=== PATIENT | female | born 1950 | race Caucasian/White ===

== ENCOUNTER → 2017-01-11 06:00 | Outpatient (REF) | payer MEDICARE, SELFPAY ==
[2017-01-11 07:57] LABS: Hematocrit 34.4 % (37-47); Hemoglobin 11.1 g/dl (12.0-15.0); Mean Corp Hgb Conc 32.3 g/gl (32-36); Mean Corpuscular Volume 89.8 fL (81-99); Mean Platelet Vol. 10.2 fl (6.2-12.0); Platelet Count 218 K/mm3 (150-450); RBC Distribution Width CV 13.3 % (11.6-14.6); RBC Distribution Width SD 43.1 fl (35.1-43.9); Red Blood Count 3.83 M/mm3 (4.2-5.4); White Blood Count 16.2 K/mm3 (4.4-11.0)
[2017-01-11 07:59] LABS: Scan Indicated on CBC? Y/N NO
[2017-01-11 08:04] LABS: Anion Gap 11 (5-15); BUN 20 mg/dL (7-18); BUN/Creat Ratio 58.8 RATIO (10-20); Calcium,Total 8.8 mg/dL (8.5-10.1); Chloride 100 mmol/L (98-107); Creatinine, Serum 0.34 mg/dL (0.55-1.02); EST Glomerular Filtration Rate 205 mL/min (>60); Est Glom Filt Rate - Afr Amer 249 mL/min (>60); Glucose 108 mg/dL (70-110); Potassium 3.4 mmol/L (3.5-5.1); Sodium Level 136 mmol/L (136-145)
== END ==
LOC: OLS.ACH 06:00
PROVIDERS: Visit Provider Family Medicine
DX: N39.0 Urinary tract infection, site not specified (principal)
CPT/HCPCS: 36415; 80048; 85027

== ENCOUNTER → 2017-02-21 05:00 | Outpatient (REF) | payer MEDICARE, SELFPAY ==
[2017-02-21 08:27] LABS: Hemoglobin 10.1 g/dl (12.0-15.0); Mean Corp Hgb Conc 32.6 g/gl (32-36); Mean Corpuscular Hgb 29.1 pg (27.0-32.0); Mean Corpuscular Volume 89.3 fL (81-99); Mean Platelet Vol. 10.5 fl (6.2-12.0); Platelet Count 227 K/mm3 (150-450); RBC Distribution Width CV 14.2 % (11.6-14.6); RBC Distribution Width SD 45.5 fl (35.1-43.9); Red Blood Count 3.47 M/mm3 (4.2-5.4); Scan Indicated on CBC? Y/N NO; White Blood Count 16.3 K/mm3 (4.4-11.0)
[2017-02-21 08:48] LABS: Anion Gap 11 (5-15); BUN 17 mg/dL (7-18); BUN/Creat Ratio 72.3 RATIO (10-20); Calcium,Total 8.4 mg/dL (8.5-10.1); Chloride 102 mmol/L (98-107); Creatinine, Serum 0.24 mg/dL (0.55-1.02); EST Glomerular Filtration Rate 315 mL/min (>60); Est Glom Filt Rate - Afr Amer 381 mL/min (>60); Glucose 119 mg/dL (70-110); Potassium 3.2 mmol/L (3.5-5.1); Sodium Level 137 mmol/L (136-145)
== END ==
LOC: OLS.ACH 05:00
PROVIDERS: Visit Provider Family Medicine
DX: N39.0 Urinary tract infection, site not specified (principal); A41.9 Sepsis, unspecified organism
CPT/HCPCS: 36415; 80048; 85027; 87804

== ENCOUNTER → 2017-02-26 16:00 | Outpatient (REF) | payer MEDICARE, SELFPAY | LOC: OLS.ACH 16:00 | PROVIDERS: Visit Provider Family Medicine | DX: J30.9 Allergic rhinitis, unspecified (principal) | CPT/HCPCS: 87804 ==

== ENCOUNTER → 2017-03-19 05:00 | Outpatient (REF) | payer MEDICARE, SELFPAY ==
[2017-03-19 08:04] LABS: Absolute Lymphocyte Count 0.95 X10^3/ul (0.83-4.51); Basophil# 0.02 X10^3/uL; Basophil% 0.3 % (0-1); Eosinophil# 0.35 X10^3/uL; Eosinophils% 5.7 % (0-5); Hematocrit 33.7 % (37-47); Hemoglobin 10.9 g/dl (12.0-15.0); Lymphocyte # 0.95 X10^3/ul (4.0); Lymphocyte % 15.4 % (19-41); Mean Corp Hgb Conc 32.3 g/gl (32-36); Mean Corpuscular Hgb 28.9 pg (27.0-32.0); Mean Corpuscular Volume 89.4 fL (81-99); Mean Platelet Vol. 10.3 fl (6.2-12.0); Monocyte# 0.81 X10^3/uL; Monocyte% 13.1 % (0-10); Neutrophil % 64.7 % (47-70); Platelet Count 216 K/mm3 (150-450); RBC Distribution Width CV 14.2 % (11.6-14.6); RBC Distribution Width SD 45.1 fl (35.1-43.9); Red Blood Count 3.77 M/mm3 (4.2-5.4); White Blood Count 6.2 K/mm3 (4.4-11.0)
[2017-03-19 08:34] LABS: AST(SGOT) 12 U/L (15-37); Alanine Aminotransfer ALT/SGPT 15 U/L (12-78); Albumin, Serum 3.2 g/dL (3.4-5.0); Alkaline Phosphatase 73 U/L (45-117); Anion Gap 8 (5-15); BUN 17 mg/dL (7-18); BUN/Creat Ratio 73.9 RATIO (10-20); Calcium,Total 8.4 mg/dL (8.5-10.1); Chloride 107 mmol/L (98-107); Creatinine, Serum 0.23 mg/dL (0.55-1.02); EST Glomerular Filtration Rate 322 mL/min (>60); Est Glom Filt Rate - Afr Amer 390 mL/min (>60); Globulin 3.3 g/dL (2.2-4.2); Glucose 83 mg/dL (70-110); Potassium 4.6 mmol/L (3.5-5.1); Protein, Total 6.5 g/dL (6.4-8.2); Sodium Level 140 mmol/L (136-145)
[2017-03-19 08:37] LABS: POSITIVE COUNT NO; POSITIVE DIFFERENTIAL NO; POSITIVE MORPHOLOGY NO
[2017-03-19 08:43] LABS: Vitamin D,25 Hydroxy 32.2 ng/mL
== END ==
LOC: OLS.ACH 05:00
PROVIDERS: Visit Provider Family Medicine
DX: I35.1 Nonrheumatic aortic (valve) insufficiency (principal); Z87.311 Personal history of (healed) other pathological fracture
CPT/HCPCS: 36415; 80053; 82306; 85025

== ENCOUNTER → 2017-05-30 16:31 | Outpatient (REF) | payer MEDICARE, SELFPAY ==
[2017-05-30 17:12] LABS: Color, Urine Yellow (Yellow); Glucose, Dipstick Normal (Normal); Ketone-Dipstick Negative (Negative); Leukocyte Esterase-Dipstick Negative /ul (Negative); Nitrite-Dipstick Negative (Negative); Occult Blood-Urine 10 /ul (Negative); Protein-Dipstick Negative (Negative); Urine Bilirubin Dipstick Negative (Negative); Urine Clarity Clear (Clear); Urine Urobilinogen Normal (Normal)
[2017-05-30 17:13] LABS: Hematocrit 36.2 % (37-47); Hemoglobin 11.5 g/dl (12.0-15.0); Mean Corp Hgb Conc 31.8 g/gl (32-36); Mean Corpuscular Volume 88.1 fL (81-99); Mean Platelet Vol. 10.1 fl (6.2-12.0); Platelet Count 228 K/mm3 (150-450); RBC Distribution Width CV 13.7 % (11.6-14.6); RBC Distribution Width SD 43.7 fl (35.1-43.9); Red Blood Count 4.11 M/mm3 (4.2-5.4); White Blood Count 5.7 K/mm3 (4.4-11.0)
[2017-05-30 17:15] LABS: Scan Indicated on CBC? Y/N NO
[2017-05-30 17:42] LABS: Anion Gap 7 (5-15); BUN 20 mg/dL (7-18); BUN/Creat Ratio 64.7 RATIO (10-20); Calcium,Total 8.7 mg/dL (8.5-10.1); Chloride 102 mmol/L (98-107); Creatinine, Serum 0.31 mg/dL (0.55-1.02); EST Glomerular Filtration Rate 229 mL/min (>60); Est Glom Filt Rate - Afr Amer 277 mL/min (>60); Glucose 112 mg/dL (74-106); Potassium 4.8 mmol/L (3.5-5.1); Sodium Level 136 mmol/L (136-145)
== END ==
LOC: OLS.ACH 16:31
PROVIDERS: Visit Provider Family Medicine
DX: N39.0 Urinary tract infection, site not specified (principal)
CPT/HCPCS: 36415; 80048; 81002; 85027; 87086

== ENCOUNTER → 2017-06-18 05:00 | Outpatient (REF) | payer MEDICARE, SELFPAY ==
[2017-06-18 08:10] LABS: Absolute Lymphocyte Count 0.83 X10^3/ul (0.83-4.51); Basophil# 0.01 X10^3/uL; Basophil% 0.1 % (0-1); Eosinophil# 0.08 X10^3/uL; Eosinophils% 1.2 % (0-5); Hematocrit 33.9 % (37-47); Hemoglobin 10.9 g/dl (12.0-15.0); Lymphocyte # 0.83 X10^3/ul (4.0); Lymphocyte % 12.4 % (19-41); Mean Corp Hgb Conc 32.2 g/gl (32-36); Mean Corpuscular Hgb 28.6 pg (27.0-32.0); Mean Platelet Vol. 10.4 fl (6.2-12.0); Monocyte# 0.71 X10^3/uL; Monocyte% 10.6 % (0-10); Neutrophil # 5.03 X10^3/uL (2.7-7.7); Neutrophil % 75.3 % (47-70); Platelet Count 197 K/mm3 (150-450); RBC Distribution Width CV 13.6 % (11.6-14.6); RBC Distribution Width SD 43.9 fl (35.1-43.9); Red Blood Count 3.81 M/mm3 (4.2-5.4); White Blood Count 6.7 K/mm3 (4.4-11.0)
[2017-06-18 08:11] LABS: Differential Indicated SCAN CRITERIA MET; POSITIVE COUNT YES; POSITIVE DIFFERENTIAL NO; POSITIVE MORPHOLOGY NO
[2017-06-18 08:30] LABS: Differential Comment SCANNED; Platelet Estimate ADEQUATE (ADEQ)
[2017-06-18 08:32] LABS: BUN 16 mg/dL (7-18); Glucose 82 mg/dL (74-106)
[2017-06-18 08:33] LABS: Anion Gap 11 (5-15); BUN/Creat Ratio 55.2 RATIO (10-20); Calcium,Total 7.9 mg/dL (8.5-10.1); Chloride 107 mmol/L (98-107); Creatinine, Serum 0.29 mg/dL (0.55-1.02); EST Glomerular Filtration Rate 247 mL/min (>60); Est Glom Filt Rate - Afr Amer 299 mL/min (>60); Potassium 4.7 mmol/L (3.5-5.1); Sodium Level 141 mmol/L (136-145)
== END ==
LOC: OLS.ACH 05:00
PROVIDERS: Visit Provider Family Medicine
DX: I35.1 Nonrheumatic aortic (valve) insufficiency (principal)
CPT/HCPCS: 36415; 80048; 85025

== ENCOUNTER → 2017-08-24 18:15 | Outpatient (REF) | payer MEDICARE, SELFPAY ==
[2017-08-24 19:06] LABS: Hematocrit 32.7 % (37-47); Hemoglobin 10.8 g/dl (12.0-15.0); Mean Corpuscular Volume 87.9 fL (81-99); Mean Platelet Vol. 9.7 fl (6.2-12.0); Platelet Count 197 K/mm3 (150-450); RBC Distribution Width CV 13.4 % (11.6-14.6); RBC Distribution Width SD 43.3 fl (35.1-43.9); Red Blood Count 3.72 M/mm3 (4.2-5.4); Scan Indicated on CBC? Y/N NO; White Blood Count 21.3 K/mm3 (4.4-11.0)
[2017-08-24 23:54] LABS: Color, Urine Yellow (Yellow); Glucose, Dipstick Normal (Normal); Ketone-Dipstick 15 mg/dl (Negative); Leukocyte Esterase-Dipstick 500 /ul (Negative); Nitrite-Dipstick Negative (Negative); Occult Blood-Urine 250 /ul (Negative); Protein-Dipstick 30 mg/dl (Negative); Specific Gravity, Urine 1.015 (1.002-1.030); Urine Bilirubin Dipstick Negative (Negative); Urine Clarity Sl. Cloudy (Clear); Urine Urobilinogen Normal (Normal)
== END ==
LOC: OLS.ACH 18:15
PROVIDERS: Visit Provider Family Medicine
DX: I70.203 Unspecified atherosclerosis of native arteries of extremities, bilateral legs (principal); N31.9 Neuromuscular dysfunction of bladder, unspecified
CPT/HCPCS: 36415; 81002; 85027; 87086; 87088; 87186

== ENCOUNTER → 2017-09-17 05:00 | Outpatient (REF) | payer MEDICARE, SELFPAY ==
[2017-09-17 08:27] LABS: Absolute Lymphocyte Count 0.93 X10^3/ul (0.83-4.51); Absolute Neutrophil Count 4.4 X10^3/uL (2.0-7.7); Basophil# 0.01 X10^3/uL; Basophil% 0.2 % (0-1); Eosinophil# 0.17 X10^3/uL; Eosinophils% 2.7 % (0-5); Hemoglobin 10.7 g/dl (12.0-15.0); Lymphocyte # 0.93 X10^3/ul (4.0); Mean Corp Hgb Conc 32.4 g/gl (32-36); Mean Corpuscular Hgb 29.1 pg (27.0-32.0); Mean Corpuscular Volume 89.7 fL (81-99); Mean Platelet Vol. 10.3 fl (6.2-12.0); Monocyte% 11.3 % (0-10); Neutrophil # 4.39 X10^3/uL (2.7-7.7); Neutrophil % 70.6 % (47-70); Platelet Count 220 K/mm3 (150-450); RBC Distribution Width CV 13.3 % (11.6-14.6); RBC Distribution Width SD 42.9 fl (35.1-43.9); Red Blood Count 3.68 M/mm3 (4.2-5.4); White Blood Count 6.2 K/mm3 (4.4-11.0)
[2017-09-17 08:31] LABS: POSITIVE COUNT NO; POSITIVE DIFFERENTIAL NO; POSITIVE MORPHOLOGY NO
[2017-09-17 09:07] LABS: ALB/GLOB Ratio 1.1 RATIO (0.9-2.4); AST(SGOT) 15 U/L (15-37); Alanine Aminotransfer ALT/SGPT 16 U/L (13-56); Albumin, Serum 3.4 g/dL (3.2-5.0); Alkaline Phosphatase 63 U/L (45-117); Anion Gap 10 (5-15); BUN 20 mg/dL (7-18); BUN/Creat Ratio 56.3 RATIO (10-20); Calcium,Total 8.3 mg/dL (8.5-10.1); Chloride 104 mmol/L (98-107); Creatinine, Serum 0.36 mg/dL (0.55-1.02); EST Glomerular Filtration Rate 195 mL/min (>60); Est Glom Filt Rate - Afr Amer 236 mL/min (>60); Globulin 3.1 g/dL (2.2-4.2); Glucose 80 mg/dL (74-106); Protein, Total 6.5 g/dL (6.4-8.2); Sodium Level 142 mmol/L (136-145)
== END ==
LOC: OLS.ACH 05:00
PROVIDERS: Visit Provider Family Medicine
DX: I35.1 Nonrheumatic aortic (valve) insufficiency (principal)
CPT/HCPCS: 36415; 80053; 85025

== ENCOUNTER → 2017-09-19 19:00 | Outpatient (REF) | payer MEDICARE, SELFPAY ==
[2017-09-19 21:15] LABS: Bacteria 0 SEEN /hpf (None Seen); Mucous, Urine 0 SEEN /hpf (<or=2+); Red Blood Cells-Urine 0 SEEN /hpf (0-5); White Blood Cells 0 SEEN /hpf (0-5)
[2017-09-19 21:20] LABS: Color, Urine Yellow (Yellow); Glucose, Dipstick Normal (Normal); Ketone-Dipstick Negative (Negative); Leukocyte Esterase-Dipstick Negative /ul (Negative); Nitrite-Dipstick Negative (Negative); Occult Blood-Urine Negative /ul (Negative); Protein-Dipstick Negative (Negative); Urine Bilirubin Dipstick Negative (Negative); Urine Clarity Clear (Clear); Urine Urobilinogen Normal (Normal)
[2017-09-19 21:30] LABS: Squamous Epithelial Cells - UA 0-5 SEEN /hpf (5-10)
== END ==
LOC: OLS.ACH 19:00
PROVIDERS: Visit Provider Family Medicine
DX: N31.9 Neuromuscular dysfunction of bladder, unspecified (principal); R32 Unspecified urinary incontinence
CPT/HCPCS: 81001; 87086

== ENCOUNTER → 2017-12-17 05:00 | Outpatient (REF) | payer MEDICARE, SELFPAY ==
[2017-12-17 07:54] LABS: Absolute Neutrophil Count 4.5 X10^3/uL (2.0-7.7); Basophil# 0.02 X10^3/uL; Basophil% 0.3 % (0-1); Eosinophil# 0.24 X10^3/uL; Eosinophils% 3.8 % (0-5); Hematocrit 32.9 % (37-47); Hemoglobin 10.6 g/dl (12.0-15.0); Lymphocyte % 12.7 % (19-41); Mean Corp Hgb Conc 32.2 g/gl (32-36); Mean Corpuscular Hgb 28.9 pg (27.0-32.0); Mean Corpuscular Volume 89.6 fL (81-99); Monocyte# 0.72 X10^3/uL; Monocyte% 11.4 % (0-10); Neutrophil % 71.3 % (47-70); Platelet Count 211 K/mm3 (150-450); RBC Distribution Width CV 12.9 % (11.6-14.6); RBC Distribution Width SD 41.2 fl (35.1-43.9); Red Blood Count 3.67 M/mm3 (4.2-5.4); White Blood Count 6.3 K/mm3 (4.4-11.0)
[2017-12-17 07:57] LABS: POSITIVE COUNT NO; POSITIVE DIFFERENTIAL NO; POSITIVE MORPHOLOGY NO
[2017-12-17 08:10] LABS: ALB/GLOB Ratio 0.8 RATIO (0.9-2.4); AST(SGOT) 10 U/L (15-37); Alanine Aminotransfer ALT/SGPT 17 U/L (13-56); Alkaline Phosphatase 69 U/L (45-117); Anion Gap 8 (5-15); BUN 16 mg/dL (7-18); BUN/Creat Ratio 49.4 RATIO (10-20); Calcium,Total 8.5 mg/dL (8.5-10.1); Chloride 105 mmol/L (98-107); Creatinine, Serum 0.32 mg/dL (0.55-1.02); EST Glomerular Filtration Rate 217 mL/min (>60); Est Glom Filt Rate - Afr Amer 262 mL/min (>60); Globulin 3.8 g/dL (2.2-4.2); Glucose 91 mg/dL (74-106); Potassium 4.3 mmol/L (3.5-5.1); Protein, Total 6.8 g/dL (6.4-8.2); Sodium Level 140 mmol/L (136-145)
== END ==
LOC: OLS.ACH 05:00
PROVIDERS: Visit Provider Family Medicine
DX: I35.1 Nonrheumatic aortic (valve) insufficiency (principal)
CPT/HCPCS: 36415; 80053; 85025

== ENCOUNTER → 2018-02-26 17:00 | Outpatient (REF) | payer MEDICARE, SELFPAY ==
--- OUTSIDE RECORDS SUMMARY | 2018-05-31 07:59 | XMS RPT_ITS ---
:1950 Author Organization OHIP Care Team Providers Name Role Phone Rogelio Jason Attending Unavailable Petrilla, Rogelio Attending Unavailable Petrilla, Rogelio Attending Unavailable PETRILLA, ROGELIO Attending Unavailable Petrilla, Rogelio Attending Unavailable Petrilla, Rogelio Attending Unavailable Petrilla, Rogelio Attending Unavailable Petrilla, Rogelio Attending Unavailable Petrilla, Rogelio Attending Unavailable Petrilla, Rogelio Attending Unavailable UNKNOWN, PROVIDER Referring Unavailable Rogelio Jason Primary Care Unavailable Edgar Jansen Attending Unavailable DEANN TIMMONS Admitting Unavailable DEANN TIMMONS Attending Unavailable Deann Timmons Attending Unavailable DMITRY WEST Primary Care Unavailable DILIA CHAPIN Admitting Unavailable Rogelio Jason Referring Unavailable PROBLEMS PROBLEMS DATE TYPE CONDITION / CODE ATTENDING STATUS SOURCE 03/20/2018 Unknown R32 - Unspecified Petrilla, Active [place] urinary incontinence [facility] / R32(ICD-10) Hospital Repository 01/16/2018 Unknown 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, bilateral legs / I70.203(ICD-10) 05/30/2017 Admitting Tachycardia, Edgar Jansen Active [facility] Diagnosis unspecified / System R00.0(ICD-10) Repository 05/30/2017 Admitting Cerebral palsy, Edgar Jansen [employer] [facility] Diagnosis unspecified / System G80.9(ICD-10) Repository 05/30/2017 Admitting Multiple sclerosis / Edgar Jansen [employer] [facility] Diagnosis G35(ICD-10) System Repository 05/30/2017 Admitting Major depressive Edgar Jansen [employer] [facility] Diagnosis disorder, single System episode, unspecified Repository / F32.9(ICD-10) 05/30/2017 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 / Repository Z90.710(ICD-10) 05/30/2017 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 [employer] [facility] Diagnosis use of aspirin / System Z79.82(ICD-10) Repository 05/30/2017 Admitting Allergy status to Edgar Jansen [employer] [facility] Diagnosis other antibiotic System agents status / Repository Z88.1(ICD-10) 05/30/2017 Admitting Allergy status to Edgar Jansen [employer] [facility] Diagnosis penicillin / System Z88.0(ICD-10) Repository 05/30/2017 Admitting Allergy status to Edgar Jansen [employer] [facility] Diagnosis oth drug/meds/biol System subst status / Repository Z88.8(ICD-10) 05/30/2017 Admitting Palpitations / Edgar Jansen [employer] [facility] Diagnosis R00.2(ICD-10) System Repository 09/04/2017 Unknown N39.0 - Urinary Petrilla, Active [place] tract infection, [facility] site not specified / Hospital N39.0(ICD-10) Repository PROCEDURES PROCEDURES No Procedure Records FoundRESULTS RESULTS CBC W/DIFF, AUTOMATED Collected: 03/25/2018 Status: F Source: [place] 5:01 AM [facility] REPOSITORY Order Comment: 211/1 TYPE CODE TESTS RESULT OUT OF RANGE REFERENCE UNITS LAB L100.1000 4.4-11.0 K/mm3 Normal WBC 4.4 LAB L100.1200 4.2-5.4 M/mm3 Low RBC 3.64 LAB L100.1300 12.0-15.0 g/dl Low HGB 10.3 LAB L100.1400 37-47 % Low HCT 32.4 LAB L100.1500 81-99 fL Normal MCV 89.0 LAB L100.1600 27.0-32.0 pg Normal MCH 28.3 LAB L100.1700 32-36 g/gl Low MCHC 31.8 LAB L100.1810 11.6-14.6 % Normal RDW CV 14.1 LAB L100.1820 35.1-43.9 fl High RDW SD 44.8 LAB L100.1900 150-450 K/mm3 Normal PLT 173 LAB L100.2000 6.2-12.0 fl Normal MPV 9.8 LAB L100.2100 47-70 % Normal NEUT% 64.3 LAB L100.2200 19-41 % Low LY% 17.5 LAB L100.2300 0-10 % High MONO% 14.7 LAB L100.2400 0-5 % Normal EO% 2.5 LAB L100.2500 0-1 % Normal BASO% 0.5 LAB L100.2550 0.0-0.9 % Normal IM GRAN % 0.500 Result Comment: IG% - Immature Granulocytes (promyelocytes, myelocytes and metamyelocytes) > 1% indicates that a LEFT SHIFT is Present. LAB L100.2620 2.0-7.7 X10 3/uL Normal Absolute Neut 2.8 LAB L100.2720 0.83-4.51 X10 3/ul Low Absolute Lymph 0.77 Performed By: #### L100.0100 #### [facility] [address] [place] [address]. [place], [place], [address] COMPREHENSIVE METABOLIC Collected: 03/25/2018 Status: F Source: [place] 5:01 AM [facility] REPOSITORY Order Comment: TYPE CODE TESTS RESULT OUT OF RANGE REFERENCE UNITS LAB L501.0100 74-106 mg/dL Normal GLU 86 Result Comment: Please note revised GLUCOSE reference range effective 2017. LAB L501.1000 7-18 mg/dL Normal BUN 15 LAB L501.1100 0.55-1.02 mg/dL Low CREAT,SERUM 0.31 Result Comment: The validity of the calculated GFR AND GFRAA in patients over 70 years has not been determined. Clinical correlation is essential. LAB L501.1110 >60 mL/min Normal EST GFR 229 Result Comment: Non- GFR Calc LAB L501.1115 >60 mL/min Normal EST GFR - AA 278 Result Comment: GFR Calc LAB L501.1300 10-20 RATIO High BUN/CRE 48.7 LAB L501.1500 6.4-8.2 g/dL Low T PROT 6.3 LAB L501.1800 3.2-5.0 g/dL Normal ALB 3.2 LAB L501.1950 2.2-4.2 g/dL Normal GLOB 3.1 LAB L501.2000 0.9-2.4 RATIO Normal A/G 1.0 LAB L501.2200 8.5-10.1 mg/dL Low CA 8.4 LAB L501.4100 15-37 U/L Low AST 13 LAB L501.4305 45-117 U/L Normal ALK P 60 LAB L501.4405 13-56 U/L Normal ALT 17 LAB L501.4600 0.20-1.00 mg/dL T Normal BILI 0.30 LAB L501.5300 136-145 mmol/L NA Normal 137 LAB L501.5600 3.5-5.1 mmol/L K Normal 4.3 LAB L501.5900 98-107 mmol/L CL Normal 103 LAB L501.6100 21.0-32.0 mmol/L Normal CO2 25.0 LAB L501.6200 5-15 Normal GAP 9 Performed By: #### L500.4050 #### [facility] Laboratory [facility] [place], [address] Observed: 02/26/2018 Status: F Source: [place] CULTURE, URINE 5:00 PM [facility] REPOSITORY Urine Culture ORGANISM 1: Pseudomonas aeroginosa [place] Count >100,000 Pseudomonas aeroginosa: REACTION Cefepime $ 2 S Ceftazidime *NF 4 S Ciprofloxacin $ <=0.25 S Gentamicin $ 2 S Imipenem *NF 2 S Levofloxacin $ 0.5 S Piperacillin/Tazobactam $$ <=4 S Tobramycin $ <=1 S (NF) indicates non-formulary drug at [facility]. Approval by Infectious Disease Specialist required before non-formulary drugs may be ordered and/or dispensed. Performed By: #### M100.0650 #### [facility] [address] [place], [address] Observed: 01/16/2018 Status: F Source: [place] CULTURE, URINE 2:45 AM [facility] REPOSITORY Urine Culture ORGANISM 1: Enterobacter cloacae complex [place] Count 50,000-80,000 Enterobacter cloacae complex: REACTION Amoxacillin/Clavulanic Acid $ >=32 R Cefazolin $ >=64 R Cefepime $ <=1 S Ceftriaxone $ >=64 R Ciprofloxacin $ <=0.25 S Ertapenim $$$ <=0.5 S Gentamicin $ <=1 S Imipenem *NF 1 S Levofloxacin $ <=0.12 S Nitrofurantoin $ 64 I Piperacillin/Tazobactam $$ >=128 R Tobramycin $ <=1 S Trimethoprim/Sulfametho $ 40 S (NF) indicates non-formulary drug at [facility]. Approval by Infectious Disease Specialist required before non-formulary drugs may be ordered and/or dispensed. Performed By: #### M100.0650 #### [facility] [address] [place], [address] CBC W/DIFF, AUTOMATED Collected: 12/17/2017 Status: F Source: [place] 5:20 AM [facility] REPOSITORY Order Comment: 211/1 TYPE CODE TESTS RESULT OUT OF RANGE REFERENCE UNITS LAB L100.1000 4.4-11.0 K/mm3 Normal WBC 6.3 LAB L100.1200 4.2-5.4 M/mm3 Low RBC 3.67 LAB L100.1300 12.0-15.0 g/dl Low HGB 10.6 LAB L100.1400 37-47 % Low HCT 32.9 LAB L100.1500 81-99 fL Normal MCV 89.6 LAB L100.1600 27.0-32.0 pg Normal MCH 28.9 LAB L100.1700 32-36 g/gl Normal MCHC 32.2 LAB L100.1810 11.6-14.6 % Normal RDW CV 12.9 LAB L100.1820 35.1-43.9 fl Normal RDW SD 41.2 LAB L100.1900 150-450 K/mm3 Normal PLT 211 LAB L100.2000 6.2-12.0 fl Normal MPV 10.0 LAB L100.2100 47-70 % High NEUT% 71.3 LAB L100.2200 19-41 % Low LY% 12.7 LAB L100.2300 0-10 % High MONO% 11.4 LAB L100.2400 0-5 % Normal EO% 3.8 LAB L100.2500 0-1 % Normal BASO% 0.3 LAB L100.2550 0.0-0.9 % Normal IM GRAN % 0.500 Result Comment: IG% - Immature Granulocytes (promyelocytes, myelocytes and metamyelocytes) > 1% indicates that a LEFT SHIFT is Present. LAB L100.2620 2.0-7.7 X10 3/uL Normal Absolute Neut 4.5 LAB L100.2720 0.83-4.51 X10 3/ul Low Absolute Lymph 0.80 Performed By: #### L100.0100 #### [facility] [address] [place], [place], [address] COMPREHENSIVE METABOLIC Collected: 12/17/2017 Status: F Source: [facility] 5:20 AM [facility] REPOSITORY Order Comment: TYPE CODE TESTS RESULT OUT OF RANGE REFERENCE UNITS LAB L501.0100 74-106 mg/dL Normal GLU 91 Result Comment: Please note revised GLUCOSE reference range effective 2017. LAB L501.1000 7-18 mg/dL Normal BUN 16 LAB L501.1100 0.55-1.02 mg/dL Low CREAT,SERUM 0.32 Result Comment: The validity of the calculated GFR AND GFRAA in patients over 70 years has not been determined. Clinical correlation is essential. LAB L501.1110 >60 mL/min Normal EST GFR 217 Result Comment: Non- GFR Calc LAB L501.1115 >60 mL/min Normal EST GFR - AA 262 Result Comment: GFR Calc LAB L501.1300 10-20 RATIO High BUN/CRE 49.4 LAB L501.1500 6.4-8.2 g/dL T Normal PROT 6.8 LAB L501.1800 3.2-5.0 g/dL Low ALB 3.0 LAB L501.1950 2.2-4.2 g/dL Normal GLOB 3.8 LAB L501.2000 0.9-2.4 RATIO Low A/G 0.8 LAB L501.2200 8.5-10.1 mg/dL CA Normal 8.5 LAB L501.4100 15-37 U/L Low AST 10 LAB L501.4305 45-117 U/L Normal ALK P 69 LAB L501.4405 13-56 U/L Normal ALT 17 LAB L501.4600 0.20-1.00 mg/dL T Normal BILI 0.30 LAB L501.5300 136-145 mmol/L NA Normal 140 LAB L501.5600 3.5-5.1 mmol/L K Normal 4.3 LAB L501.5900 98-107 mmol/L CL Normal 105 LAB L501.6100 21.0-32.0 mmol/L Normal CO2 27.0 LAB L501.6200 5-15 Normal GAP 8 Performed By: #### L500.4050 #### [facility] [place], [address] CT ASPIRATION BLADDER Observed: 12/13/2017 Status: F Source: [facility] INSERTION SUBERPUBIC 12:18 PM [facility] CAT[facility] REPOSITORY Performed at [facility] APPROVED BY: Dilia Chapin MD PROCEDURE(S): 1. Ultrasound fluoroscopic guided central venous catheter placement via right common femoral vein 2. Ultrasound and fluoroscopic guided suprapubic catheter placement CLINICAL HISTORY: 67-year-old female with urinary retention and multiple urinary tract infections. Image guided suprapubic catheter placement requested. IV access could not be obtained after multiple attempts and preprocedural antibiotics and sedation were required, therefore a central line was also required. COMPARISON: None TECHNICAL DETAILS: Interventional Radiologist: Dilia Chapin M.D. Sedation: Moderate sedation with IV fentanyl and Versed administered by the radiology nurse under the direct supervision of the interventional radiologist for approximately 30 minutes. Contrast: 15 mL Omnipaque 300 Fluoroscopy time: 24 seconds. Estimated radiation dose: 2 mGy Equipment: Bard suprapubic catheter set with 14 Armenian introducer needle and 12 Armenian Dillon catheter, micropuncture set PROCEDURE/FINDINGS: Informed consent was obtained from the patient and consent form was signed by her brother at her request. This included an explanation of procedure details, risks, benefits, and alternative treatment o ptions. The patient was brought to the interventional radiology suite and positioned supine on the table. A pre-procedure timeout was conducted. The suprapubic region and left groin were prepped and draped in the usual sterile fashion. Following administration of local anesthetic, the right common femoral artery was accessed under direct ultras ound guidance. A guidewire was placed and the needle and the needle was removed. A micropuncture catheter was advanced over the microguidewire and guidewire removed. This was utilized for intravenous access for the duration of the procedure. After which, antibiotics were administered and sedation was induced. The bladder was evaluated with ultrasound and noted to be moderately distended. An appropriate needle entry site and trajectory were determined and 2% lidocaine was injected and the skin and and subcut aneous tissues along the tract under ultrasound guidance. A 22-gauge spinal needle was advanced into the bladder with ultrasound guidance. Contrast was injected into the bladder, confirming position and further distending the bladder. The introducer needle with indwelling Dillon catheter were then inserted into the bladder. The introducer was then removed. Contrast was injected to confirm appropriate position. The retention balloon on the Dillon was then inflated with sterile saline. The catheter was then sterilely dressed utilizing drain sponge, gauze, and Tegaderm. The patient tolerated the procedure well and no immediate complications were encountered. IMPRESSION: 1. Technically successful, ultrasound and fluoroscopic guided placement of a nontunneled central venous catheter via right common femoral vein. 2. Technically successful, ultrasound and fluoroscopic guided placement of a suprapubic 12 Armenian Dillon catheter. HOSP Observed: 12/04/2017 Status: COMPLETED Source: [place] 12:00 AM CLINIC OTHER CAMPUS REPOSITORY Patient:Aditi Manuel MRN: <[id number]> Height:No patient height recorded for this patient. Weight:No patient weight recorded within the last 30 days. Outpatient Medications as of 12/13/17: aspirin 81 mg chewable tablet MODAFINIL 100 MG TAB FLAXSEED OIL 1,000 MG CAP THERAPEUTIC MULTIVITAMIN TAB oxybutynin chloride(DITROPAN 5 MG TAB) AVONEX 30 MCG/VIAL IM KIT Admission/Clinic Administered Medications as of 12/13/17: cefTRIAXone iv piggyback 1 g in dextrose (iso-osmotic) 50 mL (ROCEPHIN) Problem List: No problem list on file for this patient. Allergies: Ciprofloxacin Codeine Fluoxetine Hcl Penicillins Solumedrol [Methylprednisolone Sodium Succ] Date Verified: 12/13/17 Lab Values No results within the last 30 days for the following basenames: K,HCT No progress notes entered within the past 30 days URINALYSIS, COMPLETE Collected: 09/19/2017 Status: F Source: [place] 7:00 PM [facility] REPOSITORY Order Comment: How was Urine Obtained? CLEAN CATCH TYPE CODE TESTS RESULT OUT OF RANGE REFERENCE UNITS LAB L400.3000 Yellow COLOR Normal Yellow LAB L400.3050 Clear Normal CLARITY Clear LAB L400.3200 Normal mg/dl Normal GLUCOSE, UR Normal LAB L400.3300 Negative mg/dL Normal BILIRUBIN URINE Negative LAB L400.3400 Negative mg/dl Normal KETONE UR Negative LAB L400.3465 1.002-1.030 Normal SP.GR. DIPSTX 1.010 LAB L400.3550 5.0 - 8.0 pH UR Normal 7.0 LAB L400.3600 Negative mg/dl PROT Normal DIPSTX Negative LAB L400.3700 Normal mg/dl Normal UROBILI Normal LAB L400.3750 Negative Normal NITRITE UR Negative LAB L400.3780 Negative /ul Normal OCCULT BLOOD-UR Negative LAB L400.3800 Negative /ul LEUK Normal ESTERASE Negative LAB L400.4050 0-5 /hpf WBC 0 Normal SEEN LAB L400.4100 0-5 /hpf 0 Normal RBC-UA SEEN LAB L400.4150 5-10 /hpf SQUAM Normal EPI 0-5 SEEN LAB L400.4300 None Seen /hpf 0 Normal BACTERIA SEEN LAB L400.4350 <or=2+ /hpf 0 Normal MUCUS, URINE SEEN Performed By: #### L400.0001 #### [facility] Laboratory [address] [place], [place], [id number] Observed: 09/19/2017 Status: F Source: [place] CULTURE, URINE 7:00 PM [facility] REPOSITORY Urine Culture Culture exhibits no growth. Performed By: #### M100.0650 #### [facility] Laboratory [address] [facility] [address] [place], [place], [id number] CBC W/DIFF, AUTOMATED Collected: 09/17/2017 Status: F Source: [place] 5:55 AM [facility] REPOSITORY TYPE CODE TESTS RESULT OUT OF RANGE REFERENCE UNITS LAB L100.1000 4.4-11.0 K/mm3 Normal WBC 6.2 LAB L100.1200 4.2-5.4 M/mm3 Low RBC 3.68 LAB L100.1300 12.0-15.0 g/dl Low HGB 10.7 LAB L100.1400 37-47 % Low HCT 33.0 LAB L100.1500 81-99 fL Normal MCV 89.7 LAB L100.1600 27.0-32.0 pg Normal MCH 29.1 LAB L100.1700 32-36 g/gl Normal MCHC 32.4 LAB L100.1810 11.6-14.6 % Normal RDW CV 13.3 LAB L100.1820 35.1-43.9 fl Normal RDW SD 42.9 LAB L100.1900 150-450 K/mm3 Normal PLT 220 LAB L100.2000 6.2-12.0 fl Normal MPV 10.3 LAB L100.2100 47-70 % High NEUT% 70.6 LAB L100.2200 19-41 % Low LY% 15.0 LAB L100.2300 0-10 % High MONO% 11.3 LAB L100.2400 0-5 % Normal EO% 2.7 LAB L100.2500 0-1 % Normal BASO% 0.2 LAB L100.2550 0.0-0.9 % Normal IM GRAN % 0.200 Result Comment: IG% - Immature Granulocytes (promyelocytes, myelocytes and metamyelocytes) > 1% indicates that a LEFT SHIFT is Present. LAB L100.2620 2.0-7.7 X10 3/uL Normal Absolute Neut 4.4 LAB L100.2720 0.83-4.51 X10 3/ul Normal Absolute Lymph 0.93 Performed By: #### L100.0100 #### [facility] [address] [place], [address] COMPREHENSIVE METABOLIC Collected: 09/17/2017 Status: F Source: [place] [facility] 5:55 AM [facility] REPOSITORY TYPE CODE TESTS RESULT OUT OF RANGE REFERENCE UNITS LAB L501.0100 74-106 mg/dL Normal GLU 80 Result Comment: Please note revised GLUCOSE reference range effective 2017. LAB L501.1000 7-18 mg/dL High BUN 20 LAB L501.1100 0.55-1.02 mg/dL Low CREAT,SERUM 0.36 Result Comment: The validity of the calculated GFR AND GFRAA in patients over 70 years has not been determined. Clinical correlation is essential. LAB L501.1110 >60 mL/min Normal EST GFR 195 Result Comment: Non- GFR Calc LAB L501.1115 >60 mL/min Normal EST GFR - AA 236 Result Comment: GFR Calc LAB L501.1300 10-20 RATIO High BUN/CRE 56.3 LAB L501.1500 6.4-8.2 g/dL T Normal PROT 6.5 LAB L501.1800 3.2-5.0 g/dL Normal ALB 3.4 LAB L501.1950 2.2-4.2 g/dL Normal GLOB 3.1 LAB L501.2000 0.9-2.4 RATIO Normal A/G 1.1 LAB L501.2200 8.5-10.1 mg/dL Low CA 8.3 LAB L501.4100 15-37 U/L Normal AST 15 LAB L501.4305 45-117 U/L Normal ALK P 63 LAB L501.4405 13-56 U/L Normal ALT 16 LAB L501.4600 0.20-1.00 mg/dL T Normal BILI 0.30 LAB L501.5300 136-145 mmol/L NA Normal 142 LAB L501.5600 3.5-5.1 mmol/L K Normal 4.0 LAB L501.5900 98-107 mmol/L CL Normal 104 LAB L501.6100 21.0-32.0 mmol/L Normal CO2 28.0 LAB L501.6200 5-15 Normal GAP 10 Performed By: #### L500.4050 #### [facility] [place], [address] URINALYSIS, ROUTINE Collected: 08/24/2017 Status: F Source: [place] (DIPSTICK) 7:45 PM [facility] REPOSITORY Order Comment: How was Urine Obtained? CLEAN CATCH TYPE CODE TESTS RESULT OUT OF RANGE REFERENCE UNITS LAB L400.3000 Yellow COLOR Normal Yellow LAB L400.3050 Clear Normal CLARITY Sl. Cloudy LAB L400.3200 Normal mg/dl Normal GLUCOSE, UR Normal LAB L400.3300 Negative mg/dL Normal BILIRUBIN URINE Negative LAB L400.3400 Negative mg/dl High 15 KETONE UR LAB L400.3465 1.002-1.030 Normal SP.GR. DIPSTX 1.015 LAB L400.3550 5.0 - 8.0 pH UR Normal 6.0 LAB L400.3600 Negative mg/dl High PROT 30 DIPSTX LAB L400.3700 Normal mg/dl Normal UROBILI Normal LAB L400.3750 Negative Normal NITRITE UR Negative LAB L400.3780 Negative /ul High OCCULT BLOOD-UR 250 LAB L400.3800 Negative /ul High [place] ESTERASE 500 Performed By: #### L400.2010 #### [facility] Laboratory [address] [facility] [place], [place], [id number] Observed: 08/24/2017 Status: F Source: [place] CULTURE, URINE 7:45 PM [facility] REPOSITORY Urine Culture ORGANISM 1: Presumptive E. coli [place] Count >100,000 Presumptive E. coli: REACTION Amoxacillin/Clavulanic Acid $ <=2 S Ampicillin $ 4 S Ampicillin/Sulbactam $ <=2 S Cefazolin $ <=4 S Cefepime $ <=1 S Ceftriaxone $ <=1 S Ciprofloxacin $ >=4 R ESBL - Ertapenim $$$ <=0.5 S Gentamicin $ <=1 S Imipenem *NF <=0.25 S Levofloxacin $ >=8 R Nitrofurantoin $ 64 I Piperacillin/Tazobactam $$ <=4 S Tobramycin $ <=1 S Trimethoprim/Sulfametho $ >=320 R (NF) indicates non-formulary drug at [facility]. Approval by Infectious Disease Specialist required before non-formulary drugs may be ordered and/or dispensed. Performed By: #### M100.0650 #### [facility] [address] [facility] [place], [place], [address] CBC-COMPLETE BLOOD CNT Collected: 08/24/2017 Status: F Source: [place] NO DIFF 6:15 PM [facility] REPOSITORY TYPE CODE TESTS RESULT OUT OF RANGE REFERENCE UNITS LAB L100.1000 4.4-11.0 K/mm3 High WBC 21.3 LAB L100.1200 4.2-5.4 M/mm3 Low RBC 3.72 LAB L100.1300 12.0-15.0 g/dl Low HGB 10.8 LAB L100.1400 37-47 % Low HCT 32.7 LAB L100.1500 81-99 fL Normal MCV 87.9 LAB L100.1600 27.0-32.0 pg Normal MCH 29.0 LAB L100.1700 32-36 g/gl Normal MCHC 33.0 LAB L100.1810 11.6-14.6 % Normal RDW CV 13.4 LAB L100.1820 35.1-43.9 fl Normal RDW SD 43.3 LAB L100.1900 150-450 K/mm3 Normal PLT 197 LAB L100.2000 6.2-12.0 fl Normal MPV 9.7 Performed By: #### L100.0500 #### [facility] Laboratory [facility] [place], [address] CBC W/DIFF, AUTOMATED Collected: 06/18/2017 Status: F Source: [place] 6:49 AM [facility] REPOSITORY TYPE CODE TESTS RESULT OUT OF RANGE REFERENCE UNITS LAB L100.1000 4.4-11.0 K/mm3 Normal WBC 6.7 LAB L100.1200 4.2-5.4 M/mm3 Low RBC 3.81 LAB L100.1300 12.0-15.0 g/dl Low HGB 10.9 LAB L100.1400 37-47 % Low HCT 33.9 LAB L100.1500 81-99 fL Normal MCV 89.0 LAB L100.1600 27.0-32.0 pg Normal MCH 28.6 LAB L100.1700 32-36 g/gl Normal MCHC 32.2 LAB L100.1810 11.6-14.6 % Normal RDW CV 13.6 LAB L100.1820 35.1-43.9 fl Normal RDW SD 43.9 LAB L100.1900 150-450 K/mm3 Normal PLT 197 LAB L100.2000 6.2-12.0 fl Normal MPV 10.4 LAB L100.2100 47-70 % High NEUT% 75.3 LAB L100.2200 19-41 % Low LY% 12.4 LAB L100.2300 0-10 % High MONO% 10.6 LAB L100.2400 0-5 % Normal EO% 1.2 LAB L100.2500 0-1 % Normal BASO% 0.1 LAB L100.2550 0.0-0.9 % Normal IM GRAN % 0.400 Result Comment: IG% - Immature Granulocytes (promyelocytes, myelocytes and metamyelocytes) > 1% indicates that a LEFT SHIFT is Present. LAB L100.2620 2.0-7.7 X10 3/uL Normal Absolute Neut 5.0 LAB L100.2720 0.83-4.51 X10 3/ul Normal Absolute Lymph 0.83 LAB L100.4500 Normal SMEAR COMMENT SCANNED Result Comment: RARE LARGE AND GIANT PLATETS NOTED RARE MICRO CLOTS NOTED. LAB L100.5500 ADEQ Normal PLT ADEQUATE EST Performed By: #### L100.0100 #### [facility] [address] [place], [address] BASIC METABOLIC Collected: 06/18/2017 Status: F Source: [place] PROFILE (BMP) 6:49 AM [facility] REPOSITORY Order Comment: SPECIMEN WAS QNS TO RUN A CMP. PER YUNG THE NURSE (VENU) AT [facility] SAID IT WAS OK TO DO A BMP. THEY WILL HAVE HER REDRAWN FOR A CMP IF NEEDED. TYPE CODE TESTS RESULT OUT OF RANGE REFERENCE UNITS LAB L501.0100 74-106 mg/dL Normal GLU 82 Result Comment: Please note revised GLUCOSE reference range effective 2017. LAB L501.1000 7-18 mg/dL Normal BUN 16 LAB L501.1100 0.55-1.02 mg/dL Low CREAT,SERUM 0.29 Result Comment: The validity of the calculated GFR AND GFRAA in patients over 70 years has not been determined. Clinical correlation is essential. LAB L501.1110 >60 mL/min Normal EST GFR 247 LAB L501.1115 >60 mL/min Normal EST GFR - AA 299 LAB L501.1300 10-20 RATIO High BUN/CRE 55.2 LAB L501.2200 8.5-10.1 mg/dL Low CA 7.9 LAB L501.5300 136-145 mmol/L Normal NA 141 LAB L501.5600 3.5-5.1 mmol/L Normal K 4.7 LAB L501.5900 98-107 mmol/L Normal CL 107 LAB L501.6100 21.0-32.0 mmol/L Normal CO2 23.0 LAB L501.6200 5-15 Normal GAP 11 Performed By: #### L500.2500 #### [facility] [address] [place], [address] CR CHEST PORTABLE Observed: 05/30/2017 Status: F Source: [employer] 9:11 PM SYSTEM REPOSITORY Patient Name: ADITI MANUEL Diagnostic Radiology Exam Date/Time 05/30/2017 20:59:15 EDT Exam CR Chest Portable Ordering Physician FRAN BISWAS PETER J Accession Number [id number] CPT4 Codes 38315 () Reason For Exam palpitations Report PORTABLE CHEST: INDICATION: Cardiac arrhythmia COMPARISON: 08/13/2016 Obtained at 2043 hours. A single portable AP radiograph of the chest was obtained. The heart is normal in size. The mediastinal silhouette is normal. The lungs are clear. There are no effusions or infiltrates. There is no pleural thickening. Arthritic changes of the spine and shoulders are present. IMPRESSION: No acute process. Report Dictated on Final Dictating Physician: DO ARIZMENDI ALFRED Signed Date and Time: 05/30/2017 9:11 pm Signed by: DO ARIZMENDI ALFRED Transcribed Date and Time: 05/30/2017 9:12 URINALYSIS, ROUTINE Collected: 05/30/2017 Status: F Source: MARCIO (DIPSTICK) 4:31 PM [facility] REPOSITORY Order Comment: How was Urine Obtained? CLEAN CATCH TYPE CODE TESTS RESULT OUT OF RANGE REFERENCE UNITS LAB L400.3000 Yellow COLOR Normal Yellow LAB L400.3050 Clear Normal CLARITY Clear LAB L400.3200 Normal mg/dl Normal GLUCOSE, UR Normal LAB L400.3300 Negative mg/dL Normal BILIRUBIN URINE Negative LAB L400.3400 Negative mg/dl Normal KETONE UR Negative LAB L400.3465 1.002-1.030 Normal SP.GR. DIPSTX 1.010 LAB L400.3550 5.0 - 8.0 pH UR Normal 7.0 LAB L400.3600 Negative mg/dl PROT Normal DIPSTX Negative LAB L400.3700 Normal mg/dl Normal UROBILI Normal LAB L400.3750 Negative Normal NITRITE UR Negative LAB L400.3780 Negative /ul High 10 OCCULT BLOOD-UR LAB L400.3800 Negative /ul LEUK Normal ESTERASE Negative Performed By: #### L400.2010 #### [facility] Laboratory [address] [place], [place], [address] CBC-COMPLETE BLOOD CNT Collected: 05/30/2017 Status: F Source: MARCIO NO DIFF 4:31 PM [facility] REPOSITORY TYPE CODE TESTS RESULT OUT OF RANGE REFERENCE UNITS LAB L100.1000 4.4-11.0 K/mm3 Normal WBC 5.7 LAB L100.1200 4.2-5.4 M/mm3 Low RBC 4.11 LAB L100.1300 12.0-15.0 g/dl Low HGB 11.5 LAB L100.1400 37-47 % Low HCT 36.2 LAB L100.1500 81-99 fL Normal MCV 88.1 LAB L100.1600 27.0-32.0 pg Normal MCH 28.0 LAB L100.1700 32-36 g/gl Low MCHC 31.8 LAB L100.1810 11.6-14.6 % Normal RDW CV 13.7 LAB L100.1820 35.1-43.9 fl Normal RDW SD 43.7 LAB L100.1900 150-450 K/mm3 Normal PLT 228 LAB L100.2000 6.2-12.0 fl Normal MPV 10.1 Performed By: #### L100.0500 #### [facility] [address] [facility] [address] [place], [place], [address] BASIC METABOLIC Collected: 05/30/2017 Status: F Source: MARCIO PROFILE (BMP) 4:31 PM [facility] REPOSITORY TYPE CODE TESTS RESULT OUT OF RANGE REFERENCE UNITS LAB L501.0100 74-106 mg/dL High GLU 112 Result Comment: Fasting Glucose result from 100 to 125 mg/dL suggests IMPAIRED HOMEOSTASIS per A.D.A. criteria. Please note revised GLUCOSE reference range effective 2017. LAB L501.1000 7-18 mg/dL High BUN 20 LAB L501.1100 0.55-1.02 mg/dL Low CREAT,SERUM 0.31 Result Comment: The validity of the calculated GFR AND GFRAA in patients over 70 years has not been determined. Clinical correlation is essential. LAB L501.1110 >60 mL/min Normal EST GFR 229 Result Comment: Non- GFR Calc LAB L501.1115 >60 mL/min Normal EST GFR - AA 277 Result Comment: GFR Calc LAB L501.1300 10-20 RATIO High BUN/CRE 64.7 LAB L501.2200 8.5-10.1 mg/dL CA Normal 8.7 LAB L501.5300 136-145 mmol/L NA Normal 136 LAB L501.5600 3.5-5.1 mmol/L K Normal 4.8 LAB L501.5900 98-107 mmol/L CL Normal 102 LAB L501.6100 21.0-32.0 mmol/L Normal CO2 27.0 LAB L501.6200 5-15 Normal GAP 7 Performed By: #### L500.2500 #### [facility] [address] [place], [place], [address] Observed: 05/30/2017 Status: F Source: MARCIO CULTURE, URINE 4:31 PM [facility] REPOSITORY Urine Culture Culture exhibits no growth. Performed By: #### M100.0650 #### [facility] [address] [place], [address] Observed: 05/05/2017 Status: F Source: MARCIO CULTURE, URINE 1:30 AM [facility] REPOSITORY Urine Culture ORGANISM 1: Presumptive E. coli [place] Count >100,000 Presumptive E. coli: REACTION Amoxacillin/Clavulanic Acid $ <=2 S Ampicillin $ 4 S Ampicillin/Sulbactam $ 4 S Cefazolin $ <=4 S Cefepime $ <=1 S Ceftriaxone $ <=1 S Ciprofloxacin $ >=4 R ESBL - Ertapenim $$$ <=0.5 S Gentamicin $ <=1 S Imipenem *NF <=0.25 S Levofloxacin $ >=8 R Nitrofurantoin $ 64 I Piperacillin/Tazobactam $$ <=4 S Tobramycin $ <=1 S Trimethoprim/Sulfametho $ >=320 R (NF) indicates non-formulary drug at [facility]. Approval by Infectious Disease Specialist required before non-formulary drugs may be ordered and/or dispensed. Performed By: #### M100.0650 #### [facility] [address] [place], [address] ALLERGIES ALLERGIES DATE TYPE / NAME / CODE REACTION SEVERITY SOURCE CODE 06/13/2016 DRUG CIPROFLOXACIN GI UPSET [facility]41 Clinic Other [id number]([facility] O[facility] CT) Repository 06/13/2016 [facility]UG [facility] [address] Other [id number]([facility]) Repository 01/13/2008 DRUG/86954 METHYLPREDNISOLONE [facility] 1003(SNOME SODIUM SUCC Clinic Other D CT) [place] Repository 02/10/2005 DRUG CODEINE [place] [address] Clinic Other [id number]([facility] O[facility] CT) Repository 02/10/2005 Drug PENICILLINS [place] Class/4195 Clinic Other [address]([facility] [place] ED CT) Repository NG/5394519 CIPROFLOXACIN [facility] 06([facility]) Repository NG/8244504 CODEINE [facility] 06([facility]) Repository NG/5224414 FLUOXETINE HCL [facility] 06([facility]OM[facility]) Repository NG/8394211 PENICILLINS [facility] 06(SNOMED [facility]) Repository NG/0344705 METHYLPREDNISOLONE [facility] 06(SNOMED SODIUM SUCC Health System CT) Repository ENCOUNTERS ENCOUNTERS ADMIT/DISCHARGE ACCOUNT NUMBER ADMITTING ENCOUNTER LOCATION SOURCE CLASS 03/25/2018 [id number] [facility] ding:OLS.ACH Repository 02/26/2018 [id number] [facility] ding:OLS.ACH Repository 01/16/2018 [id number] [facility] ding:OLS.ACH Repository 12/17/2017 [id number] [facility] ding:OLS.ACH Repository 12/13/2017/12/14/19 [id number] WHITE, Ambulatory [place] 18 DEANN A Clinic Other [place] Repository 12/13/2017/12/14/19 [id number] CHAPIN, Inpatient [facility] 18 DILIA D Encounter [facility] MEDICAL Repository CENTERBuildi ng:AKIRRoom: POOLBed: 05 09/19/2017 [id number] [facility] ding:OLS.ACH Repository 09/17/2017 [id number] [facility] ding:OLS.ACH Repository 08/24/2017 [id number] [facility] ding:OLS.ACH Repository 06/18/2017 [id number] [facility] ding:OLS.ACH Repository 05/30/2017 [id number] [place] [address] EDRoom: System 444Bed: Repository [id number] 05/30/2017 [id number] [facility] ding:OLS.ACH Repository 05/05/2017 [id number] [facility] ding:OLS.ACH Repository PAYERS PAYERS ENCOUNTER GUARANTOR PAYER SUBSCRIBER SOURCE 03/25/2018 Aditi A Primary Insurance:SELF NOT GIVENUNK [place] [id number] PAY [facility] Number: Effective Hospital RDAPOSTOLIC Date:2018-03-25 Repository [place], [place] [address]Pyu: () 02/26/2018 Aditi A Primary Aditi A Marcio [id number] Insurance:[facility] SefluthDOB: [facility] *IN [facility] [id number] Hospital RDAPOSTOLIC Number: Repository [id number] Date:5577-00-04NM [address] [address]Mow: [phone] [address], [place] [phone] () [phone]: 02/26/2018 Secondary NOT GIVENUNK [place] Insurance:SELF PAY [facility] Number: Effective Repository Date:2018-02-26 01/16/2018 Aditi A Primary Insurance:SELF NOT GIVENUNK [place] [id number] PAY [facility] Number: Effective Hospital RDAPOSTOLIC Date:2018-01-16 Repository [place], [place] [address]Yfv: (HP) 12/17/2017 Aditi A Primary Aditi A [place] [id number] Insurance:[facility] SefluthDOB: Community VIC *IN [facility] [id number] Hospital RDAPOSTOLIC Number: Repository [place] [id number] Date:5312-90-78IQ [address] [address]Hnj: [phone] [address], [place] [phone] () [phone]: 12/17/2017 Secondary NOT GIVENUNK [place] Insurance:SELF PAY [facility] Number: Effective Repository Date:2017-12-17 12/13/2017 ADITI A Primary ADITI A [facility] SEFLUTHDOB: Insurance:[facility] SEFLUTHDOB: [facility] System [id number] MEDICAREPolicy Number: [id number] Repository VIC [id number] [place] Date: [address]Lqz: () 12/13/2017 Secondary ADITI A [facility] Insurance:[facility] SEFLUTHDOB: Health System MEDICAIDPolicy Number: [id number] Repository [id number] Date: 09/19/2017 Aditi A Primary Aditi A [place] [id number] Insurance:[facility] SefluthDOB: [facility] [id number] Hospital RDAPOSTOLIC Number: Repository [place] [id number], [place] Date:6470-77-78NK [address] [address]Pbe: [phone] [address], [place] [phone] () [phone]: 09/19/2017 Secondary NOT GIVENUNK [place] Insurance:SELF PAY [facility] Number: Effective Repository Date:2017-09-19 09/17/2017 Aditi A Primary Aditi A Marcio [id number] Insurance:[facility] SefluthDOB: Community [facility] *IN [facility] [id number] Hospital RDAPOSTOLIC Number: Repository [place] [id number] [facility] [place] Date:2393-07-29WB [address] [address]Zvx: [phone] [address], [place] [phone] () [phone]: 09/17/2017 Secondary NOT GIVENUNK Marcio Insurance:SELF PAY [facility] Number: Effective Repository Date:2017-09-17 08/24/2017 Aditi A Primary Aditi A [place] [id number] Insurance:[facility] SefluthDOB: Community [facility] *IN [facility] [id number] Hospital RDAPOSTOLIC Number: Repository [place] [id number] [place] Date:4558-93-49KO [address] [address]Ooi: [phone]) [address], [place] [phone] () [phone]: 08/24/2017 Secondary NOT GIVENUNK Marcio Insurance:SELF PAY [facility] Number: Effective Repository Date:2017-08-24 06/18/2017 Aditi A Primary Aditi A [place] [id number] Insurance:[facility] SefluthDOB: Community [facility]IC *IN [facility] [id number] Hospital RDAPOSTOLIC Number: Repository [place] [id number] Date:3741-81-75KR [address] [address]Dpe: [phone]) [address], [place] [phone] () [phone]: 06/18/2017 Secondary NOT GIVENUNK Marcio Insurance:SELF PAY [facility] Number: Effective Repository Date:2017-06-18 05/30/2017 Aditi A Primary Aditi A [facility] SefluthDOB: Insurance:[facility] SefluthDOB: System [id number] [facility] [id number] Repository Vic Number: Effective [place], [place] Date: [address]Yaa: () 05/30/2017 Secondary Aditi A [facility] Insurance:[facility] SefluthDOB: [facility] [id number] Repository Number: Effective Date: 05/30/2017 Aditi A Primary Aditi A Marcio [id number] Insurance:[facility] SefluthDOB: [facility] [id number] Hospital RDAPOSTOLIC Number: Repository [place]TH[place] [id number] [place] Date:0477-25-26VK [address] [address]Nuu: [phone]) [address], [place] [phone] () [phone]: 05/30/2017 Secondary NOT GIVENUNK [place] Insurance:SELF PAY [facility] Number: Effective Repository Date:2017-05-30 05/05/2017 Aditi A Primary Insurance:SELF NOT GIVENUNK Marcio [id number] [facility] Number: Effective Hospital RDAPOSTOLIC Date:2017-05-05 Repository [address] [place], [place] [address]Gex: ()
== END ==
LOC: OLS.ACH 17:00
PROVIDERS: Visit Provider Family Medicine
DX: R32 Unspecified urinary incontinence (principal)
CPT/HCPCS: 87077; 87086; 87088; 87186

== ENCOUNTER → 2018-03-25 04:00 | Outpatient (REF) | payer MEDICARE, SELFPAY ==
[2018-03-25 08:12] LABS: Absolute Lymphocyte Count 0.77 X10^3/ul (0.83-4.51); Absolute Neutrophil Count 2.8 X10^3/uL (2.0-7.7); Basophil# 0.02 X10^3/uL; Basophil% 0.5 % (0-1); Eosinophil# 0.11 X10^3/uL; Eosinophils% 2.5 % (0-5); Hematocrit 32.4 % (37-47); Hemoglobin 10.3 g/dl (12.0-15.0); Lymphocyte # 0.77 X10^3/ul (4.0); Lymphocyte % 17.5 % (19-41); Mean Corp Hgb Conc 31.8 g/gl (32-36); Mean Corpuscular Hgb 28.3 pg (27.0-32.0); Mean Platelet Vol. 9.8 fl (6.2-12.0); Monocyte# 0.65 X10^3/uL; Monocyte% 14.7 % (0-10); Neutrophil # 2.84 X10^3/uL (2.7-7.7); Neutrophil % 64.3 % (47-70); Platelet Count 173 K/mm3 (150-450); RBC Distribution Width CV 14.1 % (11.6-14.6); RBC Distribution Width SD 44.8 fl (35.1-43.9); Red Blood Count 3.64 M/mm3 (4.2-5.4); White Blood Count 4.4 K/mm3 (4.4-11.0)
[2018-03-25 08:19] LABS: POSITIVE COUNT NO; POSITIVE DIFFERENTIAL NO; POSITIVE MORPHOLOGY NO
[2018-03-25 08:24] LABS: AST(SGOT) 13 U/L (15-37); Alanine Aminotransfer ALT/SGPT 17 U/L (13-56); Albumin, Serum 3.2 g/dL (3.2-5.0); Alkaline Phosphatase 60 U/L (45-117); Anion Gap 9 (5-15); BUN 15 mg/dL (7-18); BUN/Creat Ratio 48.7 RATIO (10-20); Calcium,Total 8.4 mg/dL (8.5-10.1); Chloride 103 mmol/L (98-107); Creatinine, Serum 0.31 mg/dL (0.55-1.02); EST Glomerular Filtration Rate 229 mL/min (>60); Est Glom Filt Rate - Afr Amer 278 mL/min (>60); Globulin 3.1 g/dL (2.2-4.2); Glucose 86 mg/dL (74-106); Potassium 4.3 mmol/L (3.5-5.1); Protein, Total 6.3 g/dL (6.4-8.2); Sodium Level 137 mmol/L (136-145)
== END ==
LOC: OLS.ACH 04:00
PROVIDERS: Visit Provider Family Medicine
DX: I35.1 Nonrheumatic aortic (valve) insufficiency (principal)
CPT/HCPCS: 36415; 80053; 85025

== ENCOUNTER → 2018-04-30 11:55 | Outpatient (REF) | payer MEDICARE, SELFPAY ==
[2018-04-30 12:35] LABS: Hematocrit 34.9 % (37-47); Hemoglobin 11.3 g/dl (12.0-15.0); Mean Corp Hgb Conc 32.4 g/gl (32-36); Mean Corpuscular Hgb 28.8 pg (27.0-32.0); Mean Corpuscular Volume 88.8 fL (81-99); Mean Platelet Vol. 9.9 fl (6.2-12.0); Platelet Count 182 K/mm3 (150-450); RBC Distribution Width CV 13.7 % (11.6-14.6); RBC Distribution Width SD 44.9 fl (35.1-43.9); Red Blood Count 3.93 M/mm3 (4.2-5.4); White Blood Count 13.9 K/mm3 (4.4-11.0)
[2018-04-30 12:36] LABS: Scan Indicated on CBC? Y/N NO
[2018-04-30 12:59] LABS: Anion Gap 11 (5-15); BUN 13 mg/dL (7-18); BUN/Creat Ratio 33.1 RATIO (10-20); Calcium,Total 8.8 mg/dL (8.5-10.1); Chloride 98 mmol/L (98-107); Creatinine, Serum 0.39 mg/dL (0.55-1.02); EST Glomerular Filtration Rate 173 mL/min (>60); Est Glom Filt Rate - Afr Amer 210 mL/min (>60); Glucose 94 mg/dL (74-106); Potassium 4.1 mmol/L (3.5-5.1); Sodium Level 134 mmol/L (136-145)
== END ==
LOC: OLS.ACH 11:55
PROVIDERS: Visit Provider Family Medicine
DX: M62.81 Muscle weakness (generalized) (principal); R00.0 Tachycardia, unspecified; R53.83 Other fatigue
CPT/HCPCS: 36415; 80048; 85027; 87804

== ENCOUNTER → 2018-06-17 04:00 | Outpatient (REF) | payer MEDICARE, SELFPAY ==
[2018-06-17 06:36] LABS: Absolute Neutrophil Count 4.8 X10^3/uL (2.0-7.7); Basophil# 0.02 X10^3/uL; Basophil% 0.3 % (0-1); Eosinophils% 2.9 % (0-5); Hematocrit 33.4 % (37-47); Hemoglobin 10.9 g/dl (12.0-15.0); Mean Corp Hgb Conc 32.6 g/gl (32-36); Mean Corpuscular Hgb 28.8 pg (27.0-32.0); Mean Corpuscular Volume 88.4 fL (81-99); Mean Platelet Vol. 9.3 fl (6.2-12.0); Monocyte# 0.68 X10^3/uL; Monocyte% 9.9 % (0-10); Neutrophil # 4.84 X10^3/uL (2.7-7.7); Neutrophil % 70.6 % (47-70); Platelet Count 188 K/mm3 (150-450); RBC Distribution Width CV 13.3 % (11.6-14.6); RBC Distribution Width SD 42.8 fl (35.1-43.9); Red Blood Count 3.78 M/mm3 (4.2-5.4); White Blood Count 6.9 K/mm3 (4.4-11.0)
[2018-06-17 06:45] LABS: POSITIVE COUNT NO; POSITIVE DIFFERENTIAL NO; POSITIVE MORPHOLOGY NO
[2018-06-17 06:51] LABS: ALB/GLOB Ratio 0.9 RATIO (0.9-2.4); AST(SGOT) 13 U/L (15-37); Alanine Aminotransfer ALT/SGPT 16 U/L (13-56); Albumin, Serum 3.3 g/dL (3.2-5.0); Alkaline Phosphatase 81 U/L (45-117); Anion Gap 8 (5-15); BUN 17 mg/dL (7-18); BUN/Creat Ratio 37.1 RATIO (10-20); Calcium,Total 8.5 mg/dL (8.5-10.1); Chloride 103 mmol/L (98-107); Creatinine, Serum 0.46 mg/dL (0.55-1.02); EST Glomerular Filtration Rate 145 mL/min (>60); Est Glom Filt Rate - Afr Amer 176 mL/min (>60); Globulin 3.5 g/dL (2.2-4.2); Glucose 89 mg/dL (74-106); Potassium 4.4 mmol/L (3.5-5.1); Protein, Total 6.8 g/dL (6.4-8.2); Sodium Level 136 mmol/L (136-145)
== END ==
LOC: OLS.ACH 04:00
PROVIDERS: Visit Provider Family Medicine
DX: I35.1 Nonrheumatic aortic (valve) insufficiency (principal)
CPT/HCPCS: 36415; 80053; 85025

== ENCOUNTER → 2018-08-16 | Outpatient (REF) | payer MEDICARE, SELFPAY ==
[2018-08-16 07:45] LABS: Erythrocyte Sedimentation Rate 8 mm/hr (0-30)
[2018-08-16 07:46] LABS: ALB/GLOB Ratio 0.9 RATIO (0.9-2.4); AST(SGOT) 10 U/L (15-37); Absolute Lymphocyte Count 1.03 X10^3/ul (0.83-4.51); Absolute Neutrophil Count 4.1 X10^3/uL (2.0-7.7); Alanine Aminotransfer ALT/SGPT 14 U/L (13-56); Albumin, Serum 3.2 g/dL (3.2-5.0); Alkaline Phosphatase 122 U/L (45-117); Anion Gap 3 (5-15); BUN 14 mg/dL (7-18); BUN/Creat Ratio 34.6 RATIO (10-20); Basophil# 0.02 X10^3/uL; Basophil% 0.3 % (0-1); Calcium,Total 8.5 mg/dL (8.5-10.1); Chloride 99 mmol/L (98-107); EST Glomerular Filtration Rate 167 mL/min (>60); Eosinophil# 0.22 X10^3/uL; Eosinophils% 3.6 % (0-5); Est Glom Filt Rate - Afr Amer 202 mL/min (>60); Globulin 3.5 g/dL (2.2-4.2); Glucose 87 mg/dL (74-106); Hematocrit 32.8 % (37-47); Hemoglobin 10.8 g/dl (12.0-15.0); Lymphocyte # 1.03 X10^3/ul (4.0); Mean Corp Hgb Conc 32.9 g/gl (32-36); Mean Corpuscular Hgb 28.7 pg (27.0-32.0); Mean Corpuscular Volume 87.2 fL (81-99); Mean Platelet Vol. 9.1 fl (6.2-12.0); Monocyte# 0.63 X10^3/uL; Monocyte% 10.4 % (0-10); Neutrophil # 4.14 X10^3/uL (2.7-7.7); Neutrophil % 68.4 % (47-70); Platelet Count 190 K/mm3 (150-450); Potassium 4.3 mmol/L (3.5-5.1); Protein, Total 6.7 g/dL (6.4-8.2); RBC Distribution Width CV 12.8 % (11.6-14.6); RBC Distribution Width SD 39.7 fl (35.1-43.9); Red Blood Count 3.76 M/mm3 (4.2-5.4); Sodium Level 130 mmol/L (136-145); White Blood Count 6.1 K/mm3 (4.4-11.0)
[2018-08-16 07:54] LABS: POSITIVE COUNT NO; POSITIVE DIFFERENTIAL NO; POSITIVE MORPHOLOGY NO
== END | disposition home or self-care (01) ==
LOC: OLS.ACH 06:46
PROVIDERS: Visit Provider Family Medicine
DX: I35.1 Nonrheumatic aortic (valve) insufficiency (principal)
CPT/HCPCS: 36415; 80053; 85025; 85652

== ENCOUNTER → 2018-08-20 | Outpatient (REF) | payer MEDICARE, SELFPAY ==
[2018-08-20 07:24] LABS: Anion Gap 4 (5-15); BUN 17 mg/dL (7-18); BUN/Creat Ratio 42.7 RATIO (10-20); Calcium,Total 8.3 mg/dL (8.5-10.1); Chloride 100 mmol/L (98-107); EST Glomerular Filtration Rate 171 mL/min (>60); Est Glom Filt Rate - Afr Amer 206 mL/min (>60); Glucose 93 mg/dL (74-106); Potassium 4.3 mmol/L (3.5-5.1); Sodium Level 130 mmol/L (136-145)
== END | disposition home or self-care (01) ==
LOC: OLS.ACH 05:00
PROVIDERS: Visit Provider Family Medicine
DX: G35 Multiple sclerosis (principal)
CPT/HCPCS: 36415; 80048

== ENCOUNTER → 2018-09-16 04:00 | Outpatient (REF) | payer MEDICARE, SELFPAY ==
[2018-09-16 07:49] LABS: Absolute Lymphocyte Count 1.26 X10^3/ul (0.83-4.51); Absolute Neutrophil Count 7.3 X10^3/uL (2.0-7.7); Basophil# 0.02 X10^3/uL; Basophil% 0.2 % (0-1); Eosinophil# 0.18 X10^3/uL; Eosinophils% 1.9 % (0-5); Hematocrit 31.5 % (37-47); Hemoglobin 10.1 g/dl (12.0-15.0); Lymphocyte # 1.26 X10^3/ul (4.0); Lymphocyte % 13.2 % (19-41); Mean Corp Hgb Conc 32.1 g/gl (32-36); Mean Corpuscular Hgb 28.5 pg (27.0-32.0); Mean Corpuscular Volume 88.7 fL (81-99); Mean Platelet Vol. 9.4 fl (6.2-12.0); Monocyte# 0.73 X10^3/uL; Monocyte% 7.7 % (0-10); Neutrophil # 7.29 X10^3/uL (2.7-7.7); Neutrophil % 76.6 % (47-70); Platelet Count 226 K/mm3 (150-450); RBC Distribution Width SD 41.8 fl (35.1-43.9); Red Blood Count 3.55 M/mm3 (4.2-5.4); White Blood Count 9.5 K/mm3 (4.4-11.0)
[2018-09-16 07:52] LABS: ALB/GLOB Ratio 0.9 RATIO (0.9-2.4); AST(SGOT) 10 U/L (15-37); Alanine Aminotransfer ALT/SGPT 14 U/L (13-56); Alkaline Phosphatase 85 U/L (45-117); Anion Gap 5 (5-15); BUN 13 mg/dL (7-18); BUN/Creat Ratio 31.1 RATIO (10-20); Calcium,Total 8.4 mg/dL (8.5-10.1); Chloride 102 mmol/L (98-107); Creatinine, Serum 0.42 mg/dL (0.55-1.02); EST Glomerular Filtration Rate 161 mL/min (>60); Est Glom Filt Rate - Afr Amer 195 mL/min (>60); Globulin 3.3 g/dL (2.2-4.2); Glucose 87 mg/dL (74-106); Potassium 4.3 mmol/L (3.5-5.1); Protein, Total 6.3 g/dL (6.4-8.2); Sodium Level 134 mmol/L (136-145)
[2018-09-16 08:04] LABS: POSITIVE COUNT NO; POSITIVE DIFFERENTIAL NO; POSITIVE MORPHOLOGY NO
== END ==
LOC: OLS.ACH 04:00
PROVIDERS: Visit Provider Family Medicine
DX: I35.1 Nonrheumatic aortic (valve) insufficiency (principal)
CPT/HCPCS: 36415; 80053; 85025

== ENCOUNTER → 2018-09-18 05:00 | Outpatient (REF) | payer MEDICARE, SELFPAY ==
[2018-09-18 09:19] LABS: Vitamin B12 1022 pg/mL (211-911)
[2018-09-18 09:42] LABS: Ferritin 18 ng/mL (8-252); Iron 44 ug/dL (50-170); Iron Binding Capacity,Total 269 ug/dL (250-450); PERCENT IRON SATURATION 16.4 % (15.0-55.0)
[2018-09-19 17:16] LABS: PROEL- A/G Ratio 1.1 (0.7-1.7); PROEL- Albumin 3.3 g/dL (2.9-4.4); PROEL- Alpha-1 Globulin 0.2 g/dL (0.0-0.4); PROEL- Alpha-2 Globulin 0.7 g/dL (0.4-1.0); PROEL- TOTAL PROTEIN 6.3 g/dL (6.0-8.5)
== END ==
LOC: OLS.ACH 05:00
PROVIDERS: Visit Provider Family Medicine
DX: D64.9 Anemia, unspecified (principal)
CPT/HCPCS: 36415; 82607; 82728; 82746; 83540; 83550; 84165

== ENCOUNTER → 2018-10-30 05:00 | Outpatient (REF) | payer MEDICARE, SELFPAY ==
[2018-10-30 09:01] LABS: Absolute Lymphocyte Count 1.37 X10^3/uL (0.83-4.51); Absolute Neutrophil Count 5.8 X10^3/uL (2.0-7.7); Basophil# 0.02 X10^3/uL; Basophil% 0.2 % (0-1); Eosinophils% 2.5 % (0-5); Hematocrit 33.5 % (37-47); Hemoglobin 10.9 g/dL (12.0-15.0); Lymphocyte # 1.37 X10^3/ul (4.0); Mean Corp Hgb Conc 32.5 g/dL (32-36); Mean Corpuscular Hgb 28.5 pg (27.0-32.0); Mean Corpuscular Volume 87.7 fL (81-99); Mean Platelet Vol. 9.4 fl (6.2-12.0); Monocyte# 0.65 X10^3/uL; Monocyte% 8.1 % (0-10); NRBC Flagged by Analyzer 0 % (0-5); Neutrophil # 5.79 X10^3/uL (2.7-7.7); Neutrophil % 71.7 % (47-70); Platelet Count 245 K/mm3 (150-450); RBC Distribution Width CV 12.6 % (11.6-14.6); RBC Distribution Width SD 40.2 fl (35.1-43.9); Red Blood Count 3.82 M/mm3 (4.2-5.4); White Blood Count 8.1 K/mm3 (4.4-11.0)
[2018-10-30 09:20] LABS: Vitamin B12 1373 pg/mL (211-911)
[2018-10-30 09:50] LABS: ALB/GLOB Ratio 0.9 RATIO (0.9-2.4); AST(SGOT) 9 U/L (15-37); Alanine Aminotransfer ALT/SGPT 14 U/L (13-56); Albumin, Serum 3.3 g/dL (3.2-5.0); Alkaline Phosphatase 92 U/L (45-117); Anion Gap 8 (5-15); BUN 11 mg/dL (7-18); BUN/Creat Ratio 30.6 RATIO (10-20); Calcium,Total 8.7 mg/dL (8.5-10.1); Chloride 97 mmol/L (98-107); Cholesterol 174 mg/dL (200); Creatinine, Serum 0.36 mg/dL (0.55-1.02); EST Glomerular Filtration Rate 192 mL/min (>60); Est Glom Filt Rate - Afr Amer 232 mL/min (>60); Ferritin 26 ng/mL (8-252); Globulin 3.5 g/dL (2.2-4.2); Glucose 81 mg/dL (74-106); High Density Lipoprotein 45 mg/dL; Iron 46 ug/dL (50-170); Iron Binding Capacity,Total 275 ug/dL (250-450); PERCENT IRON SATURATION 16.7 % (15.0-55.0); Potassium 4.3 mmol/L (3.5-5.1); Protein, Total 6.8 g/dL (6.4-8.2); Sodium Level 132 mmol/L (136-145); Triglycerides 104 mg/dL; Very Low Density Lipoprotein 21 mg/dL (5-40)
== END ==
LOC: OLS.ACH 05:00
PROVIDERS: Visit Provider Family Medicine
DX: D64.9 Anemia, unspecified (principal); K59.2 Neurogenic bowel, not elsewhere classified; R53.83 Other fatigue; Z79.899 Other long term (current) drug therapy; Z87.311 Personal history of (healed) other pathological fracture
CPT/HCPCS: 36415; 80053; 80061; 82607; 82728; 82746; 83540; 83550; 85025

== ENCOUNTER → 2018-12-23 04:00 | Outpatient (REF) | payer MEDICARE, SELFPAY ==
[2018-12-23 08:11] LABS: Absolute Lymphocyte Count 1.07 X10^3/uL (0.83-4.51); Absolute Neutrophil Count 8.6 X10^3/uL (2.0-7.7); Basophil# 0.03 X10^3/uL; Basophil% 0.3 % (0-1); Eosinophil# 0.14 X10^3/uL; Eosinophils% 1.3 % (0-5); Hematocrit 35.3 % (37-47); Hemoglobin 11.4 g/dL (12.0-15.0); Lymphocyte # 1.07 X10^3/ul (4.0); Lymphocyte % 10.1 % (19-41); Mean Corp Hgb Conc 32.3 g/dL (32-36); Mean Corpuscular Hgb 28.7 pg (27.0-32.0); Mean Corpuscular Volume 88.9 fL (81-99); Mean Platelet Vol. 9.5 fl (6.2-12.0); Monocyte% 7.5 % (0-10); NRBC Flagged by Analyzer 0 % (0-5); Neutrophil # 8.55 X10^3/uL (2.7-7.7); Neutrophil % 80.3 % (47-70); Platelet Count 234 K/mm3 (150-450); RBC Distribution Width CV 13.3 % (11.6-14.6); RBC Distribution Width SD 43.3 fl (35.1-43.9); Red Blood Count 3.97 M/mm3 (4.2-5.4); White Blood Count 10.6 K/mm3 (4.4-11.0)
[2018-12-23 08:32] LABS: ALB/GLOB Ratio 1.1 RATIO (0.9-2.4); AST(SGOT) 11 U/L (15-37); Alanine Aminotransfer ALT/SGPT 14 U/L (13-56); Albumin, Serum 3.4 g/dL (3.2-5.0); Alkaline Phosphatase 104 U/L (45-117); Anion Gap 8 (5-15); BUN 11 mg/dL (7-18); BUN/Creat Ratio 34.1 RATIO (10-20); Calcium,Total 8.6 mg/dL (8.5-10.1); Chloride 99 mmol/L (98-107); Creatinine, Serum 0.32 mg/dL (0.55-1.02); EST Glomerular Filtration Rate 217 mL/min (>60); Est Glom Filt Rate - Afr Amer 262 mL/min (>60); Globulin 3.1 g/dL (2.2-4.2); Glucose 78 mg/dL (74-106); Potassium 4.4 mmol/L (3.5-5.1); Protein, Total 6.5 g/dL (6.4-8.2); Sodium Level 135 mmol/L (136-145)
== END ==
LOC: OLS.ACH 04:00
PROVIDERS: Visit Provider Family Medicine
DX: I35.1 Nonrheumatic aortic (valve) insufficiency (principal)
CPT/HCPCS: 36415; 80053; 85025

== ENCOUNTER → 2019-01-06 05:00 | Outpatient (REF) | payer MEDICARE, SELFPAY ==
[2019-01-06 07:52] LABS: Hematocrit 37.1 % (37-47); Hemoglobin 11.9 g/dL (12.0-15.0); Mean Corp Hgb Conc 32.1 g/dL (32-36); Mean Corpuscular Hgb 28.6 pg (27.0-32.0); Mean Corpuscular Volume 89.2 fL (81-99); Mean Platelet Vol. 9.5 fl (6.2-12.0); Platelet Count 281 K/mm3 (150-450); RBC Distribution Width CV 13.2 % (11.6-14.6); RBC Distribution Width SD 43.2 fl (35.1-43.9); Red Blood Count 4.16 M/mm3 (4.2-5.4); White Blood Count 7.6 K/mm3 (4.4-11.0)
[2019-01-06 08:18] LABS: Ferritin 41 ng/mL (8-252); Iron 50 ug/dL (50-170)
== END ==
LOC: OLS.ACH 05:00
PROVIDERS: Visit Provider Family Medicine
DX: R53.81 Other malaise (principal); Z86.718 Personal history of other venous thrombosis and embolism; D50.9 Iron deficiency anemia, unspecified
CPT/HCPCS: 36415; 82728; 83540; 85027

== ENCOUNTER → 2019-02-03 05:00 | Outpatient (REF) | payer MEDICARE, SELFPAY ==
[2019-02-03 07:22] LABS: Absolute Neutrophil Count 6.3 X10^3/uL (2.0-7.7); Basophil# 0.03 X10^3/uL; Basophil% 0.3 % (0-1); Eosinophil# 0.18 X10^3/uL; Hematocrit 35.2 % (37-47); Hemoglobin 11.4 g/dL (12.0-15.0); Lymphocyte % 16.9 % (19-41); Mean Corp Hgb Conc 32.4 g/dL (32-36); Mean Corpuscular Hgb 28.9 pg (27.0-32.0); Mean Corpuscular Volume 89.3 fL (81-99); Mean Platelet Vol. 9.1 fl (6.2-12.0); Monocyte# 0.79 X10^3/uL; Monocyte% 8.9 % (0-10); NRBC Flagged by Analyzer 0 % (0-5); Neutrophil # 6.31 X10^3/uL (2.7-7.7); Neutrophil % 71.2 % (47-70); Platelet Count 284 K/mm3 (150-450); RBC Distribution Width CV 12.6 % (11.6-14.6); RBC Distribution Width SD 41.2 fl (35.1-43.9); Red Blood Count 3.94 M/mm3 (4.2-5.4); White Blood Count 8.9 K/mm3 (4.4-11.0)
[2019-02-03 07:40] LABS: Ferritin 44 ng/mL (8-252); Iron 47 ug/dL (50-170)
== END ==
LOC: OLS.ACH 05:00
PROVIDERS: Visit Provider Family Medicine
DX: D64.9 Anemia, unspecified (principal)
CPT/HCPCS: 36415; 82728; 83540; 85025

== ENCOUNTER → 2019-03-24 05:00 | Outpatient (REF) | payer MEDICARE, MEDICAID, SELFPAY ==
[2019-03-24 07:29] LABS: Absolute Lymphocyte Count 1.65 X10^3/uL (0.83-4.51); Absolute Neutrophil Count 6.3 X10^3/uL (2.0-7.7); Basophil# 0.03 X10^3/uL; Basophil% 0.3 % (0-1); Eosinophil# 0.19 X10^3/uL; Eosinophils% 2.1 % (0-5); Hematocrit 33.8 % (37-47); Hemoglobin 11.2 g/dL (12.0-15.0); Lymphocyte # 1.65 X10^3/ul (4.0); Lymphocyte % 18.3 % (19-41); Mean Corp Hgb Conc 33.1 g/dL (32-36); Mean Corpuscular Hgb 29.1 pg (27.0-32.0); Mean Corpuscular Volume 87.8 fL (81-99); Mean Platelet Vol. 9.3 fl (6.2-12.0); Monocyte# 0.75 X10^3/uL; Monocyte% 8.3 % (0-10); NRBC Flagged by Analyzer 0 % (0-5); Neutrophil # 6.34 X10^3/uL (2.7-7.7); Neutrophil % 70.2 % (47-70); Platelet Count 318 K/mm3 (150-450); RBC Distribution Width CV 12.6 % (11.6-14.6); RBC Distribution Width SD 39.8 fl (35.1-43.9); Red Blood Count 3.85 M/mm3 (4.2-5.4)
[2019-03-24 07:37] LABS: AST(SGOT) 12 U/L (15-37); Alanine Aminotransfer ALT/SGPT 16 U/L (13-56); Albumin, Serum 3.2 g/dL (3.2-5.0); Alkaline Phosphatase 93 U/L (45-117); Anion Gap 7 (5-15); BUN 11 mg/dL (7-18); BUN/Creat Ratio 34.8 RATIO (10-20); Calcium,Total 8.6 mg/dL (8.5-10.1); Chloride 99 mmol/L (98-107); Creatinine, Serum 0.32 mg/dL (0.55-1.02); EST Glomerular Filtration Rate 222 mL/min (>60); Est Glom Filt Rate - Afr Amer 269 mL/min (>60); Globulin 3.2 g/dL (2.2-4.2); Glucose 85 mg/dL (74-106); Potassium 4.5 mmol/L (3.5-5.1); Protein, Total 6.4 g/dL (6.4-8.2); Sodium Level 131 mmol/L (136-145)
== END ==
LOC: OLS.ACH 05:00
PROVIDERS: Visit Provider Family Medicine
DX: I35.1 Nonrheumatic aortic (valve) insufficiency (principal)
CPT/HCPCS: 36415; 80053; 85025

== ENCOUNTER → 2019-06-23 05:00 | Outpatient (REF) | payer MEDICARE, MEDICAID, SELFPAY ==
[2019-06-23 08:21] LABS: Absolute Lymphocyte Count 0.63 X10^3/uL (0.83-4.51); Absolute Neutrophil Count 5.7 X10^3/uL (2.0-7.7); Basophil# 0.02 X10^3/uL; Basophil% 0.3 % (0-1); Eosinophil# 0.14 X10^3/uL; Hematocrit 34.5 % (37-47); Hemoglobin 11.1 g/dL (12.0-15.0); Lymphocyte # 0.63 X10^3/ul (4.0); Lymphocyte % 9.1 % (19-41); Mean Corp Hgb Conc 32.2 g/dL (32-36); Mean Corpuscular Hgb 28.8 pg (27.0-32.0); Mean Corpuscular Volume 89.4 fL (81-99); Mean Platelet Vol. 9.7 fl (6.2-12.0); Monocyte# 0.49 X10^3/uL; NRBC Flagged by Analyzer 0 % (0-5); Neutrophil # 5.66 X10^3/uL (2.7-7.7); Neutrophil % 81.3 % (47-70); Platelet Count 180 K/mm3 (150-450); RBC Distribution Width CV 13.3 % (11.6-14.6); RBC Distribution Width SD 43.3 fl (35.1-43.9); Red Blood Count 3.86 M/mm3 (4.2-5.4)
[2019-06-23 08:38] LABS: ALB/GLOB Ratio 1.1 RATIO (0.9-2.4); AST(SGOT) 13 U/L (15-37); Alanine Aminotransfer ALT/SGPT 20 U/L (13-56); Albumin, Serum 3.4 g/dL (3.2-5.0); Alkaline Phosphatase 70 U/L (45-117); Anion Gap 7 (5-15); BUN 9 mg/dL (7-18); BUN/Creat Ratio 34.6 RATIO (10-20); Calcium,Total 8.5 mg/dL (8.5-10.1); Chloride 97 mmol/L (98-107); Creatinine, Serum 0.26 mg/dL (0.55-1.02); EST Glomerular Filtration Rate 278 mL/min (>60); Est Glom Filt Rate - Afr Amer 336 mL/min (>60); Globulin 3.2 g/dL (2.2-4.2); Glucose 90 mg/dL (74-106); Potassium 4.1 mmol/L (3.5-5.1); Protein, Total 6.6 g/dL (6.4-8.2); Sodium Level 131 mmol/L (136-145)
== END ==
LOC: OLS.ACH 05:00
PROVIDERS: Referring Provider Family Medicine; Visit Provider Family Medicine
DX: I35.1 Nonrheumatic aortic (valve) insufficiency (principal)
CPT/HCPCS: 36415; 80053; 85025

== ENCOUNTER → 2019-07-18 15:10 | Outpatient (REF) | payer MEDICARE, MEDICAID, SELFPAY ==
[2019-07-18 16:36] LABS: Hematocrit 33.5 % (37-47); Hemoglobin 10.9 g/dL (12.0-15.0); Mean Corp Hgb Conc 32.5 g/dL (32-36); Mean Corpuscular Hgb 28.5 pg (27.0-32.0); Mean Corpuscular Volume 87.5 fL (81-99); Mean Platelet Vol. 9.5 fl (6.2-12.0); Platelet Count 259 K/mm3 (150-450); RBC Distribution Width CV 12.9 % (11.6-14.6); RBC Distribution Width SD 41.1 fl (35.1-43.9); Red Blood Count 3.83 M/mm3 (4.2-5.4); White Blood Count 11.7 K/mm3 (4.4-11.0)
[2019-07-18 17:30] LABS: ALB/GLOB Ratio 0.7 RATIO (0.9-2.4); AST(SGOT) 11 U/L (15-37); Alanine Aminotransfer ALT/SGPT 20 U/L (13-56); Alkaline Phosphatase 85 U/L (45-117); Anion Gap 13 (5-15); BUN 12 mg/dL (7-18); BUN/Creat Ratio 36.9 RATIO (10-20); Calcium,Total 8.8 mg/dL (8.5-10.1); Chloride 94 mmol/L (98-107); Creatinine, Serum 0.32 mg/dL (0.55-1.02); EST Glomerular Filtration Rate 215 mL/min (>60); Est Glom Filt Rate - Afr Amer 260 mL/min (>60); Globulin 4.1 g/dL (2.2-4.2); Glucose 104 mg/dL (74-106); Potassium 3.7 mmol/L (3.5-5.1); Protein, Total 7.1 g/dL (6.4-8.2); Sodium Level 131 mmol/L (136-145)
== END ==
LOC: OLS.ACH 15:10
PROVIDERS: Visit Provider Family Medicine
DX: I35.1 Nonrheumatic aortic (valve) insufficiency (principal); G35 Multiple sclerosis
CPT/HCPCS: 36415; 80053; 85027

== ENCOUNTER → 2019-09-22 04:00 | Outpatient (REF) | payer MEDICARE, MEDICAID, SELFPAY ==
[2019-09-22 08:07] LABS: Absolute Lymphocyte Count 0.73 X10^3/uL (0.83-4.51); Absolute Neutrophil Count 6.5 X10^3/uL (2.0-7.7); Basophil# 0.04 X10^3/uL; Basophil% 0.5 % (0-1); Eosinophil# 0.19 X10^3/uL; Eosinophils% 2.3 % (0-5); Hemoglobin 10.5 g/dL (12.0-15.0); Lymphocyte # 0.73 X10^3/ul (4.0); Lymphocyte % 8.8 % (19-41); Mean Corp Hgb Conc 31.8 g/dL (32-36); Mean Corpuscular Hgb 27.5 pg (27.0-32.0); Mean Corpuscular Volume 86.4 fL (81-99); Mean Platelet Vol. 9.5 fl (6.2-12.0); Monocyte# 0.75 X10^3/uL; NRBC Flagged by Analyzer 0 % (0-5); Neutrophil # 6.54 X10^3/uL (2.7-7.7); Neutrophil % 78.6 % (47-70); Platelet Count 235 K/mm3 (150-450); RBC Distribution Width SD 43.9 fl (35.1-43.9); Red Blood Count 3.82 M/mm3 (4.2-5.4); White Blood Count 8.3 K/mm3 (4.4-11.0)
[2019-09-22 08:17] LABS: AST(SGOT) 7 U/L (15-37); Alanine Aminotransfer ALT/SGPT 13 U/L (13-56); Albumin, Serum 3.4 g/dL (3.2-5.0); Alkaline Phosphatase 70 U/L (45-117); Anion Gap 7 (5-15); BUN 8 mg/dL (7-18); BUN/Creat Ratio 35.1 RATIO (10-20); Calcium,Total 8.4 mg/dL (8.5-10.1); Chloride 99 mmol/L (98-107); Creatinine, Serum 0.23 mg/dL (0.55-1.02); EST Glomerular Filtration Rate 323 mL/min (>60); Est Glom Filt Rate - Afr Amer 391 mL/min (>60); Globulin 3.3 g/dL (2.2-4.2); Glucose 93 mg/dL (74-106); Potassium 3.9 mmol/L (3.5-5.1); Protein, Total 6.7 g/dL (6.4-8.2); Sodium Level 132 mmol/L (136-145)
== END ==
LOC: OLS.ACH 04:00
PROVIDERS: Referring Provider Family Medicine; Visit Provider Family Medicine
DX: I35.1 Nonrheumatic aortic (valve) insufficiency (principal)
CPT/HCPCS: 36415; 80053; 85025

== ENCOUNTER → 2019-11-14 05:00 | Outpatient (REF) | payer MEDICARE, MEDICAID, SELFPAY ==
[2019-11-14 07:55] LABS: Absolute Lymphocyte Count 0.94 X10^3/uL (0.83-4.51); Absolute Neutrophil Count 8.3 X10^3/uL (2.0-7.7); Basophil# 0.04 X10^3/uL; Basophil% 0.4 % (0-1); Eosinophil# 0.62 X10^3/uL; Eosinophils% 5.6 % (0-5); Hematocrit 27.3 % (37-47); Hemoglobin 8.6 g/dL (12.0-15.0); Lymphocyte # 0.94 X10^3/ul (4.0); Lymphocyte % 8.4 % (19-41); Mean Corp Hgb Conc 31.5 g/dL (32-36); Mean Corpuscular Hgb 27.5 pg (27.0-32.0); Mean Corpuscular Volume 87.2 fL (81-99); Mean Platelet Vol. 9.6 fl (6.2-12.0); Monocyte# 1.13 X10^3/uL; Monocyte% 10.1 % (0-10); NRBC Flagged by Analyzer 0 % (0-5); Neutrophil # 8.28 X10^3/uL (2.7-7.7); Neutrophil % 74.1 % (47-70); Platelet Count 498 K/mm3 (150-450); RBC Distribution Width CV 13.7 % (11.6-14.6); RBC Distribution Width SD 42.7 fl (35.1-43.9); Red Blood Count 3.13 M/mm3 (4.2-5.4); White Blood Count 11.2 K/mm3 (4.4-11.0)
== END ==
LOC: OLS.ACH 05:00
PROVIDERS: Referring Provider Family Medicine; Visit Provider Family Medicine
DX: A41.81 Sepsis due to Enterococcus (principal)
CPT/HCPCS: 36415; 85025

== ENCOUNTER → 2019-11-26 05:00 | Outpatient (REF) | payer MEDICARE, MEDICAID, SELFPAY | LOC: OLS.ACH 05:00 | PROVIDERS: Visit Provider Family Medicine | DX: Z11.59 Encounter for screening for other viral diseases (principal) | CPT/HCPCS: 87635; U0003 ==

== ENCOUNTER → 2019-11-27 05:00 | Outpatient (REF) | payer MEDICARE, MEDICAID, SELFPAY ==
[2019-11-27 09:43] LABS: Ferritin 98 ng/mL (8-252); Iron 58 ug/dL (50-170); Iron Binding Capacity,Total 490 ug/dL (250-450); PERCENT IRON SATURATION 11.8 % (15.0-55.0)
== END ==
LOC: OLS.ACH 05:00
PROVIDERS: Visit Provider Family Medicine
DX: D64.9 Anemia, unspecified (principal)
CPT/HCPCS: 36415; 82728; 82746; 83540; 83550

== ENCOUNTER → 2019-12-03 05:00 | Outpatient (REF) | payer MEDICARE, MEDICAID, SELFPAY | LOC: OLS.ACH 05:00 | PROVIDERS: Referring Provider Family Medicine; Visit Provider Family Medicine | DX: Z11.59 Encounter for screening for other viral diseases (principal) | CPT/HCPCS: 87635; U0003 ==

== ENCOUNTER → 2019-12-08 10:00 | Outpatient (REF) | payer MEDICARE, MEDICAID, SELFPAY | LOC: OLS.ACH 10:00 | PROVIDERS: Visit Provider Family Medicine | DX: Z11.59 Encounter for screening for other viral diseases (principal) | CPT/HCPCS: 87635; U0003 ==

== ENCOUNTER → 2019-12-12 16:06 | Outpatient (REF) | payer MEDICARE, MEDICAID, SELFPAY | LOC: OLS.ACH 16:06 | PROVIDERS: PCP Family Medicine; Referring Provider Family Medicine; Visit Provider Family Medicine | DX: Z03.818 Encounter for observation for suspected exposure to other biological agents ruled out (principal) | CPT/HCPCS: 87635; U0003 ==

== ENCOUNTER → 2019-12-15 08:00 | Outpatient (REF) | payer MEDICARE, MEDICAID, SELFPAY | LOC: OLS.ACH 08:00 | PROVIDERS: Referring Provider Family Medicine; Visit Provider Family Medicine | DX: Z03.818 Encounter for observation for suspected exposure to other biological agents ruled out (principal) | CPT/HCPCS: 87635; U0003 ==

== ENCOUNTER → 2019-12-19 12:18 | Outpatient (REF) | payer MEDICARE, MEDICAID, SELFPAY | LOC: OLS.ACH 12:18 | PROVIDERS: Referring Provider Family Medicine; Visit Provider Family Medicine | DX: Z03.818 Encounter for observation for suspected exposure to other biological agents ruled out (principal) | CPT/HCPCS: 87635; U0003 ==

== ENCOUNTER → 2019-12-22 04:00 | Outpatient (REF) | payer MEDICAID, SELFPAY ==
[2019-12-22 07:43] LABS: Absolute Lymphocyte Count 1.18 X10^3/uL (0.83-4.51); Absolute Neutrophil Count 5.9 X10^3/uL (2.0-7.7); Basophil# 0.04 X10^3/uL; Basophil% 0.5 % (0-1); Eosinophil# 0.75 X10^3/uL; Eosinophils% 8.7 % (0-5); Hematocrit 31.5 % (37-47); Hemoglobin 9.5 g/dL (12.0-15.0); Lymphocyte # 1.18 X10^3/ul (4.0); Lymphocyte % 13.7 % (19-41); Mean Corp Hgb Conc 30.2 g/dL (32-36); Mean Corpuscular Volume 86.3 fL (81-99); Mean Platelet Vol. 10.3 fl (6.2-12.0); Monocyte# 0.77 X10^3/uL; Monocyte% 8.9 % (0-10); NRBC Flagged by Analyzer 0 % (0-5); Neutrophil # 5.85 X10^3/uL (2.7-7.7); Neutrophil % 67.9 % (47-70); Platelet Count 300 K/mm3 (150-450); RBC Distribution Width CV 15.1 % (11.6-14.6); RBC Distribution Width SD 47.5 fl (35.1-43.9); Red Blood Count 3.65 M/mm3 (4.2-5.4); White Blood Count 8.6 K/mm3 (4.4-11.0)
[2019-12-22 08:07] LABS: ALB/GLOB Ratio 0.7 RATIO (0.9-2.4); AST(SGOT) 13 U/L (15-37); Alanine Aminotransfer ALT/SGPT 14 U/L (13-56); Albumin, Serum 2.7 g/dL (3.2-5.0); Alkaline Phosphatase 115 U/L (45-117); Anion Gap 5 (5-15); BUN 16 mg/dL (7-18); BUN/Creat Ratio 51.1 RATIO (10-20); Calcium,Total 8.5 mg/dL (8.5-10.1); Chloride 99 mmol/L (98-107); Creatinine, Serum 0.31 mg/dL (0.55-1.02); EST Glomerular Filtration Rate 224 mL/min (>60); Est Glom Filt Rate - Afr Amer 271 mL/min (>60); Glucose 100 mg/dL (74-106); Potassium 4.3 mmol/L (3.5-5.1); Protein, Total 6.7 g/dL (6.4-8.2); Sodium Level 131 mmol/L (136-145)
== END ==
LOC: OLS.ACH 04:00
PROVIDERS: PCP Family Medicine; Referring Provider Family Medicine; Visit Provider Family Medicine
DX: I35.1 Nonrheumatic aortic (valve) insufficiency (principal)
CPT/HCPCS: 36415; 80053; 85025

== ENCOUNTER → 2019-12-22 15:30 | Outpatient (REF) | payer MEDICARE, MEDICAID, SELFPAY | LOC: OLS.ACH 15:30 | PROVIDERS: PCP Family Medicine; Visit Provider Family Medicine | DX: Z03.818 Encounter for observation for suspected exposure to other biological agents ruled out (principal) | CPT/HCPCS: 87635; U0003 ==

== ENCOUNTER → 2019-12-26 09:58 | Outpatient (REF) | payer MEDICARE, MEDICAID, SELFPAY | LOC: OLS.ACH 09:58 | PROVIDERS: Referring Provider Family Medicine; Visit Provider Family Medicine | DX: Z03.818 Encounter for observation for suspected exposure to other biological agents ruled out (principal) | CPT/HCPCS: 87635; U0003 ==

== ENCOUNTER → 2019-12-26 15:02 | Outpatient (CLI) | payer MEDICARE, MEDICAID, SELFPAY ==
--- NOTE | 2019-12-26 15:12 | CT_ITS ---
STUDY: CT CHEST WITH CONTRAST REASON FOR EXAM: Female, 69 years old. Left pleural effusion cough multiple sclerosis RADIATION DOSAGE (If Supplied By Facility): CTDIvol = ( 11.06 ) mGy, DLP = ( 277.99 ) mGycm TECHNIQUE: Transaxial imaging was performed following intravenous administration of IV 75mL Isovue-300. Individualized dose optimization techniques were used for this CT. COMPARISON: None. FINDINGS: There are large bilateral pleural effusions with basilar collapse. Aerated lungs are clear. Central airways are patent. There is no pulmonary edema. Mediastinal contents are normal. Aorta is normal. There is mild thoracic scoliosis, kyphosis and severe osteoporosis. CT/Chest WITH Contrast IMPRESSION: 1. Large bilateral pleural effusions. 2. Basal atelectatic collapse. Electronically Signed: Tasha Arnold, at 17:54 EDT Tel , Service support ,
== END ==
PROVIDERS: PCP Family Medicine; Referring Provider Family Medicine; Visit Provider Family Medicine
DX: Z03.818 Encounter for observation for suspected exposure to other biological agents ruled out (principal); J90 Pleural effusion, not elsewhere classified
CPT/HCPCS: 71260; 87635; Q9967; U0003

== ENCOUNTER → 2019-12-30 10:42 | Outpatient (REF) | LOC: OLS.ACH 10:42 | PROVIDERS: Referring Provider Family Medicine; Visit Provider Family Medicine | DX: Z03.818 Encounter for observation for suspected exposure to other biological agents ruled out (principal) | CPT/HCPCS: 87635; U0003 ==

== ENCOUNTER → 2020-01-11 06:00 | Outpatient (REF) | payer MEDICARE, SELFPAY ==
[2020-01-11 10:54] LABS: Color, Urine Yellow (Yellow); Glucose, Dipstick Normal (Normal); Ketone-Dipstick Negative (Negative); Leukocyte Esterase-Dipstick 500 /ul (Negative); Nitrite-Dipstick Negative (Negative); Occult Blood-Urine 50 /ul (Negative); Protein-Dipstick Negative (Negative); Specific Gravity, Urine 1.015 (1.002-1.030); Urine Bilirubin Dipstick Negative (Negative); Urine Clarity Clear (Clear); Urine Urobilinogen Normal (Normal)
== END ==
LOC: OLS.ACH 06:00
PROVIDERS: Referring Provider Family Medicine; Visit Provider Family Medicine
DX: N31.9 Neuromuscular dysfunction of bladder, unspecified (principal); R10.9 Unspecified abdominal pain
CPT/HCPCS: 81002; 87077; 87086; 87088; 87186

== ENCOUNTER → 2020-01-13 07:46 | Outpatient (REF) | payer MEDICARE, MEDICAID, SELFPAY | LOC: OLS.ACH 07:46 | PROVIDERS: Referring Provider Family Medicine; Visit Provider Family Medicine | DX: Z03.818 Encounter for observation for suspected exposure to other biological agents ruled out (principal) | CPT/HCPCS: 87635; U0003 ==

== ENCOUNTER → 2020-01-20 08:30 | Outpatient (REF) | payer MEDICARE, MEDICAID, SELFPAY | LOC: OLS.ACH 08:30 | PROVIDERS: Referring Provider Family Medicine; Visit Provider Family Medicine | DX: Z03.818 Encounter for observation for suspected exposure to other biological agents ruled out (principal) | CPT/HCPCS: 87635; U0003 ==

== ENCOUNTER → 2020-01-27 11:50 | Outpatient (REF) | payer MEDICARE, MEDICAID, SELFPAY | LOC: OLS.ACH 11:50 | PROVIDERS: PCP Family Medicine; Referring Provider Family Medicine; Visit Provider Family Medicine | DX: Z03.818 Encounter for observation for suspected exposure to other biological agents ruled out (principal) | CPT/HCPCS: 87635; U0003 ==

== ENCOUNTER → 2020-02-10 10:17 | Outpatient (REF) | payer MEDICARE, MEDICAID, SELFPAY | LOC: OLS.ACH 10:17 | PROVIDERS: PCP Family Medicine; Referring Provider Family Medicine; Visit Provider Family Medicine | DX: Z03.818 Encounter for observation for suspected exposure to other biological agents ruled out (principal) | CPT/HCPCS: 87635; U0003 ==

== ENCOUNTER → 2020-02-24 08:01 | Outpatient (REF) | payer MEDICARE, MEDICAID, SELFPAY | LOC: OLS.ACH 08:01 | PROVIDERS: PCP Family Medicine; Referring Provider Family Medicine; Visit Provider Family Medicine | DX: Z03.818 Encounter for observation for suspected exposure to other biological agents ruled out (principal) | CPT/HCPCS: 87635; U0003 ==

== ENCOUNTER → 2020-03-09 07:39 | Outpatient (REF) | payer MEDICARE, SELFPAY | LOC: OLS.ACH 07:39 | PROVIDERS: PCP Family Medicine; Referring Provider Family Medicine; Visit Provider Family Medicine | DX: Z03.818 Encounter for observation for suspected exposure to other biological agents ruled out (principal) | CPT/HCPCS: 87635; U0003 ==

== ENCOUNTER → 2020-03-22 04:00 | Outpatient (REF) | payer MEDICARE, SELFPAY ==
[2020-03-22 08:12] LABS: Absolute Lymphocyte Count 1.29 X10^3/uL (0.83-4.51); Absolute Neutrophil Count 6.9 X10^3/uL (2.0-7.7); Basophil# 0.03 X10^3/uL; Basophil% 0.3 % (0-1); Eosinophil# 0.13 X10^3/uL; Eosinophils% 1.4 % (0-5); Hematocrit 34.2 % (37-47); Hemoglobin 10.6 g/dL (12.0-15.0); Lymphocyte # 1.29 X10^3/ul (4.0); Lymphocyte % 13.8 % (19-41); Mean Corpuscular Hgb 26.8 pg (27.0-32.0); Mean Corpuscular Volume 86.4 fL (81-99); Mean Platelet Vol. 10.1 fl (6.2-12.0); Monocyte# 0.95 X10^3/uL; Monocyte% 10.2 % (0-10); NRBC Flagged by Analyzer 0 % (0-5); Neutrophil # 6.86 X10^3/uL (2.7-7.7); Neutrophil % 73.5 % (47-70); Platelet Count 316 K/mm3 (150-450); RBC Distribution Width CV 15.2 % (11.6-14.6); RBC Distribution Width SD 48.3 fl (35.1-43.9); Red Blood Count 3.96 M/mm3 (4.2-5.4); White Blood Count 9.3 K/mm3 (4.4-11.0)
[2020-03-22 08:50] LABS: ALB/GLOB Ratio 0.8 RATIO (0.9-2.4); AST(SGOT) 13 U/L (15-37); Alanine Aminotransfer ALT/SGPT 20 U/L (13-56); Albumin, Serum 3.4 g/dL (3.2-5.0); Alkaline Phosphatase 99 U/L (45-117); Anion Gap 6 (5-15); BUN 21 mg/dL (7-18); BUN/Creat Ratio 44.7 RATIO (10-20); Chloride 96 mmol/L (98-107); Creatinine, Serum 0.47 mg/dL (0.55-1.02); EST Glomerular Filtration Rate 140 mL/min (>60); Est Glom Filt Rate - Afr Amer 169 mL/min (>60); Glucose 127 mg/dL (74-106); Protein, Total 7.4 g/dL (6.4-8.2); Sodium Level 129 mmol/L (136-145)
== END ==
LOC: OLS.ACH 04:00
PROVIDERS: PCP Family Medicine; Referring Provider Family Medicine; Visit Provider Family Medicine
DX: R53.83 Other fatigue (principal); Z79.899 Other long term (current) drug therapy
CPT/HCPCS: 36415; 80053; 85025

== ENCOUNTER → 2020-03-23 18:00 | Outpatient (REF) | payer MEDICARE, SELFPAY | LOC: OLS.ACH 18:00 | PROVIDERS: PCP Family Medicine; Referring Provider Family Medicine; Visit Provider Family Medicine | DX: Z03.818 Encounter for observation for suspected exposure to other biological agents ruled out (principal) | CPT/HCPCS: 87635; U0005; U0003 ==

== ENCOUNTER → 2020-04-19 04:00 | Outpatient (REF) | payer MEDICARE, SELFPAY ==
[2020-04-19 07:57] LABS: Anion Gap 7 (5-15); BUN 15 mg/dL (7-18); BUN/Creat Ratio 35.5 RATIO (10-20); Calcium,Total 8.7 mg/dL (8.5-10.1); Chloride 97 mmol/L (98-107); Creatinine, Serum 0.42 mg/dL (0.55-1.02); EST Glomerular Filtration Rate 158 mL/min (>60); Est Glom Filt Rate - Afr Amer 191 mL/min (>60); Glucose 104 mg/dL (74-106); Potassium 4.4 mmol/L (3.5-5.1); Sodium Level 131 mmol/L (136-145)
== END ==
LOC: OLS.ACH 04:00
PROVIDERS: PCP Family Medicine; Visit Provider Family Medicine
DX: E87.1 Hypo-osmolality and hyponatremia (principal)
CPT/HCPCS: 36415; 80048

== ENCOUNTER → 2020-06-14 05:00 | Outpatient (REF) | payer MEDICARE, SELFPAY ==
[2020-06-14 07:55] LABS: Absolute Lymphocyte Count 1.51 X10^3/uL (0.83-4.51); Absolute Neutrophil Count 6.1 X10^3/uL (2.0-7.7); Basophil# 0.04 X10^3/uL; Basophil% 0.4 % (0-1); Eosinophil# 0.29 X10^3/uL; Eosinophils% 3.3 % (0-5); Hematocrit 33.7 % (37-47); Hemoglobin 10.8 g/dL (12.0-15.0); Lymphocyte # 1.51 X10^3/ul (4.0); Mean Corpuscular Volume 90.6 fL (81-99); Mean Platelet Vol. 10.3 fl (6.2-12.0); Monocyte# 0.91 X10^3/uL; Monocyte% 10.2 % (0-10); NRBC Flagged by Analyzer 0 % (0-5); Neutrophil % 68.7 % (47-70); Platelet Count 298 K/mm3 (150-450); RBC Distribution Width SD 45.8 fl (35.1-43.9); Red Blood Count 3.72 M/mm3 (4.2-5.4); White Blood Count 8.9 K/mm3 (4.4-11.0)
[2020-06-14 08:17] LABS: ALB/GLOB Ratio 0.9 RATIO (0.9-2.4); AST(SGOT) 16 U/L (15-37); Alanine Aminotransfer ALT/SGPT 21 U/L (13-56); Albumin, Serum 3.2 g/dL (3.2-5.0); Alkaline Phosphatase 114 U/L (45-117); Anion Gap 6 (5-15); BUN 17 mg/dL (7-18); BUN/Creat Ratio 42.6 RATIO (10-20); Calcium,Total 8.8 mg/dL (8.5-10.1); Chloride 97 mmol/L (98-107); EST Glomerular Filtration Rate 169 mL/min (>60); Est Glom Filt Rate - Afr Amer 205 mL/min (>60); Globulin 3.6 g/dL (2.2-4.2); Glucose 107 mg/dL (74-106); Potassium 4.4 mmol/L (3.5-5.1); Protein, Total 6.8 g/dL (6.4-8.2); Sodium Level 131 mmol/L (136-145)
== END ==
LOC: OLS.ACH 05:00
PROVIDERS: PCP Family Medicine; Referring Provider Family Medicine; Visit Provider Family Medicine
DX: G35 Multiple sclerosis (principal); D64.9 Anemia, unspecified; F41.9 Anxiety disorder, unspecified
CPT/HCPCS: 36415; 80053; 85025

== ENCOUNTER → 2020-06-29 05:30 | Outpatient (REF) | payer MEDICARE, SELFPAY ==
[2020-06-29 08:17] LABS: Anion Gap 5 (5-15); BUN 17 mg/dL (7-18); BUN/Creat Ratio 42.4 RATIO (10-20); Calcium,Total 8.7 mg/dL (8.5-10.1); Chloride 96 mmol/L (98-107); EST Glomerular Filtration Rate 168 mL/min (>60); Est Glom Filt Rate - Afr Amer 203 mL/min (>60); Glucose 109 mg/dL (74-106); Potassium 4.5 mmol/L (3.5-5.1); Sodium Level 130 mmol/L (136-145)
== END ==
LOC: OLS.ACH 05:30
PROVIDERS: PCP Family Medicine; Referring Provider Family Medicine; Visit Provider Family Medicine
DX: G35 Multiple sclerosis (principal); E87.1 Hypo-osmolality and hyponatremia
CPT/HCPCS: 36415; 80048

== ENCOUNTER → 2020-09-02 05:00 | Outpatient (REF) | payer MEDICARE, SELFPAY ==
[2020-09-02 09:05] LABS: Absolute Lymphocyte Count 0.87 X10^3/uL (0.83-4.51); Absolute Neutrophil Count 5.1 X10^3/uL (2.0-7.7); Basophil# 0.03 X10^3/uL; Basophil% 0.4 % (0-1); Eosinophil# 0.36 X10^3/uL; Eosinophils% 4.8 % (0-5); Hematocrit 34.8 % (37-47); Lymphocyte # 0.87 X10^3/ul (0.83-4.51); Lymphocyte % 11.7 % (19-41); Mean Corp Hgb Conc 31.6 g/dL (32-36); Mean Corpuscular Hgb 27.4 pg (27.0-32.0); Mean Corpuscular Volume 86.6 fL (81-99); Monocyte# 0.99 X10^3/uL; Monocyte% 13.3 % (0-10); NRBC Flagged by Analyzer 0 % (0-5); Neutrophil # 5.13 X10^3/uL (2.7-7.7); Neutrophil % 68.9 % (47-70); Platelet Count 312 K/mm3 (150-450); RBC Distribution Width SD 43.9 fl (35.1-43.9); Red Blood Count 4.02 M/mm3 (4.2-5.4); White Blood Count 7.5 K/mm3 (4.4-11.0)
[2020-09-02 09:27] LABS: ALB/GLOB Ratio 0.9 RATIO (0.9-2.4); AST(SGOT) 18 U/L (15-37); Alanine Aminotransfer ALT/SGPT 31 U/L (13-56); Albumin, Serum 3.5 g/dL (3.2-5.0); Alkaline Phosphatase 128 U/L (45-117); Anion Gap 7 (5-15); BUN 15 mg/dL (7-18); BUN/Creat Ratio 41.2 RATIO (10-20); Calcium,Total 8.7 mg/dL (8.5-10.1); Chloride 96 mmol/L (98-107); Creatinine, Serum 0.36 mg/dL (0.55-1.02); EST Glomerular Filtration Rate 188 mL/min (>60); Est Glom Filt Rate - Afr Amer 227 mL/min (>60); Globulin 3.9 g/dL (2.2-4.2); Glucose 129 mg/dL (74-106); Protein, Total 7.4 g/dL (6.4-8.2); Sodium Level 129 mmol/L (136-145)
== END ==
LOC: OLS.ACH 05:00
PROVIDERS: PCP Family Medicine; Referring Provider Family Medicine; Visit Provider Family Medicine
DX: Z79.899 Other long term (current) drug therapy (principal)
CPT/HCPCS: 36415; 80053; 85025

== ENCOUNTER → 2020-09-16 15:40 | Outpatient (REF) | payer MEDICARE, SELFPAY ==
[2020-09-16 17:23] LABS: Anion Gap 8 (5-15); BUN 18 mg/dL (7-18); BUN/Creat Ratio 47.5 RATIO (10-20); Calcium,Total 8.5 mg/dL (8.5-10.1); Chloride 96 mmol/L (98-107); Creatinine, Serum 0.38 mg/dL (0.55-1.02); EST Glomerular Filtration Rate 179 mL/min (>60); Est Glom Filt Rate - Afr Amer 217 mL/min (>60); Glucose 87 mg/dL (74-106); Potassium 4.6 mmol/L (3.5-5.1); Sodium Level 132 mmol/L (136-145)
== END ==
LOC: OLS.ACH 15:40
PROVIDERS: PCP Family Medicine; Referring Provider Family Medicine; Visit Provider Family Medicine
DX: G35 Multiple sclerosis (principal)
CPT/HCPCS: 36415; 80048

== ENCOUNTER → 2020-10-04 05:00 | Outpatient (REF) | payer MEDICARE, SELFPAY ==
[2020-10-04 08:34] LABS: Absolute Lymphocyte Count 0.77 X10^3/uL (0.83-4.51); Absolute Neutrophil Count 3.5 X10^3/uL (2.0-7.7); Basophil# 0.03 X10^3/uL; Basophil% 0.6 % (0-1); Eosinophil# 0.19 X10^3/uL; Eosinophils% 3.6 % (0-5); Hematocrit 32.8 % (37-47); Hemoglobin 10.3 g/dL (12.0-15.0); Lymphocyte # 0.77 X10^3/ul (0.83-4.51); Lymphocyte % 14.7 % (19-41); Mean Corp Hgb Conc 31.4 g/dL (32-36); Mean Corpuscular Hgb 27.2 pg (27.0-32.0); Mean Corpuscular Volume 86.5 fL (81-99); Mean Platelet Vol. 10.5 fl (6.2-12.0); Monocyte# 0.73 X10^3/uL; Monocyte% 13.9 % (0-10); NRBC Flagged by Analyzer 0 % (0-5); Neutrophil % 66.8 % (47-70); Platelet Count 223 K/mm3 (150-450); RBC Distribution Width CV 14.4 % (11.6-14.6); RBC Distribution Width SD 45.4 fl (35.1-43.9); Red Blood Count 3.79 M/mm3 (4.2-5.4); White Blood Count 5.2 K/mm3 (4.4-11.0)
== END ==
LOC: OLS.ACH 05:00
PROVIDERS: PCP Family Medicine; Visit Provider Family Medicine
DX: D72.810 Lymphocytopenia (principal)
CPT/HCPCS: 36415; 85025

== ENCOUNTER 2021-05-30 14:09 | Emergency (ER) | payer MEDICARE, MEDICAID, SELFPAY ==
[2021-05-30 14:10] VITALS: BP 131/76; PULSE 79; RESP 18; TEMP 36.2; O2SAT 99; BMI 23.3
--- NOTE | 2021-05-30 14:23 | EX.ED.DYSGE1 ---
HPI History of Present Illness Chief Complaint: Other, Pain/Inj Detail of Chief Complaint: Clogged feeding tube. Narrative Narrative: 71-year-old [place] [facility] [place] [facility] but unable to communicate. Was sent in for a feeding tube that is clogged. Patient is unable to communicate. I will speak with the penitentiary. Prior similar symptoms: Yes Recent Illness/Hospitalization: No PFSH PFSH Allergy/AdvReac Type Severity Reaction Status Date / Time ciprofloxacin [From Cipro] Allergy Other Verified 05/30/21 14:17 codeine Allergy NEEDS Verified 05/30/21 14:17 FOLLOW-UP fluoxetine [From Prozac] Allergy NEEDS Verified 05/30/21 14:17 FOLLOW-UP methylprednisolone Allergy NEEDS Verified 05/30/21 14:17 FOLLOW-UP ROS ROS ED ROS Narrative Unknown due to the patient's inability to communicate and mental status. Review of Systems ROS Unobtainable: due to mental status EXAM Physical Exam Narrative Exam Narrative: 71-year-old female lying in bed. Vital signs are stable afebrile. HEENT exam is unremarkable. Vascular membranes. Patient is not speaking. Lungs clear to auscultation. Heart regular rhythm rate about 80 no murmur. Abdomen soft nondistended normal bowel sounds no peritoneal signs. She is a left upper quadrant feeding tube that is clogged. It does not have a size on it. Extremities are nontender. She has heel boots on both feet. Neurologically her eyes are open. She does not speak. She does not follow commands. Const Vital Signs: 05/30/21 14:10 Temperature 97.2 F L Temperature Source Temporal Pulse Rate 79 Respiratory Rate 18 Blood Pressure 131/76 H Blood Pressure Mean 94 Pulse Ox 99 Oxygen Delivery Method Room Air Positive well nourished, well developed and obese; Negative for cachectic, contractures or unkempt General Appearance ED: well developed and NAD; Negative for unkempt, cachectic, contractures, cyanotic or diaphoretic Nutritional Appearance: obese; Negative for cachectic HEENT Reports moist mucous membranes Negative for trauma or tenderness Eyes PERRL and EOMs intact bilaterally Neck no lymphadenopathy, supple and no JVD General: Negative for tenderness Chest Wall inspection of chest normal and palpation of chest normal Resp normal respiratory effort and clear to auscultation bilaterally Effort and Inspection: Negative for pain with movement Auscultation: Negative for rales or rhonchi Cardio regular rate, regular rhythm, S1 normal heart sound, S2 normal heart sound and no murmurs GI normal to inspection, nondistended, normoactive bowel sounds, non-tender, non-distended and no masses Auscultation: normoactive bowel sounds Palpation: soft Extremity Extremity Narrative: Extremities are very weak from MS. She is unable to lift them. General Extremety ED: Negative for tenderness Neuro Neuro Narrative: Eyes open. Does not speak. Severe MS. Unable to lift extremities. This is all her baseline. Sensorium / Orientation: alert Psych mental status grossly normal Appearance: Negative for unkempt Skin no rashes or lesions noted and no wounds MDM MDM MDM Narrative Medical decision making narrative: Was able to remove the patient's feeding tube which had a collapsible shield. And replaced it with a 22 [place]i feeding tube that has a saline balloon to anchor it. Went in without any difficulty. Patient tolerated procedure well. We are obtaining a single view KUB with Gastrografin to ensure placement. Radiography Diagnostic Testing: Single view, KUB, with Gastrografin shows appropriate placement of the feeding tube with Gastrografin in the stomach. Interpreted by myself. Procedures Other Procedures Procedure(s): Replaced clogged feeding tube with a 22 [place] feeding tube with a 5 cc balloon to anchor it. Patient tolerated procedure well. Placement was verified with a single view Gastrografin x-ray. Discharge Plan Triage Chief Complaint: Other, Pain/Inj ED Provider: Fransisco Shelby Dx/Rx/DC Orders Clinical Impression: Clogged feeding tube, Hx of multiple sclerosis Instructions: ED Feeding Tube Insertion Primary Care Provider: Rogelio Jason Referrals: Rogelio Jason [Primary Care Provider] - As Needed Activity Restrictions/Additional Instructions: We were able to easily remove the old feeding tube. We replaced it with a 22 Yemeni gastric tube that is anchored by a 5 cc saline balloon. Placement was verified with an x-ray. Disposition Disposition: Home, Self Care
--- NOTE | 2021-05-30 14:37 | ED.RN ---
Patient brought by [facility] for a clogged PEG tube. Rn stated it slowly drained but thinks it should get replaced. RN at [facility] unable to tell Dr. Shelby or charge nurse when tube had been placed or what size the tube was. Dr. Shelby and this RN at bedside to remove current PEG tube and to replace with 22 Fr PEG tube. Small amount of serous drainage. Pt denies pain at this time. Procedure tolerated well. X-ray tech at bedside.
--- NOTE | 2021-05-30 14:40 | RAD_ITS ---
STUDY: X-RAY - ABDOMEN/PELVIS REASON FOR EXAM: Female, 71 years old. PEG TUBE,GASTROGRAPFEN TECHNIQUE: Single AP view of the abdomen / pelvis. COMPARISON: None. FINDINGS: 20 cc of GASTROGRAFIN was injected into the PEG tube. The PEG tube is within the stomach. RAD/Abdomen Single View IMPRESSION: The PEG tube is within the stomach. Electronically Signed: Jeb Meng MD at 15:10 EDT ,
[2021-05-30 14:54] VITALS: BP 132/74; PULSE 80; RESP 16; O2SAT 98
== END 2021-05-30 16:17 | disposition home or self-care (01) ==
PROVIDERS: Emergency Provider Emergency Medicine; PCP Family Medicine; Visit Provider Emergency Medicine
DX: K94.23 Gastrostomy malfunction (principal); G35 Multiple sclerosis; E66.9 Obesity, unspecified
CPT/HCPCS: 74018; 99283

== ENCOUNTER → 2021-08-15 | Outpatient (REF) | payer MEDICARE, MEDICAID, SELFPAY ==
[2021-08-15 10:00] LABS: Absolute Lymphocyte Count 1.14 X10^3/uL (0.83-4.51); Basophil# 0.06 X10^3/uL; Basophil% 0.7 % (0-1); Eosinophil# 0.54 X10^3/uL; Eosinophils% 6.1 % (0-5); Hematocrit 34.5 % (37-47); Hemoglobin 10.8 g/dL (12.0-15.0); Lymphocyte # 1.14 X10^3/ul (0.83-4.51); Lymphocyte % 12.9 % (19-41); Mean Corp Hgb Conc 31.3 g/dL (32-36); Mean Corpuscular Hgb 27.6 pg (27.0-32.0); Mean Corpuscular Volume 88.2 fL (81-99); Mean Platelet Vol. 10.1 fl (6.2-12.0); Monocyte# 1.04 X10^3/uL; Monocyte% 11.8 % (0-10); NRBC Flagged by Analyzer 0 % (0-5); Neutrophil # 5.99 X10^3/uL (2.7-7.7); Neutrophil % 67.7 % (47-70); Platelet Count 241 K/mm3 (150-450); RBC Distribution Width CV 13.6 % (11.6-14.6); RBC Distribution Width SD 43.9 fl (35.1-43.9); Red Blood Count 3.91 M/mm3 (4.2-5.4); White Blood Count 8.8 K/mm3 (4.4-11.0)
[2021-08-15 10:01] LABS: ALB/GLOB Ratio 0.8 RATIO (0.9-2.4); AST(SGOT) 15 U/L (15-37); Alanine Aminotransfer ALT/SGPT 21 U/L (13-56); Albumin, Serum 2.9 g/dL (3.2-5.0); Alkaline Phosphatase 97 U/L (45-117); Anion Gap 6 (5-15); BUN 14 mg/dL (7-18); BUN/Creat Ratio 43.8 RATIO (10-20); Calcium,Total 8.6 mg/dL (8.5-10.1); Chloride 95 mmol/L (98-107); Creatinine, Serum 0.32 mg/dL (0.55-1.02); EST Glomerular Filtration Rate 217 mL/min (>60); Est Glom Filt Rate - Afr Amer 263 mL/min (>60); Globulin 3.7 g/dL (2.2-4.2); Glucose 104 mg/dL (74-106); Potassium 4.2 mmol/L (3.5-5.1); Protein, Total 6.6 g/dL (6.4-8.2); Sodium Level 129 mmol/L (136-145)
== END ==
LOC: OLS.ACH 04:00
PROVIDERS: PCP Family Medicine; Visit Provider Family Medicine
DX: Z79.899 Other long term (current) drug therapy (principal)
CPT/HCPCS: 36415; 80053; 85025

== ENCOUNTER 2021-10-22 08:20 | Emergency (ER) | payer MEDICARE, MEDICAID, SELFPAY ==
[2021-10-22 08:22] VITALS: BP 163/89; PULSE 131; RESP 20; TEMP 36.2; O2SAT 89; BMI 37.9
--- NOTE | 2021-10-22 08:40 | RAD_ITS ---
STUDY: X-RAY - ABDOMEN/PELVIS REASON FOR EXAM: Female, 71 years old. peg tube placement -- gastrografin TECHNIQUE: Single AP view of the abdomen / pelvis. COMPARISON: 05/30/2021 FINDINGS: Percutaneous gastrostomy tube was injected with contrast with emptying into the stomach and without contrast extravasation to suggest leak. There is an unremarkable bowel gas pattern. The visualized liver, spleen and kidneys are grossly normal in size and morphology. Normal soft tissue structures. Normal visualized osseous structures. RAD/Abdomen Single View (Portable) IMPRESSION: Percutaneous gastrostomy tube empties into the stomach without leak. Electronically Signed: Nadeem Figueroa MD at 9:12 EDT ,
--- NOTE | 2021-10-22 08:41 | EX.ED.DYSGE1 ---
HPI History of Present Illness Chief Complaint: Other, Pain/Inj Narrative Narrative: 71-year-old female from [facility] for PEG tube replacement. Apparently this came out last night. The patient did not want to come in last evening. This is not a new PEG tube. She had this replaced in May after it was clogged as well. It appears she had a 22 [place] in place. She did not arrive with. Patient has no complaints otherwise. [facility] Medical History Anemia Multiple sclerosis Narcolepsy Neurogenic bowel Nonrheumatic aortic (valve) insufficiency Osteoarthritis Tachycardia Allergy/AdvReac Type Severity Reaction Status Date / Time ciprofloxacin [From Cipro] Allergy Other Verified 05/30/21 14:17 codeine Allergy NEEDS Verified 05/30/21 14:17 FOLLOW-UP fluoxetine [From Prozac] Allergy NEEDS Verified 05/30/21 14:17 FOLLOW-UP methylprednisolone Allergy NEEDS Verified 05/30/21 14:17 FOLLOW-UP Social History Smoking Status: Never smoker ROS ROS ED Constitutional Constitutional ED: Denies chills or fever(s) Eyes Eyes: Denies change in vision or diplopia ENT ENT ED: Denies rhinorrhea or sore throat Cardiovascular Cardiovascular: Denies chest pain or palpitations Respiratory/Chest Respiratory/Chest: Denies cough or dyspnea Gastrointestinal Gastrointestinal: Reports other Details: PEG tube displacement ; Denies abdominal pain or constipation Genitourinary Genitourinary ED: Denies dysuria or hematuria Musculoskeletal Musculoskeletal: Denies arthralgias or back pain Integumentary Denies abscess or Abrasions Neurologic Neurologic: Denies headache(s) or paresthesias Psychiatric Psychiatric: Denies anxiety or depression EXAM Physical Exam Const Vital Signs: 10/22/21 08:22 Temperature 97.2 F L Temperature Source Temporal Pulse Rate 131 H Respiratory Rate 20 H Blood Pressure 163/89 H Blood Pressure Mean 113 Pulse Ox 89 Oxygen Delivery Method Room Air Positive well nourished General Appearance ED: NAD; Negative for pallor HEENT Reports moist mucous membranes Negative for trauma Eyes PERRL and EOMs intact bilaterally Chest Wall inspection of chest normal and palpation of chest normal Resp normal respiratory effort and clear to auscultation bilaterally Cardio regular rate and regular rhythm GI GI Narrative: Stoma clean and dry. No evidence of infection. No drainage. PEG tube not in place Neuro Sensorium / Orientation: alert Psych mental status grossly normal Skin no rashes or lesions noted General Skin Exam: Negative for jaundice or pallor MDM MDM MDM Narrative Medical decision making narrative: Patient stoma site was cleaned. 22 [place] tube was placed. There was no difficulty. Patient tolerated procedure well. I obtained a KUB with Gastrografin. The the PEG tube appears to be in appropriate session on my interpretation. The radiologist agree. This point patient continues to be discharged back to her nursing facility. Impression: 1. PEG tube displacement 2. PEG tube replacement Lab Data Attestation: I reviewed the patient's lab results. Radiography Diagnostic Testing: Clinical Impression(s) from Imaging Studies KUB X-Ray 10/22/21 08:40 IMPRESSION: Percutaneous gastrostomy tube empties into the stomach without leak. Electronically Signed: Nadeem Figueroa MD at 9:12 EDT , Discharge Plan Triage Chief Complaint: Other, Pain/Inj ED Provider: Morgan Newell Dx/Rx/DC Orders Instructions: ED Feeding Tube Replacement Primary Care Provider: Rogelio Jason Referrals: Rogelio Jason [Primary Care Provider] - Disposition Disposition: Home, Self Care
--- NOTE | 2021-10-22 09:25 | ED.RN ---
PHYSICIANS COMING TO GET PT ETA 90 MIN
[2021-10-22 10:50] VITALS: BP 161/78; PULSE 122; PULSE 125; RESP 28; O2SAT 93; O2SAT 94
== END 2021-10-22 11:18 | disposition home or self-care (01) ==
PROVIDERS: Emergency Provider Student in an Organized Health Care Education/Training Program; PCP Family Medicine; Visit Provider Student in an Organized Health Care Education/Training Program
DX: K94.23 Gastrostomy malfunction (principal); G35 Multiple sclerosis; I35.1 Nonrheumatic aortic (valve) insufficiency; K59.2 Neurogenic bowel, not elsewhere classified; G47.419 Narcolepsy without cataplexy; Z79.82 Long term (current) use of aspirin; Z79.899 Other long term (current) drug therapy
CPT/HCPCS: 74018; 99284

== ENCOUNTER 2022-01-13 11:55 | Inpatient (IN) | payer MEDICARE, MEDICAID, SELFPAY ==
[2022-01-13] VITALS (8 sets, daily range): BP systolic 121–147; BP diastolic 61–103; PULSE 115–136; RESP 18–26; TEMP 36.3–36.8; O2SAT 93–98; BMI 24.5; BMI 22.8
--- NOTE | 2022-01-13 12:17 | EDS_ITS ---
HPI History of Present Illness Chief Complaint: General Illness Detail of Chief Complaint: Patient unable to give any history due to chronic disease. Onset/Context/Timing Onset: Days Timing: Continuous Current Severity: Mild Maximum Severity: Mild Narrative Narrative: 71-year-old female was in hospice recently revoked. Has a history of anemia and MS. She is unable to give me any history. She was sent in today from the [facility] to be evaluated. I will speak to them by phone. There is no one with the patient. Prior similar symptoms: No Recent Illness/Hospitalization: No PFSH [facility] Medical History Anemia Multiple sclerosis Narcolepsy Neurogenic bowel Nonrheumatic aortic (valve) insufficiency Osteoarthritis Tachycardia Home Medications acetaminophen 325 mg capsule 325 mg feeding tube Q6H PRN Pain 10/22/21 [History Last Taken Unknown] acetaminophen 325 mg tablet 650 mg feeding tube Q4H PRN Fever 10/22/21 [History Last Taken Unknown] acetaminophen 650 mg rectal suppository 650 mg MT Q4H PRN PAIN/FEVER 10/22/21 [History Last Taken Unknown] aspirin 81 mg tablet,delayed release 81 mg feeding tube DAILY 10/22/21 [History Last Taken Unknown] baclofen 10 mg tablet 10 mg feeding tube BID 10/22/21 [History Last Taken Unknown] betamethasone dipropionate 0.05 % lotion 1 applic topical DAILY PRN REDNESS 10/22/21 [History Last Taken Unknown] bisacodyl 10 mg rectal suppository 10 mg MT DAILY PRN Constipation 10/22/21 [History Last Taken Unknown] coal tar 1 % shampoo 1 applic topical TH 10/22/21 [History Last Taken Unknown] dextromethorphan-guaifenesin 10 mg-100 mg/5 mL oral liquid 10 ml PO BID 10/22/21 [History Last Taken Unknown] dextromethorphan-guaifenesin 10 mg-100 mg/5 mL oral liquid 10 ml feeding tube Q6H PRN PRN Cough 10/22/21 [History Last Taken Unknown] furosemide 20 mg tablet 20 mg feeding tube DAILY 10/22/21 [History Last Taken Unknown] glatiramer 40 mg/mL subcutaneous syringe (Copaxone) 40 mg subcut MOWEFR 10/22/21 [History Last Taken Unknown] hyoscyamine sulfate 0.125 mg tablet (Levsin) 0.125 mg feeding tube Q4H PRN PRN SECRETIIONS 10/22/21 [History Last Taken Unknown] hyoscyamine sulfate 0.125 mg tablet (Levsin) 0.125 mg feeding tube Q6H PRN PRN Secretions 10/22/21 [History Last Taken Unknown] ibuprofen 400 mg tablet 400 mg feeding tube BID 10/22/21 [History Last Taken Unknown] lactulose 20 gram/30 mL oral solution 10 g feeding tube DAILY 10/22/21 [History Last Taken Unknown] loperamide 1 mg/5 mL oral liquid 1 mg feeding tube 4X/DAY 10/22/21 [History Last Taken Unknown] metoprolol tartrate 25 mg tablet 12.5 mg feeding tube BID 10/22/21 [History Last Taken Unknown] modafinil 200 mg tablet 200 mg feeding tube DAILY 10/22/21 [History Last Taken Unknown] multivitamin with minerals-iron fumarate 9 mg iron/15 mL oral liquid (Multi Vitamin) 5 ml PO DAILY 10/22/21 [History Last Taken Unknown] mupirocin 2 % topical ointment 1 applic topical TID 10/22/21 [History Last Taken Unknown] nystatin 100,000 unit/gram topical cream 1 applic topical BID 10/22/21 [History Last Taken Unknown] ondansetron HCl 4 mg tablet 4 mg feeding tube Q6H PRN Nausea 10/22/21 [History Last Taken Unknown] oxycodone-acetaminophen 5 mg-325 mg tablet 1 tab feeding tube DAILY 10/22/21 [History Last Taken Unknown] oxycodone-acetaminophen 5 mg-325 mg tablet (Percocet) 1 tab feeding tube BID PRN PRN Pain 10/22/21 [History Last Taken Unknown] pantoprazole 40 mg granules delayed-release for susp in packet 40 mg feeding tube DAILY 10/22/21 [History Last Taken Unknown] paroxetine HCl 10 mg tablet 15 mg PO QHS 10/22/21 [History Last Taken Unknown] phenazopyridine 200 mg tablet 200 mg feeding tube TID PRN BURNING 10/22/21 [History Last Taken Unknown] saliva substitute combo no.9 (Biotene Dry Mouth Oral Rinse mouthwash) 15 ml mucous membrane Q4H PRN PRN Dry Mouth 10/22/21 [History Last Taken Unknown] sennosides 8.6 mg-docusate sodium 50 mg tablet (Senexon-S) 1 tab-cap PO BID 10/22/21 [History Last Taken Unknown] sodium phosphates 19 gram-7 gram/118 mL enema (Enema) 118 ml MT DAILY PRN CONSTIPATION 10/22/21 [History Last Taken Unknown] sulfamethoxazole 400 mg-trimethoprim 80 mg tablet (Bactrim) 1 tab feeding tube DAILY 10/22/21 [History Last Taken Unknown] trolamine salicylate 10 % topical cream 1 applic topical 4X/DAY PRN ARTHRITIS 10/22/21 [History Last Taken Unknown] trolamine salicylate 10 % topical cream (Aspercreme) 1 applic topical QHS 10/22/21 [History Last Taken Unknown] Allergy/AdvReac Type Severity Reaction Status Date / Time ciprofloxacin [From Cipro] Allergy Other Verified 10/22/21 09:53 codeine Allergy NEEDS Verified 10/22/21 09:53 FOLLOW-UP fluoxetine [From Prozac] Allergy NEEDS Verified 10/22/21 09:53 FOLLOW-UP methylprednisolone Allergy NEEDS Verified 10/22/21 09:53 FOLLOW-UP Social History Smoking Status: Never smoker ROS ROS ED ROS Narrative Unable to obtain due to the patient's overall medical condition. Review of Systems ROS Unobtainable: due to mental status EXAM Physical Exam Narrative Exam Narrative: 71-year-old female. Vital signs are stable and afebrile. Pulse ox 96% on 2 L. No hypoxia. She is tachycardic at 136. Initial blood pressure 121/103. H EENT exam unremarkable. Pallor. Moist mucous membranes. Neck nontender no lymphadenopathy. Lungs coarse breath sounds bilaterally. Heart tachycardic rate of 135. Abdomen soft nondistended normal bowel sounds no peritoneal signs. She has a new replaced PEG tube and the left upper quadrant. Has either biliou s or coffee-ground drainage around it. There is also some irritation of the skin of the ostomy. Extremities she has contractures in both hands. She cannot lift either hand or leg. She has severe MS. Neurologically her eyes are open she is tries to speak but is unable to. This is her normal baseline per the extended care facility staff that I spoke to. Const Vital Signs: 01/13/22 11:56 01/13/22 11:59 Temperature 97.4 F L Temperature Source Temporal Pulse Rate 136 H Respiratory Rate 25 H Respiratory Pattern Tachypnea Blood Pressure 121/103 H Blood Pressure Mean 109 Pulse Ox 96 Oxygen Delivery Method Nasal Cannula Oxygen Flow Rate (L/min) 2 Positive well nourished, well developed and contractures; Negative for obese, cachectic or unkempt General Appearance ED: well developed, contractures and pallor; Negative for unkempt, cachectic, cyanotic or diaphoretic Nutritional Appearance: Negative for cachectic or obese HEENT Reports moist mucous membranes; Denies dry mucous membranes Negative for trauma or tenderness Mouth ED: No dry mucous membranes Mouth: No dry mucous membranes Eyes PERRL and EOMs intact bilaterally General Eye ED: Yes pale conjunctiva; Negative for scleral icterus Neck no lymphadenopathy, supple and no JVD General: Negative for tenderness Lymph Lymphatic: Negative for other Chest Wall inspection of chest normal and palpation of chest normal Resp normal respiratory effort and No clear to auscultation bilaterally Resp Narrative: Coarse breath sounds bilaterally. Effort and Inspection: Negative for retractions Auscultation: rhonchi; Negative for rales, wheezes or diminished lung sounds Cardio regular rhythm, S1 normal heart sound, S2 normal heart sound and no murmurs; Negative for regular rate Palpation: Negative for palpable S3 or palpable S4 Rate: tachycardic GI normal to inspection, nondistended, normoactive bowel sounds, non-tender, non- distended and no masses GI Narrative: PEG tube left upper quadrant. Irritation of the skin. There is drainage and/or possible coffee-ground material. No bright red blood. No clots. Inspection: Negative for abdominal distention Auscultation: normoactive bowel sounds Palpation: soft; Negative for tender or guarding Back/Spine no CVA tenderness General Back: Negative for CVA tenderness Cervical Spine: Negative for cervical spine tenderness Thoracic Spine / Upper Back: Negative for thoracic spinal tenderness Lumbar Spine / Lower Back: Negative for lumbar spinal tenderness Extremity Negative for normal to inspection Extremity Narrative: Contractures. Weakness bilaterally. Abnormal range of motion. Cachectic. Muscular wasting. Pale. General Extremety ED: Yes tenderness; Negative for edema General Extremity: Negative for edema Neuro No oriented x3 and No CN's II-XII intact bilaterally Neuro Narrative: Awake. Eyes open. Tries to respond unable to speak audibly. Contractures. Sensorium / Orientation: alert Motor Exam: Negative for strength 5/5 throughout Psych Appearance: Negative for unkempt Attitude: No agitated Mood & Affect: Negative for depressed, anxious or tearful Skin no rashes or lesions noted and no wounds General Skin Exam: pallor; Negative for jaundice Lesions: No lesion noted Rashes: No rashes noted Trauma: Negative for abrasion Wounds: Negative for wounds noted MDM MDM MDM Narrative Medical decision making narrative: 71-year-old female with severe MS was on hospice that was revoked today. Sent in for evaluation. There may be an issue with her feeding tube. She will be treated with IV fluids. Screening labs and chest x-ray will be obtained. Repeat exam unchanged. Family is present in room. I discussed with them. I do want her admitted for IV antibiotics. I discussed with her the chest x-ray and lab results. The x-ray results. Repeat examination of the feeding tube shows drainage. I will obtain a CT of the abdomen with IV contrast. Patient will be started on IV Levaquin. Lab Data Attestation: I reviewed the patient's lab results. Lab results narrative: CBC shows a white count of 31,200. H&H 11.4 and 35. Platelets 367. Electrolytes show sodium 132 a gap of 15 and a BUN of 12 creatinine 0.26. Liver enzymes are unremarkable. Glucose of 91. Chest x-ray is consistent with a right lower lobe pneumonia. Labs: Laboratory Results - last 24 hr 01/13/22 01/13/22 12:40 12:40 WBC 31.2 H* RBC 4.10 L Hgb 11.4 L Hct 35.6 L MCV 86.8 MCH 27.8 MCHC 32.0 RDW Std Deviation 45.2 H RDW Coeff of Jaki 14.3 Plt Count 367 MPV 9.8 Immature Gran % (Auto) 1.000 H Neut % (Auto) 87.5 H Lymph % (Auto) 3.5 L [place] % (Auto) 7.6 Eos % (Auto) 0.1 Baso % (Auto) 0.3 Absolute Neuts (auto) 27.3 H Absolute Lymphs (auto) 1.08 Nucleated RBC % 0 Diff Path Review May foll Platelet Estimate ADEQUATE RBC Morphology NORM C+C Sodium 132 L Potassium 3.8 Chloride 102 Carbon Dioxide 15.0 L Anion Gap 15 BUN 12 Creatinine 0.26 L Estim Creat Clear Calc 43.92 Est GFR (MDRD) Af Amer 329 Est GFR (MDRD) Non-Af 272 BUN/Creatinine Ratio 45.6 H Glucose 91 Calcium 9.6 Total Bilirubin 0.60 AST 17 ALT 15 Alkaline Phosphatase 99 Total Protein 7.5 Albumin 2.9 L Globulin 4.6 H Albumin/Globulin Ratio 0.6 L Radiography Chest X-Ray - ED: 1 View, Read by ED Physician, Heart, Mediastinum, Bony Structures, No Acute Disease, Chronic Changes and Right Infiltrate Diagnostic Testing: Clinical Impression(s) from Imaging Studies Chest X-Ray 01/13/22 12:45 IMPRESSION: Pulmonary infiltrate in the right lower lobe with a small right pleural effusion. Electronically Signed: Jeb Meng MD at 13:20 EDT , KUB X-Ray 01/13/22 13:05 IMPRESSION: The PEG tube is in the distal portion of the stomach. Electronically Signed: Jeb Meng MD at 13:53 EDT , Chest x-ray, portable, single view interpreted both myself and radiologist shows chronic changes in the right lower lobe pneumonia with possible effusion. KUB with Gastrografin shows the feeding tube to be in the distal stomach. Read by both radiologist and myself. Discharge Plan Triage Chief Complaint: General Illness ED Provider: Fransisco Shelby Dx/Rx/DC Orders Prescriptions: No Action acetaminophen 325 mg Tablet 650 mg feeding tube Q4H PRN (Reason: Fever) acetaminophen 650 mg Suppository 650 mg MT Q4H PRN (Reason: PAIN/FEVER) paroxetine HCl 10 mg Tablet 15 mg PO QHS sulfamethoxazole-trimethoprim [Bactrim] 400-80 mg Tablet 1 tab feeding tube DAILY dextromethorphan-guaifenesin [Guaifenesin-DM] 10-100 mg/5 mL Liquid 10 ml feeding tube Q6H PRN PRN (Reason: Cough) dextromethorphan-guaifenesin [Guaifenesin-DM] 10-100 mg/5 mL Liquid 10 ml PO BID phenazopyridine 200 mg Tablet 200 mg feeding tube TID PRN (Reason: BURNING) ondansetron HCl [Zofran] 4 mg Tablet 4 mg feeding tube Q6H PRN (Reason: Nausea) sennosides-docusate sodium [Senexon-S] 8.6-50 mg Tablet 1 tab-cap PO BID aspirin [Aspir-81] 81 mg Tablet,Delayed Release (Dr/Ec) 81 mg feeding tube DAILY loperamide 1 mg/5 mL Liquid 1 mg feeding tube 4X/DAY Rx Instructions: administer after each loose stool until symptoms controlled; do not exceed 8 mg per 24 hrs oxycodone-acetaminophen 5-325 mg Tablet 1 tab feeding tube DAILY oxycodone-acetaminophen [Percocet] 5-325 mg Tablet 1 tab feeding tube BID PRN PRN (Reason: Pain) modafinil 200 mg Tablet 200 mg feeding tube DAILY baclofen 10 mg Tablet 10 mg feeding tube BID bisacodyl 10 mg Suppository 10 mg MT DAILY PRN (Reason: Constipation) hyoscyamine sulfate [Levsin] 0.125 mg Tablet 0.125 mg feeding tube Q4H PRN PRN (Reason: SECRETIIONS) hyoscyamine sulfate [Levsin] 0.125 mg Tablet 0.125 mg feeding tube Q6H PRN PRN (Reason: Secretions) nystatin 100,000 unit/gram Cream 1 applic TOPICAL BID ibuprofen 400 mg Tablet 400 mg feeding tube BID Enema 19-7 gram/118 mL Enema 118 ml MT DAILY PRN (Reason: CONSTIPATION) coal tar 1 % Shampoo 1 applic TOPICAL TH mupirocin 2 % Ointment 1 applic TOPICAL TID furosemide 20 mg Tablet 20 mg feeding tube DAILY betamethasone dipropionate 0.05 % Lotion 1 applic TOPICAL DAILY PRN (Reason: REDNESS) trolamine salicylate 10 % Cream 1 applic TOPICAL 4X/DAY PRN (Reason: ARTHRITIS) trolamine salicylate [Aspercreme] 10 % Cream 1 applic TOPICAL QHS metoprolol tartrate 25 mg Tablet 12.5 mg feeding tube BID acetaminophen 325 mg Capsule 325 mg feeding tube Q6H PRN (Reason: Pain) pantoprazole [address] For Susp In Packet 40 mg feeding tube DAILY Multi Vitamin 9 mg iron/15 mL Liquid 5 ml PO DAILY lactulose 20 gram/30 mL Solution 10 g feeding tube DAILY glatiramer [Copaxone] 40 mg/mL Syringe 40 mg SUBCUT MOWEFR Biotene Dry Mouth Oral Rinse Mouthwash 15 ml MUCOUS MEMBRANE Q4H PRN PRN (Reason: Dry Mouth) Rx Instructions: swish for 15-30 secs , then spit out; do not swallow Primary Care Provider: Rogelio Jasno Referrals: Rogelio Jason [Primary Care Provider] -
[2022-01-13] MEDS: 0.9% Normal Saline 1,000 ML 1000 ML IV (12:43)
--- NOTE | 2022-01-13 12:45 | RAD_ITS ---
STUDY: X-RAY CHEST REASON FOR EXAM: Female, 71 years old. Course breath sounds TECHNIQUE: Single AP portable view of the chest. COMPARISON: None. FINDINGS: EKG electrodes are seen. There is evidence of a pulmonary infiltrate in the right lower lobe with a small right pleural effusion. Normal size heart. Normal mediastinum and anthony. Normal visualized pulmonary arteries. There is atherosclerotic calcification of the aortic arch with tortuosity. There is a dextroscoliosis of the thoracic spine. There is degenerative osteoarthritis of the bilateral shoulders. There is no demonstrated abnormality of the visualized soft tissue structures of the upper abdomen. RAD/Chest 1 View (Portable) IMPRESSION: Pulmonary infiltrate in the right lower lobe with a small right pleural effusion. Electronically Signed: Jeb Meng MD at 13:20 EDT ,
[2022-01-13 12:50] LABS: Absolute Lymphocyte Count 1.08 X10^3/uL (0.83-4.51); Absolute Neutrophil Count 27.3 X10^3/uL (2.0-7.7); Basophil# 0.08 X10^3/uL; Basophil% 0.3 % (0-1); Eosinophil# 0.03 X10^3/uL; Eosinophils% 0.1 % (0-5); Hematocrit 35.6 % (37-47); Hemoglobin 11.4 g/dL (12.0-15.0); Lymphocyte # 1.08 X10^3/ul (0.83-4.51); Lymphocyte % 3.5 % (19-41); Mean Corpuscular Hgb 27.8 pg (27.0-32.0); Mean Corpuscular Volume 86.8 fL (81-99); Mean Platelet Vol. 9.8 fl (6.2-12.0); Monocyte# 2.38 X10^3/uL; Monocyte% 7.6 % (0-10); NRBC Flagged by Analyzer 0 % (0-5); Neutrophil # 27.32 X10^3/uL (2.7-7.7); Neutrophil % 87.5 % (47-70); POSITIVE COUNT YES; POSITIVE DIFFERENTIAL YES; Platelet Count 367 K/mm3 (150-450); RBC Distribution Width CV 14.3 % (11.6-14.6); RBC Distribution Width SD 45.2 fl (35.1-43.9)
[2022-01-13 12:53] LABS: White Blood Count 31.2 K/mm3 (4.4-11.0)
[2022-01-13 12:54] LABS: Differential Indicated SCAN CRITERIA MET
[2022-01-13 13:02] LABS: ALB/GLOB Ratio 0.6 RATIO (0.9-2.4); AST(SGOT) 17 U/L (15-37); Alanine Aminotransfer ALT/SGPT 15 U/L (13-56); Albumin, Serum 2.9 g/dL (3.2-5.0); Alkaline Phosphatase 99 U/L (45-117); Anion Gap 15 (5-15); BUN 12 mg/dL (7-18); BUN/Creat Ratio 45.6 RATIO (10-20); Calcium,Total 9.6 mg/dL (8.5-10.1); Chloride 102 mmol/L (98-107); Creatinine, Serum 0.26 mg/dL (0.55-1.02); EST Glomerular Filtration Rate 272 mL/min (>60); Est Glom Filt Rate - Afr Amer 329 mL/min (>60); Estimated Creatinine Clearance 43.92 ml/min; Globulin 4.6 g/dL (2.2-4.2); Glucose 91 mg/dL (74-106); Potassium 3.8 mmol/L (3.5-5.1); Protein, Total 7.5 g/dL (6.4-8.2); Sodium Level 132 mmol/L (136-145)
--- NOTE | 2022-01-13 13:05 | RAD_ITS ---
STUDY: X-RAY - ABDOMEN/PELVIS REASON FOR EXAM: Female, 71 years old. gastrografin to check peg tube placement. TECHNIQUE: Single AP view of the abdomen / pelvis. COMPARISON: None. FINDINGS: GASTROGRAFIN was injected into the indwelling PEG tube. The PEG tube is in the distal portion of the stomach. RAD/Abdomen Single View IMPRESSION: The PEG tube is in the distal portion of the stomach. Electronically Signed: Jeb Meng MD at 13:53 EDT ,
[2022-01-13 13:40] LABS: Platelet Estimate ADEQUATE (ADEQ); Red Cell Morphology NORM C+C NORMAL (NORM C&C)
--- NOTE | 2022-01-13 15:47 | CT_ITS ---
STUDY: CT ABDOMEN AND PELVIS WITH CONTRAST REASON FOR EXAM: Female, 71 years old. evaluate feeding tube area RADIATION DOSAGE (If Supplied By Facility): CTDIvol = ( 20.94 ) mGy, DLP = ( 1124.47 ) mGycm TECHNIQUE: Transaxial images were obtained from the dome of the diaphragm to the symphysis pubis without oral contrast. IV 100mL Isovue-[id number] was administered. Sagittal and coronal images were reconstructed. Individualized dose optimization techniques were used for this CT. COMPARISON: None. FINDINGS: Bibasilar atelectasis or infiltrates more severe on the right.. The visualized portions of the heart are within normal limits. Normal liver. Normal gallbladder and extrahepatic biliary system. Normal spleen. Diffuse pancreatic atrophy. Normal bilateral adrenal glands. Normal right kidney. Normal left kidney. Percutaneously placed feeding tube noted with tip entering the gastric body extending into the distal gastric antrum. No free air noted or extravasation of contrast Normal small intestine. Normal colon. No evidence for acute appendicitis. Atherosclerotic changes of the aorta without evidence for aneurysm. Normal inferior vena cava. Normal retroperitoneum. Suprapubic catheter noted within the poorly distended thick-walled bladder. Uterus not visualized consistent with hysterectomy Mild focal soft tissue swelling within subcutaneous fat at the site of G-tube insertion.. Lumbar spine demonstrates mild spondylosis Severely diffusely atrophic pelvic and hip musculature. CT/Abdomen/Pelvis W IV Cont ONLY IMPRESSION: Bibasilar atelectasis or infiltrates more pronounced on the right Mild focal soft tissue swelling or dissection with tip in the distal gastric antrum.. No evidence for intraperitoneal air or contrast extravasation No other significant abnormalities with other findings as above Electronically Signed: Nael Quan MD at 17:12 EDT ,
--- NOTE | 2022-01-13 15:53 | HP.PCM.HOS_ITS ---
HPI - General General Date of Admission: 01/13/22 Date of Service: 01/13/22 Chief Complaint: PEG tube malfunction, increased oral secretions. HPI Narrative The patient is a 71 y/o F w/ PMHx: Chronic anemia/Fe deficiency anemia, Multiple sclerosis with neurogenic bowel s/p PEG tube placement noted to be chronically non-communicative, Anxiety and Depression, Chronic pain syndrome, HTN/chronic sinus tachycardia, GERD who presents to the [facility] ED on 01/13/22 with history of previously being on hospice however was recently revoked [facility] with significant tachycardia and hypoxia with noted upon initial presentation recently replaced PEG tube in the left upper quadrant with bilious versus coffee-ground drainage surrounding the insertion with some irritation also of the skin of the ostomy prompting ED evaluation. Patient chronically per ECF is non-communicative, eyes are open and she will try to speak but is unable to do so with chronic significant debility using contractures especially of upper extremities with inability to lift either her upper or lower extremities at her baseline. Daughter notes that normally she is on Levsin and this helped significantly with patient secretions but recently with the PEG tube issues and copious amounts of material coming from around the insertion site they had to stop her medications and since then she has had significant increased oral secretions. Work-up in the ED included T97.4, heart rate 136, BP 121/103, respiratory rate 25, 96% on 2 L nasal cannula, CBC with WBC 31.2, hemoglobin 11.4, MCV 86.6, platelet 367 with significant left shift, CMP with sodium 132, carbon oxide 15, BUN/creatinine 12/0.26 otherwise not marked, chest x-ray with pulmonary infiltrate in the right lower lobe as well as small right pleural effusion, KUB to check PEG tube placement with the PEG tube is in the distal portion of the stomach. In the ED patient ministered 1 L normal saline as well as IV rocephin and flagyl. CT abdomen requested and patient will be taken shortly per ED physician. [facility] Medical History (Updated 01/13/22 @ 15:[address] Fransisco Shelby MD) Anemia Multiple sclerosis Narcolepsy Neurogenic bowel Nonrheumatic aortic (valve) insufficiency Osteoarthritis Tachycardia Home Medications acetaminophen 325 mg capsule 325 mg feeding tube Q6H PRN Pain 10/22/21 [History Last Taken Unknown] acetaminophen 325 mg tablet 650 mg feeding tube Q4H PRN Fever 10/22/21 [History Last Taken Unknown] acetaminophen 650 mg rectal suppository 650 mg NV Q4H PRN PAIN/FEVER 10/22/21 [History Last Taken Unknown] aspirin 81 mg tablet,delayed release 81 mg feeding tube DAILY 10/22/21 [History Last Taken Unknown] baclofen 10 mg tablet 10 mg feeding tube BID 10/22/21 [History Last Taken Unknown] betamethasone dipropionate 0.05 % lotion 1 applic topical DAILY PRN REDNESS 10/22/21 [History Last Taken Unknown] bisacodyl 10 mg rectal suppository 10 mg NV DAILY PRN Constipation 10/22/21 [History Last Taken Unknown] coal tar 1 % shampoo 1 applic topical TH 10/22/21 [History Last Taken Unknown] dextromethorphan-guaifenesin 10 mg-100 mg/5 mL oral liquid 10 ml PO BID 10/22/21 [History Last Taken Unknown] dextromethorphan-guaifenesin 10 mg-100 mg/5 mL oral liquid 10 ml feeding tube Q6H PRN PRN Cough 10/22/21 [History Last Taken Unknown] furosemide 20 mg tablet 20 mg feeding tube DAILY 10/22/21 [History Last Taken Unknown] glatiramer 40 mg/mL subcutaneous syringe (Copaxone) 40 mg subcut MOWEFR 10/22/21 [History Last Taken Unknown] hyoscyamine sulfate 0.125 mg tablet (Levsin) 0.125 mg feeding tube Q4H PRN PRN SECRETIIONS 10/22/21 [History Last Taken Unknown] hyoscyamine sulfate 0.125 mg tablet (Levsin) 0.125 mg feeding tube Q6H PRN PRN Secretions 10/22/21 [History Last Taken Unknown] ibuprofen 400 mg tablet 400 mg feeding tube BID 10/22/21 [History Last Taken Unknown] lactulose 20 gram/30 mL oral solution 10 g feeding tube DAILY 10/22/21 [History Last Taken Unknown] loperamide 1 mg/5 mL oral liquid 1 mg feeding tube 4X/DAY 10/22/21 [History Last Taken Unknown] metoprolol tartrate 25 mg tablet 12.5 mg feeding tube BID 10/22/21 [History Last Taken Unknown] modafinil 200 mg tablet 200 mg feeding tube DAILY 10/22/21 [History Last Taken Unknown] multivitamin with minerals-iron fumarate 9 mg iron/15 mL oral liquid (Multi Vitamin) 5 ml PO DAILY 10/22/21 [History Last Taken Unknown] mupirocin 2 % topical ointment 1 applic topical TID 10/22/21 [History Last Taken Unknown] nystatin 100,000 unit/gram topical cream 1 applic topical BID 10/22/21 [History Last Taken Unknown] ondansetron HCl 4 mg tablet 4 mg feeding tube Q6H PRN Nausea 10/22/21 [History Last Taken Unknown] oxycodone-acetaminophen 5 mg-325 mg tablet 1 tab feeding tube DAILY 10/22/21 [History Last Taken Unknown] oxycodone-acetaminophen 5 mg-325 mg tablet (Percocet) 1 tab feeding tube BID PRN PRN Pain 10/22/21 [History Last Taken Unknown] pantoprazole 40 mg granules delayed-release for susp in packet 40 mg feeding tube DAILY 10/22/21 [History Last Taken Unknown] paroxetine HCl 10 mg tablet 15 mg PO QHS 10/22/21 [History Last Taken Unknown] phenazopyridine 200 mg tablet 200 mg feeding tube TID PRN BURNING 10/22/21 [History Last Taken Unknown] saliva substitute combo no.9 (Biotene Dry Mouth Oral Rinse mouthwash) 15 ml mucous membrane Q4H PRN PRN Dry Mouth 10/22/21 [History Last Taken Unknown] sennosides 8.6 mg-docusate sodium 50 mg tablet (Senexon-S) 1 tab-cap PO BID 10/22/21 [History Last Taken Unknown] sodium phosphates 19 gram-7 gram/118 mL enema (Enema) 118 ml NV DAILY PRN CONSTIPATION 10/22/21 [History Last Taken Unknown] sulfamethoxazole 400 mg-trimethoprim 80 mg tablet (Bactrim) 1 tab feeding tube DAILY 10/22/21 [History Last Taken Unknown] trolamine salicylate 10 % topical cream 1 applic topical 4X/DAY PRN ARTHRITIS 10/22/21 [History Last Taken Unknown] trolamine salicylate 10 % topical cream (Aspercreme) 1 applic topical QHS 10/22/21 [History Last Taken Unknown] Allergy/AdvReac Type Severity Reaction Status Date / Time ciprofloxacin [From Cipro] Allergy Other Verified 10/22/21 09:53 codeine Allergy NEEDS Verified 10/22/21 09:53 FOLLOW-UP fluoxetine [From Prozac] Allergy NEEDS Verified 10/22/21 09:53 FOLLOW-UP methylprednisolone Allergy NEEDS Verified 10/22/21 09:53 FOLLOW-UP Family History (Updated 01/13/22 @ 16:[address] Danica Price MD) Mother Leukemia Cancer Heart disease Father Cancer Lung cancer COPD (chronic obstructive pulmonary disease) Heart disease Surgical History (Updated 01/13/22 @ 16:[address] Danica Price MD) History of hysterectomy S/P percutaneous endoscopic gastrostomy (PEG) tube placement Social History (Updated 01/13/22 @ 16:[address] Danica Price MD) housing: detention Smoking Status: Never smoker alcohol intake: never substance use type: does not use ROS Review of Systems ROS Unobtainable: other Details: Due to underlying severe advanced MS, non- communicative. Vital Signs Vital Signs Vital Signs: 01/13/22 11:56 01/13/22 11:59 Temperature 97.4 F L Temperature Source Temporal Pulse Rate 136 H Respiratory Rate 25 H Respiratory Pattern Tachypnea Blood Pressure 121/103 H Blood Pressure Mean 109 Pulse Ox 96 Oxygen Delivery Method Nasal Cannula Oxygen Flow Rate (L/min) 2 Weight Weight: 138 lb 7.205 oz Body Mass Index (BMI) 24.5 Physical Exam Narrative Physical Examination: General: Awake, alert but unable to answer any orientation questions, severe advanced MS with noncommunicative status, laying/seated upright in the ED, obvious significant upper oral airway secretions noted. Skin: Normal color, normal turgor, no icterus, no cyanosis except occasional staged ecchymoses. HEENT: AT/NC, EOM appear intact but unable to effectively have examination given underlying advanced MS, PERRLA, dry MM, no carotid bruits or JVD noted. Lungs: Significantly coarse, right greater than left, worse bases, mildly increased respiratory rate, significant upper airway/oral secretions evident, no wheezing. Heart: Tachycardic with regular rhythm; no gallop, rub audible. Abdomen: Soft, no obvious grimacing with palpation, PEG tube in place with significant secretions being admitted from around the PEG tube insertion, some concerning for possible blood with frothy clear material, decreased bowel sounds, no obvious HSM. Extremities: No cyanosis, mild pedal edema not markedly pitting, significant bilateral upper extremity contractures, lower extremities and heel boots Neurological: Patient awake, alert, unable to answer any orientation questions, cognitive function significantly decreased baseline given advanced MS, currently seems baseline intact; pupils equally reactive to light and accommodation, cranial nerves difficult to assess given noncommunicative and debilitated status, strength accordingly severely global decreased Psychiatric: Affect appears flat, no acute evidence of depressive or anxiety feelings. Results Lab / Micro Data Result Diagrams: 01/13/22 12:40 01/13/22 12:40 Labs: Laboratory Results - last 24 hr 01/13/22 12:40: WBC 31.2 H*, RBC 4.10 L, Hgb 11.4 L, Hct 35.6 L, MCV 86.8, MCH 27.8, MCHC 32.0, RDW Std Deviation 45.2 H, RDW Coeff of Jaki 14.3, Plt Count 367, MPV 9.8, Immature Gran % (Auto) 1.000 H, Neut % (Auto) 87.5 H, Lymph % (Auto) 3.5 L, [place] % (Auto) 7.6, Eos % (Auto) 0.1, Baso % (Auto) 0.3, Absolute Neuts (auto) 27.3 H, Absolute Lymphs (auto) 1.08, Nucleated RBC % 0, Diff Path Review July, Platelet Estimate ADEQUATE, RBC Morphology NORM C+C 01/13/22 12:40: Sodium 132 L, Potassium 3.8, Chloride 102, Carbon Dioxide 15.0 L , Anion Gap 15, BUN 12, Creatinine 0.26 L, Estim Creat Clear Calc 43.92, Est GFR (MDRD) Af Amer 329, Est GFR (MDRD) Non-Af 272, BUN/Creatinine Ratio 45.6 H, Glu cose 91, Calcium 9.6, Total Bilirubin 0.60, AST 17, ALT 15, Alkaline Phosphatase 99, Total Protein 7.5, Albumin 2.9 L, Globulin 4.6 H, Albumin/Globulin Ratio 0.6 L Radiology Impression Chest X-Ray 01/13/22 12:45 IMPRESSION: Pulmonary infiltrate in the right lower lobe with a small right pleural effusion. Electronically Signed: Jeb Meng MD at 13:20 EDT , KUB X-Ray 01/13/22 13:05 IMPRESSION: The PEG tube is in the distal portion of the stomach. Electronically Signed: Jeb Meng MD at 13:53 EDT , Assessment & Plan Assessment/Plan (1) Pneumonia: PLAN: Plan The patient is a 71 y/o F w/ PMHx: Chronic anemia/Fe deficiency anemia, Multiple sclerosis with neurogenic bowel s/p PEG tube placement noted to be chronically non-communicative, Anxiety and Depression, Chronic pain syndrome, HTN/chronic sinus tachycardia, GERD who presents to the [facility] ED on 01/13/22 with history of previously being on hospice however was recently revoked [facility] with significant tachycardia and hypoxia with noted upon initial presentation recently replaced PEG tube in the left upper quadrant with bilious versus coffee-ground drainage surrounding the insertion with some irritation also of the skin of the ostomy prompting ED evaluation. #1. Right lower lobe pneumonia with associated small right pleural effusion, potential aspiration: Will admit to PCU, maintain on telemetry, maintain on oxygen with wean as tolerated to room air, PRN albuterol, maintained on IV Rocephin/Flagyl given aspiration component concerns with oral secretions, has PEG tube as noted, NPO, HOB, IS parameters w/ pending sputum cultures, full respiratory viral panel, COVID PCR and urine antigens. Bld cx x 2 obtained in the ED. PT/OT/ST/CM consultations for discharge planning. #2. PEG tube malfunction with questionable GI bleed: Hemoglobin stable from prior, will cycle H&H's to be cautious, will guaiac contents profusely pouring from the PEG tube insertion site, awaiting CT abdomen to assess further and if appropriate will request surgery involvement versus GI. #3. Multiple sclerosis with neurogenic bowel s/p PEG tube placement, s ignificant severe contractures, baseline noncommunicative status: KUB obtained in the ED is noted to check PEG tube placement with noted the PEG tube is in the distal portion of the stomach. We will continue patient home baclofen, GI bowel regimen, Copaxone, Levsin, #4. Chronic anemia, iron deficiency anemia: Admission hemoglobin 11.4, baseline primarily 10-11, will continue to trend as noted given concerns with #2, continue iron supplementation. #5. Narcolepsy, anxiety depression: We will continue patient home modafinil and paroxetine on regimen. #6. Hypertension, sinus tachycardia: We will continue patient home chronic metoprolol, Lasix with hold parameters as needed given acute presentation and necessity for judicious hydration regimen. #7. GERD: We will continue patient on PPI. #8. DVT prophylaxis: SCDs, will hold on any chemoprophylaxis given concern as noted #2. #9. CODE status: Patient IMELDA is the patient's daughter who is present and living will is currently in place. Discussed CODE status at length including difference between FULL code, DNR-CCA and DNR-CC status. Following discussions about the differences in these status, requested DNR-CC status and as noted she had been in hospice however it was revoked today in order for her to be able to come and have the PEG tube specifically evaluated. Advanced Care Planning Face to Face Time: 16 minutes. Charges/Coding Visit Charges Inpatient E&M: 72976 Init Hosp L3 Procedures Hospitalists Procedures: 97199 Advncd Care Plan 30 Min
--- NOTE | 2022-01-13 15:58 | NURSING ---
DR TIMMONS IN ER
--- NOTE | 2022-01-13 16:07 | NURSING ---
PCU [facility] PNEUMONIA, LEUKOCYTOSIS, HX OF SEVERE MS, FEEDING TUBE
[2022-01-13] MEDS: Ceftriaxone 1 GM/50 ML BAG IV (16:22)
[2022-01-13] MEDS: 0.9% Normal Saline 1,000 ML 100 ML IV (17:25)
[2022-01-13] MEDS: metroNIDAZOLE 500 MG/100 ML BAG 100 MG IV ×2 (17:26→22:44)
[2022-01-13 17:55] LABS: Hematocrit 35.8 % (37-47); Hemoglobin 11.4 g/dL (12.0-15.0)
--- NOTE | 2022-01-13 18:14 | EX.PCM.CON.S ---
Assessment & Plan Assessment/Plan (1) Malfunction of gastrostomy tube: PLAN: see below PLAN: Plan The gastrostomy tube is presently functioning - I flushed it and it is working well. Gastrostomy tube care keep tube perpendicular to skin so that surrounding tissues can heal/close in around tube skin care - protect skin around gastrostomy site - gauze to absorb leakage flange for gastrostomy tube was pulled a distance away from the skin, this should be kept snug to the skin I have educated the patient's daughter regarding above. HPI Consult Data Date of Consult: 01/14/22 HPI Narrative Reason for Consultation: gastrostomy tube concerns HPI Narrative: Asked to see patient by Dr. Danica Price, hospitalist at [facility] ADITI MANUEL, is a 71 F who presents with drainage, tenderness, erythema of gastrostomy site. The patient is a resident of a skilled nursing. She is admitted at present to [facility] for pneumonia [facility] Medical History (Updated 01/14/22 @ 11:[address] Zabrina Parekh MD) Anemia Malfunction of gastrostomy tube Multiple sclerosis Narcolepsy Neurogenic bowel Nonrheumatic aortic (valve) insufficiency Osteoarthritis Tachycardia Home Medications acetaminophen 325 mg tablet 325 mg feeding tube Q4H PRN Pain 10/22/21 [History Last Taken Unknown] acetaminophen 650 mg rectal suppository 650 mg MS Q4H PRN Fever 10/22/21 [History Last Taken Unknown] aspirin 81 mg tablet,delayed release 81 mg feeding tube DAILY 10/22/21 [History Last Taken 01/10/22] baclofen 10 mg tablet 10 mg feeding tube BID 10/22/21 [History Last Taken 01/10/22] betamethasone dipropionate 0.05 % lotion 1 applic topical DAILY PRN REDNESS 10/22/21 [History Last Taken Unknown] bisacodyl 10 mg rectal suppository 10 mg MS DAILY PRN Constipation 10/22/21 [History Last Taken Unknown] dextromethorphan-guaifenesin 10 mg-100 mg/5 mL oral liquid 10 ml PO 4X/DAY PRN Cough 10/22/21 [History Last Taken Unknown] dextromethorphan-guaifenesin 10 mg-100 mg/5 mL oral liquid 10 ml feeding tube BID PRN Cough 10/22/21 [History Last Taken 01/10/22] furosemide 20 mg tablet 20 mg feeding tube DAILY 10/22/21 [History Last Taken 01/10/22] glatiramer 40 mg/mL subcutaneous syringe (Copaxone) 40 mg subcut MOWEFR 10/22/21 [History Last Taken 01/11/22] hyoscyamine sulfate 0.125 mg tablet (Levsin) 0.125 mg feeding tube Q3H PRN SECRETIIONS 10/22/21 [History Last Taken 01/12/22] hyoscyamine sulfate 0.125 mg tablet (Levsin) 0.125 mg feeding tube Q6H PRN PRN Secretions 10/22/21 [History Last Taken 01/13/22] ibuprofen 400 mg tablet 400 mg feeding tube BID SHOULDER PAIN 10/22/21 [History Last Taken 01/10/22] lactulose 20 gram/30 mL oral solution 10 g feeding tube DAILY 10/22/21 [History Last Taken 01/10/22] loperamide 1 mg/5 mL oral liquid 1 mg feeding tube 4X/DAY DIARRHEA 10/22/21 [History Last Taken Unknown] metoprolol tartrate 25 mg tablet 12.5 mg feeding tube BID 10/22/21 [History Last Taken 01/10/22] modafinil 200 mg tablet 200 mg feeding tube DAILY 10/22/21 [History Last Taken 01/10/22] multivitamin with minerals-iron fumarate 9 mg iron/15 mL oral liquid (Multi Vitamin) 5 ml PO DAILY 10/22/21 [History Last Taken 01/10/22] nystatin 100,000 unit/gram topical cream 1 applic topical BID DRESSING CHANGE 10/22/21 [History Last Taken 01/13/22] ondansetron HCl 4 mg tablet 4 mg feeding tube Q6H PRN Nausea 10/22/21 [History Last Taken 01/12/22] oxycodone-acetaminophen 5 mg-325 mg tablet 1 tab feeding tube 4X/DAY PRN Pain 10/22/21 [History Last Taken Unknown] oxycodone-acetaminophen 5 mg-325 mg tablet (Percocet) 1 tab feeding tube BID PAIN 10/22/21 [History Last Taken 01/12/22] paroxetine HCl 10 mg tablet 10 mg PO QHS DEPRESSION 10/22/21 [History Last Taken Unknown] phenazopyridine 200 mg tablet 200 mg feeding tube Q8H PRN BURNING 10/22/21 [History Last Taken Unknown] saliva substitute combo no.9 (Biotene Dry Mouth Oral Rinse mouthwash) 15 ml mucous membrane Q4H PRN PRN Dry Mouth 10/22/21 [History Last Taken Unknown] sennosides 8.6 mg-docusate sodium 50 mg tablet (Senexon-S) 1 tab PO BID PRN Constipation 10/22/21 [History Last Taken Unknown] sodium phosphates 19 gram-7 gram/118 mL enema (Enema) 118 ml MS DAILY PRN CONSTIPATION 10/22/21 [History Last Taken Unknown] sulfamethoxazole 400 mg-trimethoprim 80 mg tablet (Bactrim) 1 tab feeding tube DAILY 10/22/21 [History Last Taken 01/10/22] trolamine salicylate 10 % topical cream 1 applic topical 4X/DAY PRN ARTHRITIS 10/22/21 [History Last Taken Unknown] trolamine salicylate 10 % topical cream (Aspercreme) 1 applic topical QHS 10/22/21 [History Last Taken 01/11/22] RENEWLIFE ULTIMATE 1 cap G-tube DAILY PROBITOTIC 01/13/22 [History Last Taken Unknown] cefuroxime axetil 500 mg tablet 500 mg PO BID PEG TUBE INFECTION 01/13/22 [History Last Taken 01/12/22] hyoscyamine sulfate 0.125 mg/mL oral drops (Hyosyne) 1 - 2 drp PO Q3H PRN Secretions 01/13/22 [History Last Taken Unknown] lorazepam 0.5 mg tablet 0.25 mg PO Q3H PRN SOB 01/13/22 [History Last Taken Unknown] morphine concentrate 100 mg/5 mL (20 mg/mL) oral solution 5 - 10 mg feeding tube Q2H PRN PAIN/SOB 01/13/22 [History Last Taken 01/12/22] pantoprazole 20 ml G-tube DAILY GERD 01/13/22 [History Last Taken 01/10/22] sodium chloride 0.45 % 0.45 % irrigation solution 1,000 ml irrigation TID G-TUBE FLUSH 01/13/22 [History Last Taken 01/13/22] Allergy/AdvReac Type Severity Reaction Status Date / Time ciprofloxacin [From Cipro] Allergy Other Verified 10/22/21 09:53 codeine Allergy NEEDS Verified 10/22/21 09:53 FOLLOW-UP fluoxetine [From Prozac] Allergy NEEDS Verified 10/22/21 09:53 FOLLOW-UP methylprednisolone Allergy NEEDS Verified 10/22/21 09:53 FOLLOW-UP Family History Mother Leukemia Cancer Heart disease Father Cancer Lung cancer COPD (chronic obstructive pulmonary disease) Heart disease Surgical History History of hysterectomy S/P percutaneous endoscopic gastrostomy (PEG) tube placement Social History housing: skilled nursing Smoking Status: Never smoker alcohol intake: never substance use type: does not use ROS ROS Narrative unable to obtain due to patient is non communicating Physical Exam Const alert Neck supple Resp normal respiratory effort GI GI Narrative: abdomen is soft and benign gastrostomy tube - the flange is far removed on the tube from the surface of the skin, I moved the flange to be up against the skin, and placed gauze between the skin and the flange I have counseled the daughter that the purpose of the flange is to maintain the tube to be perpendicular to the skin Lab / Micro Data Attestation: I reviewed the patient's lab results. Result Diagrams: 01/14/22 05:24 01/14/22 05:24 Labs: Laboratory Results - last 24 hr 01/13/22 12:40: WBC 31.2 H*, RBC 4.10 L, Hgb 11.4 L, Hct 35.6 L, MCV 86.8, MCH 27.8, MCHC 32.0, RDW Std Deviation 45.2 H, RDW Coeff of Jaki 14.3, Plt Count 367, MPV 9.8, Immature Gran % (Auto) 1.000 H, Neut % (Auto) 87.5 H, Lymph % (Auto) 3.5 L, [place] % (Auto) 7.6, Eos % (Auto) 0.1, Baso % (Auto) 0.3, Absolute Neuts (auto) 27.3 H, Absolute Lymphs (auto) 1.08, Nucleated RBC % 0, Diff Path Review May , Platelet Estimate ADEQUATE, RBC Morphology NORM C+C 01/13/22 12:40: Sodium 132 L, Potassium 3.8, Chloride 102, Carbon Dioxide 15.0 L, Anion Gap 15, BUN 12, Creatinine 0.26 L, Estim Creat Clear Calc 43.92, Est GFR (MDRD) Af Amer 329, Est GFR (MDRD) Non-Af 272, BUN/Creatinine Ratio 45.6 H, Glucose 91, Calcium 9.6, Total Bilirubin 0.60, AST 17, ALT 15, Alkaline Phosphatase 99, Total Protein 7.5, Albumin 2.9 L, Globulin 4.6 H, Albumin/Globulin Ratio 0.6 L 01/13/22 17:40: Hgb 11.4 L, Hct 35.8 L Radiology Impression Chest X-Ray 01/13/22 12:45 IMPRESSION: Pulmonary infiltrate in the right lower lobe with a small right pleural effusion. Electronically Signed: Jeb Meng MD at 13:20 EDT , KUB X-Ray 01/13/22 13:05 IMPRESSION: The PEG tube is in the distal portion of the stomach. Electronically Signed: Jeb Meng MD at 13:53 EDT , Abdomen/Pelvis CT 01/13/22 15:47 IMPRESSION: Bibasilar atelectasis or infiltrates more pronounced on the right Mild focal soft tissue swelling or dissection with tip in the distal gastric antrum.. No evidence for intraperitoneal air or contrast extravasation No other significant abnormalities with other findings as above Electronically Signed: Nael Quan MD at 17:12 EDT ,
[2022-01-13 22:23] LABS: Hematocrit 32.6 % (37-47); Hemoglobin 10.4 g/dL (12.0-15.0)
[2022-01-14] VITALS (21 sets, daily range): BP systolic 76–181; BP diastolic 53–90; PULSE 117–155; RESP 16–31; TEMP 36.4–37.1; O2SAT 88–97
[2022-01-14] MEDS: 0.9% Saline Lock 10 ML Syringe IV ×2 (00:17→15:26)
[2022-01-14] MEDS: Morphine 2 MG/ML Syringe IV (00:17)
[2022-01-14 00:40] LABS: Hematocrit 33.2 % (37-47); Hemoglobin 10.2 g/dL (12.0-15.0)
--- NOTE | 2022-01-14 02:10 | NURSING ---
PT unable to bring up sputum. Respiratory states they do not due the sputum induction. Will continue to try and get sputum. Will pass along to day shift
[2022-01-14] MEDS: metroNIDAZOLE 500 MG/100 ML BAG 100 MG IV ×2 (05:34→14:55)
[2022-01-14] MEDS: 0.9% Normal Saline 1,000 ML 100 ML IV ×2 (05:34→15:26)
[2022-01-14 05:56] LABS: Absolute Lymphocyte Count 0.89 X10^3/uL (0.83-4.51); Absolute Neutrophil Count 19.4 X10^3/uL (2.0-7.7); Basophil# 0.08 X10^3/uL; Basophil% 0.4 % (0-1); Eosinophil# 0.03 X10^3/uL; Eosinophils% 0.1 % (0-5); Hematocrit 33.8 % (37-47); Hemoglobin 10.4 g/dL (12.0-15.0); Lymphocyte # 0.89 X10^3/ul (0.83-4.51); Mean Corp Hgb Conc 30.8 g/dL (32-36); Mean Corpuscular Hgb 27.4 pg (27.0-32.0); Mean Corpuscular Volume 88.9 fL (81-99); Mean Platelet Vol. 9.6 fl (6.2-12.0); Monocyte# 1.86 X10^3/uL; Monocyte% 8.3 % (0-10); NRBC Flagged by Analyzer 0 % (0-5); Neutrophil # 19.36 X10^3/uL (2.7-7.7); POSITIVE DIFFERENTIAL YES; Platelet Count 339 K/mm3 (150-450); RBC Distribution Width CV 14.5 % (11.6-14.6); RBC Distribution Width SD 47.1 fl (35.1-43.9); White Blood Count 22.5 K/mm3 (4.4-11.0)
[2022-01-14 06:12] LABS: Differential Indicated SCAN CRITERIA MET
[2022-01-14 06:15] LABS: Differential Comment SCANNED
[2022-01-14 06:21] LABS: ALB/GLOB Ratio 0.6 RATIO (0.9-2.4); AST(SGOT) 7 U/L (15-37); Alanine Aminotransfer ALT/SGPT 13 U/L (13-56); Albumin, Serum 2.5 g/dL (3.2-5.0); Alkaline Phosphatase 88 U/L (45-117); Anion Gap 13 (5-15); BUN 10 mg/dL (7-18); BUN/Creat Ratio 51.8 RATIO (10-20); Calcium,Total 8.8 mg/dL (8.5-10.1); Chloride 110 mmol/L (98-107); Creatinine, Serum 0.19 mg/dL (0.55-1.02); EST Glomerular Filtration Rate 389 mL/min (>60); Est Glom Filt Rate - Afr Amer 471 mL/min (>60); Estimated Creatinine Clearance 43.92 ml/min; Globulin 4.2 g/dL (2.2-4.2); Glucose 92 mg/dL (74-106); Protein, Total 6.7 g/dL (6.4-8.2); Sodium Level 137 mmol/L (136-145)
[2022-01-14] MEDS: Ceftriaxone 1 GM/50 ML BAG IV (09:51)
[2022-01-14] MEDS: Potassium Chloride 10mEq/100mL 10 MEQ/100 ML IV.SOLN. 100 MEQ IV BOLUS ×4 (09:51→13:23)
--- NOTE | 2022-01-14 11:52 | PCM.PN.SRG ---
Subjective Subjective Patient status unchanged Objective Data Objective Data Vital Signs: Vital Signs Temp Pulse Resp BP Pulse Ox O2 Del Method O2 Flow Rate 98.5 F 126 H 26 H 147/73 H 96 Nasal Cannula 2 01/14/22 11:00 01/14/22 11:00 01/14/22 11:00 01/14/22 11:00 01/14/22 11:00 01/14/22 11:00 01/14/22 11:00 Oxygen Flow Rate (L/min) 2 Oxygen Delivery Method Nasal Cannula Weight: 58 kg Body Mass Index (BMI) 22.8 Intake & Output: Intake and Output for Last 24 Hours 01/12/22 01/13/22 01/14/22 23:59 23:59 23:59 Intake Total 1360 / 1360 1596.67 / 1596.67 Output Total 1100 / 1100 Balance 1360 / 660 496.67 / 496.67 Lab / Micro Data Attestation: I reviewed the patient's lab results. Result Diagrams: 01/14/22 05:24 01/14/22 05:24 Labs: Laboratory Results - last 24 hr 01/13/22 12:40: WBC 31.2 H*, RBC 4.10 L, Hgb 11.4 L, Hct 35.6 L, MCV 86.8, MCH 27.8, MCHC 32.0, RDW Std Deviation 45.2 H, RDW Coeff of Jaki 14.3, Plt Count 367, MPV 9.8, Immature Gran % (Auto) 1.000 H, Neut % (Auto) 87.5 H, Lymph % (Auto) 3.5 L, [place] % (Auto) 7.6, Eos % (Auto) 0.1, Baso % (Auto) 0.3, Absolute Neuts (auto) 27.3 H, Absolute Lymphs (auto) 1.08, Nucleated RBC % 0, Diff Path Review May , Platelet Estimate ADEQUATE, RBC Morphology NORM C+C 01/13/22 12:40: Sodium 132 L, Potassium 3.8, Chloride 102, Carbon Dioxide 15.0 L, Anion Gap 15, BUN 12, Creatinine 0.26 L, Estim Creat Clear Calc 43.92, Est GFR (MDRD) Af Amer 329, Est GFR (MDRD) Non-Af 272, BUN/Creatinine Ratio 45.6 H, Glucose 91, Calcium 9.6, Total Bilirubin 0.60, AST 17, ALT 15, Alkaline Phosphatase 99, Total Protein 7.5, Albumin 2.9 L, Globulin 4.6 H, Albumin/Globulin Ratio 0.6 L 01/13/22 17:30: COVID-19 ([place]Y) Not Detected 01/13/22 17:40: Hgb 11.4 L, Hct 35.8 L 01/13/22 22:05: Hgb 10.4 L, Hct 32.6 L 01/14/22 00:31: Hgb 10.2 L, Hct 33.2 L 01/14/22 05:24: WBC 22.5 H, RBC 3.80 L, Hgb 10.4 L, Hct 33.8 L, MCV 88.9, MCH 27.4, MCHC 30.8 L, RDW Std Deviation 47.1 H, RDW Coeff of Jaki 14.5, Plt Count 339, MPV 9.6, Immature Gran % (Auto) 1.200 H, Neut % (Auto) 86.0 H, Lymph % (Auto) 4.0 L, [place] % (Auto) 8.3, Eos % (Auto) 0.1, Baso % (Auto) 0.4, Absolute Neuts (auto) 19.4 H, Absolute Lymphs (auto) 0.89, Nucleated RBC % 0, Differential Comment SCANNED, Diff Path Review July01/14/22 05:24: Sodium 137, Potassium 3.0 L, Chloride 110 H, Carbon Dioxide 14.0 L, Anion Gap 13, BUN 10, Creatinine 0.19 L, Estim Creat Clear Calc 43.92, Est GFR (MDRD) Af Amer 471, Est GFR (MDRD) Non-Af 389, BUN/Creatinine Ratio 51.8 H, Glucose 92, Calcium 8.8, Total Bilirubin 0.50, AST 7 L, ALT 13, Alkaline Phosphatase 88, Total Protein 6.7, Albumin 2.5 L, Globulin 4.2, Albumin/Globulin Ratio 0.6 L Micro: Microbiology 01/14/22 00:15 Urine Catheter - Catheter Legionella Antigen - Final 01/14/22 00:15 Urine Catheter - Catheter Streptococcus pneumoniae Antigen (M - Final 01/13/22 17:30 Mucosa - Nose Respiratory Panel (PCR) - Final Radiography Diagnostic Testing: Radiology Impression Chest X-Ray 01/13/22 12:45 IMPRESSION: Pulmonary infiltrate in the right lower lobe with a small right pleural effusion. Electronically Signed: Jeb Meng MD at 13:20 EDT , KUB X-Ray 01/13/22 13:05 IMPRESSION: The PEG tube is in the distal portion of the stomach. Electronically Signed: Jeb Meng MD at 13:53 EDT , Abdomen/Pelvis CT 01/13/22 15:47 IMPRESSION: Bibasilar atelectasis or infiltrates more pronounced on the right Mild focal soft tissue swelling or dissection with tip in the distal gastric antrum.. No evidence for intraperitoneal air or contrast extravasation No other significant abnormalities with other findings as above Electronically Signed: Nael Quan MD at 17:12 EDT , Physical Exam Narrative abdomen is soft and benign it appears that the patient's contracture of her left upper extremity seem to place pressure at the gastrostomy tube site the site itself has no leakage Assessment & Plan Assessment/Plan (1) Malfunction of gastrostomy tube: PLAN: Gastrostomy tube can be used PLAN: Plan I will sign off this case Please re-consult if any concerns, thank you
[2022-01-14] MEDS: Jevity 1.5 1,000 ML 25 ML GT (12:07)
--- NOTE | 2022-01-14 13:08 | PN.HOSP_ITS ---
Subjective Subjective Patient seen and examined. Patient is largely nonverbal but able to try to sound some words during review of systems. She denied being in pain. She remains tachypneic and tachycardic and also has a low-grade fever. She remains on 2 L of oxygen. Objective Data Objective Data Vital Signs: Vital Signs Temp Pulse Resp BP Pulse Ox O2 Del Method O2 Flow Rate 98.5 F 129 H 30 H 156/74 H 94 Nasal Cannula 2 01/14/22 12:00 01/14/22 12:00 01/14/22 12:00 01/14/22 12:00 01/14/22 12:00 01/14/22 12:00 01/14/22 12:00 Oxygen Flow Rate (L/min) 2 Oxygen Delivery Method Nasal Cannula Weight: 127 lb 13.89 oz Body Mass Index (BMI) 22.8 Intake & Output: Intake and Output for Last 24 Hours 01/12/22 01/13/22 01/14/22 23:59 23:59 23:59 Intake Total 1360 / 1360 1696.67 / 1696.67 Output Total 1350 / 1350 Balance 1360 / 660 346.67 / 346.67 Lab / Micro Data Result Diagrams: 01/14/22 05:24 01/14/22 05:24 Labs: Laboratory Results - last 24 hr 01/13/22 12:40: Diff Path Review July, Platelet Estimate ADEQUATE, RBC Morphology NORM C+C 01/13/22 17:30: COVID-19 (TAY) Not Detected 01/13/22 17:40: Hgb 11.4 L, Hct 35.8 L 01/13/22 22:05: Hgb 10.4 L, Hct 32.6 L 01/14/22 00:31: Hgb 10.2 L, Hct 33.2 L 01/14/22 05:24: WBC 22.5 H, RBC 3.80 L, Hgb 10.4 L, Hct 33.8 L, MCV 88.9, MCH 27.4, MCHC 30.8 L, RDW Std Deviation 47.1 H, RDW Coeff of Jaki 14.5, Plt Count 339, MPV 9.6, Immature Gran % (Auto) 1.200 H, Neut % (Auto) 86.0 H, Lymph % (Auto) 4.0 L, [place] % (Auto) 8.3, Eos % (Auto) 0.1, Baso % (Auto) 0.4, Absolute Neuts (auto) 19.4 H, Absolute Lymphs (auto) 0.89, Nucleated RBC % 0, Differential Comment SCANNED, Diff Path Review July01/14/22 05:24: Sodium 137, Potassium 3.0 L, Chloride 110 H, Carbon Dioxide 14.0 L, Anion Gap 13, BUN 10, Creatinine 0.19 L, Estim Creat Clear Calc 43.92, Est GFR (MDRD) Af Amer 471, Est GFR (MDRD) Non-Af 389, BUN/Creatinine Ratio 51.8 H, Glucose 92, Calcium 8.8, Total Bilirubin 0.50, AST 7 L, ALT 13, Alkaline Phosphatase 88, Total Protein 6.7, Albumin 2.5 L, Globulin 4.2, Albumin/Globulin Ratio 0.6 L Micro: Microbiology 01/14/22 00:15 Urine Catheter - Catheter Legionella Antigen - Final 01/14/22 00:15 Urine Catheter - Catheter Streptococcus pneumoniae Antigen (M - Final 01/13/22 17:30 Mucosa - Nose Respiratory Panel (PCR) - Final Radiography Diagnostic Testing: Radiology Impression Chest X-Ray 01/13/22 12:45 IMPRESSION: Pulmonary infiltrate in the right lower lobe with a small right pleural effusion. Electronically Signed: Jeb Meng MD at 13:20 EDT , KUB X-Ray 01/13/22 13:05 IMPRESSION: The PEG tube is in the distal portion of the stomach. Electronically Signed: Jeb Meng MD at 13:53 EDT , Abdomen/Pelvis CT 01/13/22 15:47 IMPRESSION: Bibasilar atelectasis or infiltrates more pronounced on the right Mild focal soft tissue swelling or dissection with tip in the distal gastric antrum.. No evidence for intraperitoneal air or contrast extravasation No other significant abnormalities with other findings as above Electronically Signed: Nael Quan MD at 17:12 EDT , Physical Exam Const alert Constitutional Narrative: nonverbal, flat affect HEENT head/scalp atraumatic Mouth: dry mucous membranes Eyes PERRL and EOMs intact bilaterally Neck no lymphadenopathy and supple Resp Resp Narrative: diminished breath sounds bibasally, no wheezes or crackles. tachypneic Cardio regular rhythm, S1 normal heart sound, S2 normal heart sound and no murmurs Cardio Narrative: tachycardic GI normal to inspection, nondistended, normoactive bowel sounds, soft to palpation, non-tender and non-distended GI Narrative: PEG tube in place Extremity Extremity Narrative: contractures Neuro Neuro Narrative: nonverbal, alert Assessment & Plan Assessment/Plan (1) Malfunction of gastrostomy tube: (2) History of muscular dystrophy: (3) Pneumonia: PLAN: Plan #Sepsis due to RIght lower lobe pneumonia * concern for aspiration. Has malfunctioning PEG tube in situ * Is tachycardic and tachypneic and also has markedly elevated white cell count. * on IV rocephin and metronidazole * blood cultures ordered. Respiratory panel negative. * breathing treatment with bronchodilators. Titrate oxygen to maintain sats>90% * WBC down to 22.5 from 31.2 on admission * was on home hospice and this was revoked for her to be brought to the hospital * covid is negative * #Hypokalemia: Potassium is 3.0. Will replace IV and monitor. #Non-anion gap metabolic acidosis * Bicarb is 14. Anion gap is within normal limits. Will monitor and if it worsens will consult nephrology. * #malfunctioning PEG tube * has questionable GI bleed. * General surgery on board. PEG Tube flushed by general surgery who indicate it can be used. * #MUltiple sclerosis * has neurogenic bowel. Has PEG tube in situ. * also has significant contractures. * on baclofen, copaxone and levsin * #Sinus tachycardia: * On metoprolol. This appears to be chronic as she has had it Back in October. Continue gentle hydration with IV fluids #GERD: On PPI DVT prophylaxis; SCDs COde status: DNRCC Charges/Coding Visit Charges Inpatient E&M: 45871 Subs Hosp L3
--- NOTE | 2022-01-14 13:44 | CASEMGMT ---
Addendum entered by Ava Gonzalez 01/14/22 16:31: GALEN called [facility] and spoke to Richard regarding patient and requested a call back. GALEN received voice mail from Camila at [facility] returning this blog writer's phone call. GALEN was advised by that patient is deteriorating and to call the hospice. GALEN called [facility]. GALEN spoke to Camila who stated that this is the patient's 13th benefit period and thus we need to fax clinicals and it requires a face to face. GALEN gave Camila a verbal referral for Hospice. Fax referral to [phone]. GALEN faxed referral to [facility]. GALEN spoke to Natalee, patient's daughter. She said that patient has lived at [facility] for 5 years and she would like patient to return to the home with hospice. GALEN called Tru at [facility] and she checked with DON and they said that they can take patient back. Ava ARRIETA Original Note: GALEN met with patient and she voiced that her plan is to [facility] [place]. GALEN called Shannan at [facility] and spoke to Shannan. Shannan said that patient is alert x 4 but her community engagement representative is Natalee, who they usually update. Patient is linked with [facility]. Shannan said that patient can return to [facility] as her bed is on bed hold and she did not believe patient needed precert. GALEN called patient's daughter, Natalee. She confirmed the plan is for patient to return to [facility] with [facility]. Ava ARRIETA
[2022-01-14] MEDS: hydrALAZINE 20 MG/ML Vial 10 MG IV (15:26)
[2022-01-14] MEDS: morphine (oral solution) 10MG/0.5ML Syringe 5 MG SL/PO ×3 (16:44→21:03)
[2022-01-14] MEDS: Atropine Sulfate 1% 2 ml Bottle 4 DRP SL ×2 (16:44→17:49)
[2022-01-14] MEDS: Furosemide 40 MG/4 ML Vial IV (16:55)
[2022-01-14] MEDS: LORazepam 2 MG/ML Bottle 0.5 MG SL ×2 (17:47→21:02)
--- NOTE | 2022-01-14 17:50 | NURSING ---
per MD, fluids and tube feeds stopped
--- NOTE | 2022-01-14 17:51 | CASEMGMT ---
GALEN Note GALEN received call from Camila at [facility]. She said that they could meet patient at [facility] but not [facility] as it is outside their area. GALEN updated anaesthetic technician and RN and subsequently anaesthetic technician contacted MD. GALEN along with GALEN Barba, RN and anaesthetic technician met with patient's daughter, Natalee. Discussed that [facility] is not able to come to the hospital as it is out of the area. Natalee was open and gave verbal consent to speak to [facility] for patient. Natalee said that she would prefer that patient stay here in the hospital as opposed to going to the [facility]. GALEN called Richard at [facility] and made referral. GALEN faxed referral packet to [facility]. GALEN spoke to Lianne at local [facility] and she advised that she has contacted the admission nurse that patient will need to be seen GEERMI[facility] for admission. Ava ARRIETA
[2022-01-14] MEDS: Metoprolol Tartrate 25 MG Tablet GT (18:19)
--- NOTE | 2022-01-14 18:27 | CASEMGMT ---
GALEN called [facility] and spoke to Faina about the urgency of [facility] coming to the hospital for patient. GALEN was switched to Susan and she was going to check on the status of nursing coming to the hospital for patient. AGLEN advised Susan of patient's vitals, per her request. GALEN received call from Susan. A nurse from [facility] is in the parking lot and coming into the hospital for patient. lining ironer updated. Ava ARRIETA
--- NOTE | 2022-01-14 18:49 | NURSING ---
PURPLE BRACELET ON PT'S LEFT ARM IS NOT TO BE REMOVED PER DAUGHTER'S WISHES
--- NOTE | 2022-01-14 19:14 | CM.ED ---
GALEN called [facility] and advised patient's daughter, who is medical POA, decided on [facility]. GALEN called [facility] and spoke to Jeanette and advised [facility] was working with family and per the MD we did not feel that patient would return to the facility. Ava ARRIETA
--- NOTE | 2022-01-14 20:20 | NURSING ---
Addendum entered by Nano Corado 01/14/22 22:08: Patient not stable to transport to [facility]. This RN updated Dr Ferrer, [facility] hospitalist, of recommendations and orders received. Original Note: employment instructional associate present, has spoke with hospice INCLINOMETER TESTER. Recommendations given to this RN. Family updated by hospice plan administrator.
--- NOTE | 2022-01-14 20:50 | NURSING ---
Family called this RN in room at this time and stated that they were ready to have the bipap removed. This RN medicated patient with morphine and ativan. Bipap removed at this time. Family also requested that monitors be removed.
--- NOTE | 2022-01-15 00:20 | NURSING ---
This RN in room with patient and family. Daughter states she would like to hold off on next dose of morphine and ativan as patient appears peaceful and pain free.
[2022-01-15 01:58] VITALS: PULSE 133; RESP 24; O2SAT 74
[2022-01-15] MEDS: LORazepam 2 MG/ML Bottle 0.5 MG SL (01:58)
[2022-01-15] MEDS: morphine (oral solution) 10MG/0.5ML Syringe 5 MG SL/PO (01:58)
[2022-01-15 04:45] VITALS: PULSE 111; RESP 6; O2SAT 71
--- NOTE | 2022-01-15 04:50 | NURSING ---
This RN called into room by patient's daughter. Upon arrival, patient with no pulse, no breath sounds. This RN verified no heart beat for 1 minute. Raman Jones RN also verified absent heartbeat for one minute. Daughter remains at bedside. Notified Dr Ferrer. Time of 0450.
--- NOTE | 2022-01-15 14:52 | PCM.DEATH ---
Preliminary Cause of Preliminary Cause of Preliminary Cause of : Acute hypoxic respiratory failure due to aspiration pneumonia Date of Admission: 01/13/22 Date of : 01/15/22 Principle Diagnosis acute hypoxic respiratory failure due to aspiration pneumonia. Problem List: Active and Suspected Problems (Updated 01/14/22 @ 11:[address] Zabrina Parekh MD) Malfunction of gastrostomy tube (Acute) Pneumonia (Acute) Hx of leukocytosis (Acute) History of muscular dystrophy (Acute) Hospital Course Patient is a 71-year-old female with a past medical history as outlined which includes multiple sclerosis with neurogenic bowel s/p PEG tube placement. Patient had been in her skilled nursing on hospice but this was revoked and she was brought into the ED on the day of admission on account of concerns about PEG tube malfunction. She had recently had a PEG tube inserted and had been noticed in the skilled nursing that she was having bilious versus coffee-ground drainage surrounding the insertion with some irritation of the skin of the ostomy prompting ED evaluation. She was also noted to be hypoxic and tachycardic. Patient's baseline was that she was noncommunicative mostly and has significant debility with contractures many of her upper extremities. On admission, KUB showed PEG tube in the distal portion of the stomach. General surgery was consulted and flushed the PEG tube successfully and declared it good to use. Hospital course was complicated by worsening respiratory status with patient requiring increasing amounts of oxygen. Patient was clearly aspirating on his secretions as well. This hospitalist had an extensive chart with patient's daughter about CODE STATUS as mother was DNRCC and had been on hospice which was revoked for her to come in. Daughter stated that they do not want any aggressive measures and patient was actually able to vocalize that she wanted to be on hospice. Hospice was therefore consulted. Patient on 01/15/2022 at 04 50. Preliminary cause of was acute hypoxic respiratory failure due to aspiration pneumonia in the setting of multiple sclerosis. Visit Charges Inpatient E&M: 12138 Disch Hosp
--- NOTE | 2022-01-16 09:54 | CASEMGMT ---
SW contacted [facility], per family requested and SW referred to [facility] as they are the only credential Hospice at [facility]. Ava ARRIETA
[2022-01-16 12:56] LABS: Pathologist Review Reviewed
[2022-01-16 13:00] LABS: Pathologist Review Reviewed
== END 2022-01-15 06:05 | DRG 871 ==
LOC: ED 15:54 → PCU 16:50
PROVIDERS: Admitting Provider Family Medicine; Emergency Provider Emergency Medicine; PCP Family Medicine; Visit Provider Student in an Organized Health Care Education/Training Program
DX: A41.9 Sepsis, unspecified organism (principal); J96.01 Acute respiratory failure with hypoxia; J69.0 Pneumonitis due to inhalation of food and vomit; E87.20 Acidosis, unspecified; K59.2 Neurogenic bowel, not elsewhere classified; K94.23 Gastrostomy malfunction; K92.2 Gastrointestinal hemorrhage, unspecified; G35 Multiple sclerosis; D50.9 Iron deficiency anemia, unspecified; E87.6 Hypokalemia; I10 Essential (primary) hypertension; K21.9 Gastro-esophageal reflux disease without esophagitis; I35.1 Nonrheumatic aortic (valve) insufficiency; Z20.822 Contact with and (suspected) exposure to COVID-19; G89.4 Chronic pain syndrome; Z66 Do not resuscitate; R53.81 Other malaise; G47.419 Narcolepsy without cataplexy; Z79.82 Long term (current) use of aspirin; Z79.899 Other long term (current) drug therapy
CPT/HCPCS: 36415; 71045; 74018; 74177; 80053; 85014; 85018; 85025; 87449; 87633; 87635; 94002; 97802; 99284; J7030; Q9967; A4216; J1940; U0003; U0005